=== PATIENT | female | born 1970 | race African-American/Black ===

== ENCOUNTER 2020-01-09 11:43 | Outpatient (CLI) | payer BC, SELFPAY ==
--- NOTE | ~2020-01-09 | CT_ITS ---
EXAMINATION: CT chest wo con DATE: 01/09/2020 12:20 INDICATION: Other disorders of the lung, lung nodule TECHNIQUE: Computed tomography (CT) of the chest was performed without intravenous contrast. The dose -length product (DLP) was 134.68 mGy-cm. Automated exposure control and iterative reconstruction tech [employer] were employed. COMPARISON: None FINDINGS: There is a 4 mm nodule of the left lower lobe on image 67. A 2 mm nodule is present in the right lower lobe on image 54. There is a 4 mm triangular nodule in association with the major fissure on the right, consistent with a fissural lymph node. A 3 mm nodule is present in the left lower lobe on image 74. The lungs are free of acute opacities. There is no pleural effusion or pneumothorax. No pathologically enlarged thoracic lymph nodes are identified. The heart size is normal. IMPRESSION: 1. Pulmonary nodules measuring up to 4 mm. If the patient has no risk factors for malignancy, no furt her follow up is required. If there are risk factors for malignancy (i.e., history of smoking, asbes tos or radiation exposure), consider followup CT in 12 months. Reviewed, dictated and finalized at location A. IMPRESSION: 1. Pulmonary nodules measuring up to 4 mm. If the patient has no risk factors f or malignancy, no further follow up is required. If there are risk factors for malignancy (i.e., history of smoking, asbestos or radiation exposure), conside r followup CT in 12 months.
== END 2020-01-09 11:44 | disposition home or self-care (01) ==
PROVIDERS: PCP Family Medicine; Visit Provider Nurse Practitioner Family
DX: R91.8 Other nonspecific abnormal finding of lung field (principal); J98.4 Other disorders of lung
CPT/HCPCS: 71250

== ENCOUNTER 2020-08-19 14:37 | Outpatient (CLI) | payer BC, SELFPAY ==
[2020-08-19 15:12] LABS: Add Urine Microscopic? NO; Appearance Urine Clear (Clear); Bilirubin Urine Negative (Negative); Blood Urine Negative (Negative); Color Urine Yellow (Yellow); Glucose Urine UA Negative (Negative); Ketones Urine Negative (Negative); Leukocyte Esterase Ur Negative LEU/UL (NEGATIVE); Nitrate Urine Negative (Negative); Protein Urine Negative (Negative); Specific Grav Ur 1.027 (1.001-1.035); Urobilinogen Urine Negative mg/dL (<2.0)
== END 2020-08-19 14:38 | disposition home or self-care (01) ==
PROVIDERS: PCP Family Medicine; Visit Provider Nurse Practitioner Family
DX: N39.0 Urinary tract infection, site not specified (principal)
CPT/HCPCS: 81003; 87086

== ENCOUNTER 2020-10-28 10:45 | Outpatient (CLI) | payer BC, SELFPAY | END 2020-10-28 10:46 | disposition home or self-care (01) | LOC: ANHCOVIDVC 10:45 | PROVIDERS: PCP Family Medicine | DX: Z23 Encounter for immunization (principal) | CPT/HCPCS: 0001A; 91300 ==

== ENCOUNTER 2020-11-18 10:40 | Outpatient (CLI) | payer BC, SELFPAY | END 2020-11-18 10:41 | disposition home or self-care (01) | LOC: ANHCOVIDVC 10:41 | PROVIDERS: PCP Family Medicine | DX: Z23 Encounter for immunization (principal) | CPT/HCPCS: 0002A; 91300 ==

== ENCOUNTER 2020-12-17 12:23 | Outpatient (CLI) | payer BC, SELFPAY ==
--- NOTE | 2020-12-17 16:52 | WPDPFTINT ---
PFT Procedure Performed PFT Procedure Performed Spirometry with Pre/Post Bronchodilator Plethysmography (Lung Vol) Diffusing Cap (DLCO) Flow Vol Loop PFT Interpretation This is a pulmonary function test with pre and post-bronchodilator spirometry, plethysmography and diffusing capacity. The test was performed and results interpreted in accordance with the 2019 and 2005 ATS/ERS Task Force guidelines respectively using the Global Lung Function Initiative-2012 reference equations. Patient demonstrated good effort and cooperation. Reproducibility criteria were met. The quality of the pre bronchodilator spirometry maneuver was Grade A and post bronchodilator spirometry maneuver was Grade A. Findings: Spirometry: Contour the expiratory flow tracing resembles that of whitch's hat . The contour of the inspiratory flow tracing is truncated. The pre bronchodilator FVC is 2.51 L, 69% predicted. The pre bronchodilator FEV1 is 1.96, 68% predicted. The FEV1: FVC ratio is 78%. The post bronchodilator FVC is 2.76 L, representing a 10% increase. The post bronchodilator FEV1 is 2.28 L, representing a 16% increase. Plethysmography: The total lung capacity is 4.20 L, 80% predicted. The functional residual capacity is 2.16 L, 65% predicted. The residual volume is 1.69 L, 87% predicted. Diffusing capacity: The absolute diffusion capacity is 17.8, 71% predicted. The diffusing capacity corrected for alveolar volume is 4.58, 106% predicted. In comparison to the previous pulmonary function test in our laboratory on 06/05/2019. The post bronchodilator FVC is unchanged from 2.56 L to 2.76 L. The post bronchodilator FEV1 is unchanged from 2.15 L to 2.28 L. The total lung capacity is unchanged from 4.39 L to 4.20 L. The functional residual capacity is decreased from 3.15 L to 2.16 L. The residual volume is unchanged from 1.59 L to 1.69 L. The absolute diffusion capacity is unchanged from 17.1 to 17.8. The diffusing capacity corrected for alveolar volume is unchanged from 5.14 to4.58. Impression: There is a moderate restrictive ventilatory abnormality. The spirometry is normal without evidence of an obstructive abnormality. There is significant improvement after inhaling a single dose of albuterol. The absolute diffusing capacity is mildly decreased and normalizes when corrected for alveolar volume. In comparison to the previous pulmonary function test on 06/05/2019 there has been a greater than anticipated decrease in the functional residual capacity with no significant change in the FVC, FEV1, total lung capacity, residual volume, absolute diffusion capacity or the diffusing capacity corrected for alveolar volume. Clinical correlation is recommended
== END 2020-12-17 12:24 | disposition home or self-care (01) ==
LOC: ANHPFT 12:29
PROVIDERS: Visit Provider Nurse Practitioner Family
DX: J98.4 Other disorders of lung (principal); B94.8 Sequelae of other specified infectious and parasitic diseases
CPT/HCPCS: 94060; 94726; 94729

== ENCOUNTER → 2020-12-23 09:07 | Outpatient (CLI) | payer BC, SELFPAY ==
--- NOTE | ~2020-12-23 | CT_ITS ---
EXAMINATION: CT diagnostic chest wo con EXAM DATE: 12/23/2020 09:28 INDICATION: R91.1 - Solitary pulmonary nodule. COVID pneumonia June 2020. TECHNIQUE: Spiral CT of the chest without contrast. Axial, coronal and sagittal images of the chest were reviewed. Coronal maximum intensity pixel images of chest reviewed. The dose-length product ( DLP) for this examination was 167.85 mGy-cm. The exposure was tailored according to patient size (au to mA exposure control), and iterative reconstruction (ASIR) was used as additional dose reduction te chnique. Comparison is made to prior examination from 01/09/2020. FINDINGS: Several small calcified and noncalcified pulmonary nodules within each lung up to 4 mm in size, unchanged consistent with granulomata, postinfectious residua. No suspicious pulmonary nodules. Mild emphysema. Trace pericardial effusion. Tracheobronchial tree is patent. There is no mediast inal, hilar or axillary lymphadenopathy. There is no pneumothorax. Heart normal in size. No dorinda dence of coronary arterial calcification. Upper abdomen is unremarkable. There is thoracic spondyl osis without osteoblastic or osteolytic lesions identified. IMPRESSION: 1. Postinfectious residua. 2. Mild emphysema. Reviewed, dictated and finalized at location A.
== END ==
PROVIDERS: Visit Provider Nurse Practitioner Family
DX: R91.1 Solitary pulmonary nodule (principal); R05 Cough; B94.8 Sequelae of other specified infectious and parasitic diseases; R06.02 Shortness of breath; J43.9 Emphysema, unspecified
CPT/HCPCS: 71250

== ENCOUNTER 2021-03-09 07:55 | Emergency (ER) | payer BC, SELFPAY ==
--- NOTE | ~2021-03-09 | XR_ITS ---
EXAMINATION: XR chest 2V DATE: 03/09/2021 11:39 INDICATION: Posterior chest pain TECHNIQUE: PA and lateral views of the chest were obtained. COMPARISON: Chest radiograph dated 05/12/2017 FINDINGS: The lungs remain clear with no focal airspace opacities, pulmonary edema, pleural effusion or pneumot horax. The cardiomediastinal silhouette is normal. Mild thoracic dextrocurvature with mild mid thorac ic spondylosis. C5-C6 prosthetic disc. IMPRESSION: 1. No acute cardiopulmonary disease. Reviewed, dictated and finalized at location B.
--- NOTE | ~2021-03-09 | XR_ITS ---
EXAMINATION: XR thoracic spine 3V DATE: 03/09/2021 11:39 INDICATION: Back pain. Left shoulder pain. TECHNIQUE: 3 views of thoracic spine were obtained. COMPARISON: Thoracic spine radiographs 09/29/2014 FINDINGS: There is 6 degrees dextrocurvature of thoracic spine. Vertebral body heights and interverte bral disc heights are normal. There are changes of disc replacement at C5-C6. IMPRESSION: 1. No etiology for the patient's symptoms. Reviewed, dictated and finalized at location A.
[2021-03-09 07:58] VITALS: BP 157/107; PULSE 83; RESP 16; TEMP 36.7; O2SAT 98
[2021-03-09 11:02] VITALS: BP 131/101; PULSE 76; RESP 18; O2SAT 99
--- NOTE | 2021-03-09 11:08 | PC.NURSE ---
Dr. Martínez notified of patient's moderate risk on columbia scale. Patient reports that her preparing to end her life was in her 20s.
--- NOTE | 2021-03-09 11:18 | ECG_ITS ---
Measurements Intervals [place] Rate: 75 P: 59 CT: 158 QRS: 14 QRSD: 84 T: 32 QT: 376 QTc: 422 Interpretive Statements SINUS RHYTHM POSSIBLE LEFT ATRIAL ENLARGEMENT DELAYED PRECORDIAL R/S TRANSITION BASELINE ARTIFACT- I, II, III, AVR, AVL, AVF, V2-V6 BORDERLINE ECG Electronically Signed On 03-09-2021 12:12:09 CDT by Miles Schreiber D.O.
--- NOTE | 2021-03-09 11:21 | ED.BACK ---
HPI - Back Pain/Injury General Chief Complaint: Neck Pain/Injury Stated Complaint: back, shoulder cramping Time Seen by Provider: 03/09/21 11:03 Source: patient and RN notes reviewed Mode of arrival: ambulatory Limitations: no limitations History of Present Illness HPI Narrative: This is a 51 year old female who presents for evaluation of left upper back pain. She reports having mild mid upper back pain over the past week. This morning around 4 am she developed sudden onset left upper back, left upper arm pain when her started rubbing her back. Her pain has been constant. She is unable to get comfortable. Her pain is worse with laying on her left side, or liftin her left arm. She also reports she had left anterior chest pain with palpation with this back pain. She denies shortness of breath, nausea, vomiting, abdominal pain, fever or chills. She took ibuprofen 800 mg and gabapentin this morning with out any relief. She states it feels like muscle spasm she has had with prior issues with neck pain. Related Data Allergies Allergy/AdvReac Type Severity Reaction Status Date / Time vancomycin Allergy Unknown Unknown Verified 11/25/20 15:54 Review of Systems Review of Systems: All systems reviewed & are unremarkable except as noted in HPI and below PMFSH Past Medical History Medical History (Updated 03/09/21 @ 13:14 by Yaneth Martínez MD) Anxiety Chronic neck pain GERD (gastroesophageal reflux disease) Paresthesias Pulmonary nodule Surgical History Surgical History (Updated 03/09/21 @ 11:27 by Yaneth Martínez MD) H/O neck surgery Family History Family History Sibling Family history of suicide Social History Social History Smoking status: Never smoker Second hand tobacco smoke exposure: Yes Alcohol intake: current Substance use: never Substance use type: does not use Gender identity (if verbalized by the patient): Female Exam Const: General: alert Orientation/consciousness: patient oriented x3 Eyes: EOM: EOMs intact bilaterally Chest: Chest palpation & inspection: tenderness pectoral muscle on the left diffusely Resp: Effort & Inspection: normal respiratory effort and no retractions Auscultation: clear to auscultation bilaterally Cardio: Rate: regular rate Rhythm: regular rhythm Heart sounds: no murmurs GI: GI Palp: Yes Soft to palpation, No Tenderness to palpation present (GI) and No Guarding due to palpation present (GI) Auscultation: normal bowel sounds Back/Spine/Pelvis: Back: no CVA tenderness Skin: General skin exam: normal color Rashes: no rashes Neuro: General: patient oriented x3, moves all extremities and CN's II-XI intact bilaterally Psych: Mental Status: mental status grossly normal Affect: normal affect Course Reevaluation(s) Reevaluation #1: Patient reports she feels better. Her states patient has started a new position at work in which he is having to repetitive lean over and use her arms. She has been having pain since. I Discussed with patient labs are unremarkable. Her pain seems to be muscular . This does not seem cardiac, . Patient is neurovascular intact so unlikely acute spinal issue such as abscess or stenosis. Date: 03/09/21 Time: 13:10 Vital Signs Vital signs: Vital Signs Temperature 98.0 F 03/09/21 07:58 Pulse Rate 83 03/09/21 07:58 Respiratory Rate 16 03/09/21 07:58 Blood Pressure 157/107 H 03/09/21 07:58 Pulse Oximetry 98 03/09/21 07:58 Temperature 98.0 F 03/09/21 07:58 Pulse Rate 70 03/09/21 13:17 Respiratory Rate 18 03/09/21 11:02 Blood Pressure 127/86 03/09/21 13:17 Pulse Oximetry 98 03/09/21 13:17 MDM - Back Pain/Injury Medical Records Attestation: I reviewed the patient's medical records. Lab Data Attestation: I reviewed the patient's lab results. Re
[2021-03-09] MEDS: HYDROmorphone HCL INJ (*CRX) 1 MG/ML SYR IV PUSH (12:04)
[2021-03-09] MEDS: ONDANSETRON INJ 4 MG/2 ML VIAL IV PUSH (12:09)
[2021-03-09 12:19] LABS: Basophils Percent Auto 0.3 % (0.2-1.2); Eosinophils Absolute Auto 0.2 K/mm3 (0-0.3); Eosinophils Percent Auto 1.8 % (0-4.4); Hematocrit 39.1 % (37.0-47.0); Hemoglobin 12.2 g/dL (12.0-15.0); Immature Granulocyte Absolute 0.03 K/mm3 (0.00-0.031); Immature Granulocyte Percent A 0.3 % (0-0.5); Lymphocytes Absolute Auto 3.54 K/mm3 (0.9-3.2); Mean Corpuscular HGB Conc 31.2 g/dl (32-36); Mean Corpuscular Hemoglobin 28.7 pg (26-34); Mean Platelet Volume 9.8 fl (7.4-10.4); Monocytes Absolute Auto 0.6 K/mm3 (0.1-0.6); Monocytes Percent Auto 6.3 % (2.6-8.5); Neutrophils Absolute Auto 5.4 K/mm3 (1.3-6.7); Neutrophils Percent Auto 55.3 % (45.5-73.1); Platelet Count Result 226 k/mm3 (150-375); Red Blood Count 4.25 M/mm3 (4.2-5.4); Red Cell Distribution Width 13.8 % (11.5-14.5); White Blood Count 9.8 K/mm3 (4.5-10.0)
[2021-03-09 12:30] LABS: INR 0.9; Partial Thromboplastin Time 29.4 SECONDS (22.3-36.8); Prothrombin Time 11.7 Seconds (11.1-14.7)
[2021-03-09 12:33] LABS: D Dimer 0.35 ug/mL (<0.48)
[2021-03-09 12:34] LABS: Alanine Aminotransferase 22 U/L (4-35); Albumin Level 4.1 g/dL (3.5-5.1); Alkaline Phosphatase 100 U/L (38-126); Anion Gap 5 mmol/L (8-16); Aspartate Amino Transferase 22 U/L (14-36); Bilirubin,Total 0.3 mg/dL (0.2-1.3); Blood Urea Nitrogen 18 mg/dL (7-17); CRP 1.6 mg/dL (<1.0); Calcium 9.2 mg/dL (8.4-10.2); Carbon Dioxide 29 mmol/L (22-30); Chloride 105 mmol/L (98-107); Estimated CRCL calculation 99 ml/min; Estimated Glomerular Filt Rate > 60; Glucose 97 mg/dL (65-110); Potassium 4.2 mmol/L (3.4-5.0); Sodium 139 mmol/L (137-145)
[2021-03-09 12:42] LABS: Troponin I < 0.012 ng/mL (0.000-0.034)
[2021-03-09] MEDS: KETOROLAC 30 MG/ML VIAL (*BKC) IV PUSH (13:14)
[2021-03-09 13:17] VITALS: BP 127/86; PULSE 70; O2SAT 98
== END 2021-03-09 13:38 | disposition home or self-care (01) ==
PROVIDERS: Emergency Provider General Practice; PCP Family Medicine
DX: M54.9 Dorsalgia, unspecified (principal); J43.9 Emphysema, unspecified; F41.9 Anxiety disorder, unspecified
CPT/HCPCS: 36415; 71046; 72072; 80053; 84484; 85025; 85380; 85610; 85730; 86140; 93005; 96374; 96375; 99284; J1170; J1885; J2405

== ENCOUNTER 2021-03-10 14:57 | Outpatient (CLI) | payer BC, SELFPAY ==
--- NOTE | ~2021-03-10 | CT_ITS ---
EXAMINATION: CT cervical spine wo con DATE: 03/10/2021 15:37 INDICATION: Neck pain. Left upper extremity paresthesias. TECHNIQUE: Computed tomography (CT) of the cervical spine was performed without intravenous contrast. Automated exposure control and iterative reconstruction technique were employed. The dose-length pro duct was 479.38 mGy-cm. COMPARISON: Neck CT 10/02/2013 FINDINGS: There is kyphosis of cervical spine. There are changes of disc replacement at C5-C6 with chavez bsidence at C6. Vertebral body heights are normal. There is mildly decreased disc height at C3-C4. Th e following disc levels are specifically discussed: C2-C3: There is no uncovertebral joint osteoarthritis. There is severe right and mild left facet join t osteoarthritis. There is no neural foraminal stenosis. There is no central canal stenosis. C3-C4: There is no uncovertebral joint osteoarthritis. There is mild bilateral facet joint osteoarthr itis. There is no neural foraminal stenosis. There is no central canal stenosis. C4-C5: There is no uncovertebral joint osteoarthritis. There is mild right facet joint osteoarthritis . There is no neural foraminal stenosis. There is no central canal stenosis. C5-C6: There is moderate bilateral uncovertebral joint hypertrophy. There is mild bilateral facet azael nt osteoarthritis. There is mild bilateral neural foraminal stenosis. There is mild central canal theresa nosis. C6-C7: There is no uncovertebral joint osteoarthritis. There is no facet joint osteoarthritis. There is no neural foraminal stenosis. There is no central canal stenosis. C7-T1: There is no uncovertebral joint osteoarthritis. There is mild bilateral facet joint osteoarthr itis. There is no neural foraminal stenosis. There is no central canal stenosis. IMPRESSION: 1. Disc replacement at C5-C6 with abnormal subsidence at C6. 2. Mild cervical spondylosis. Reviewed, dictated and finalized at location A.
== END 2021-03-10 14:58 | disposition home or self-care (01) ==
PROVIDERS: PCP Family Medicine; Visit Provider Nurse Practitioner Family
DX: M54.2 Cervicalgia (principal); M54.6 Pain in thoracic spine; R20.0 Anesthesia of skin; R20.2 Paresthesia of skin; M47.816 Spondylosis without myelopathy or radiculopathy, lumbar region
CPT/HCPCS: 72125

== ENCOUNTER 2021-04-29 00:21 | Day surgery (SDC) | payer BC, SELFPAY ==
[2021-04-15 14:40] VITALS: BMI 31.6
[2021-04-29 06:41] VITALS: BP 165/98; PULSE 80; RESP 18; TEMP 36.2; O2SAT 98
[2021-04-29] MEDS: LACTATED RINGERS 1,000 ML 150 ML IV CONT (06:46)
--- NOTE | 2021-04-29 07:27 | WPDGICN ---
Assessment and Plan Assessment and plan (1) Encounter for screening colonoscopy: Code(s): Z12.11 - Encounter for screening for malignant neoplasm of colon Status: Acute Assessment and Plan: Patient presents for screening colonoscopy. Appears to be at average risk for colon polyps. GI Consult Note Consult date/time: 04/29/21 07:27 HPI: Irma Urbina is a 51 year old female Presents for screening colonoscopy. Her current weight appetite bowel movements are normal. Patient denies abdominal pain. She has had no bleeding. Family history is noncontributory. patient presents today for neoplasia screening colonoscopy. Review of Systems Review of Systems: All systems reviewed & are unremarkable except as noted in HPI and below PMFSH Past Medical History Medical History Anxiety Chronic neck pain GERD (gastroesophageal reflux disease) Paresthesias Pulmonary nodule Surgical History Surgical History H/O neck surgery Family History Family History Sibling Family history of suicide Social History Social History Smoking status: Never smoker Second hand tobacco smoke exposure: Yes Alcohol intake: current Alcohol use details: social Substance use: never Substance use type: does not use Living arrangements: with family Gender identity (if verbalized by the patient): Female Sexual Orientation (if Verbalized by the Patient): Straight or Heterosexual Spiritual care concerns: No Meds Home Medications and Allergies Home Medications Medication Instructions Recorded Confirmed Type ipratropium 0.5 mg-albuterol 3 mg 3 ml INHALATION Q4H PRN #90 ml 10/02/19 04/29/21 Rx (2.5 mg base)/3 mL nebulization soln budesonide-formoterol HFA 160 2 puff INHALATION Q12H 90 Days #3 09/22/20 04/29/21 Rx mcg-4.5 mcg/actuation aerosol amp inhaler pantoprazole 40 mg tablet,delayed 40 mg PO QAM #90 tablet 10/01/20 04/29/21 Rx release valacyclovir 500 mg tablet 500 mg PO DAILY #90 tablet 10/01/20 04/29/21 Rx albuterol sulfate 90 mcg/actuation 2 inh INHALATION Q4-6H PRN #8.5 gm 02/18/21 04/29/21 Rx aerosol inhaler ibuprofen 800 mg PO TID PRN #20 tablet 03/09/21 04/29/21 Rx oxybutynin chloride 5 mg 5 mg PO DAILY #30 tablet 03/18/21 04/29/21 Rx tablet,extended release 24 hr tramadol 50 mg tablet 50 mg PO Q6H PRN #30 tablet 04/09/21 04/29/21 Rx sertraline 50 mg tablet 75 mg PO DAILY 30 Days #45 tablet 04/13/21 04/29/21 Rx fexofenadine [Ranjana Allergy] 180 mg PO DAILY 04/15/21 04/29/21 History meloxicam [Mobic] 7.5 mg PO DAILY 04/15/21 04/29/21 History montelukast [Singulair] 10 mg PO DAILY 04/15/21 04/29/21 History nortriptyline 25 mg capsule 25 mg PO QHS #90 cap 04/16/21 04/29/21 Rx gabapentin 300 mg capsule 300 mg PO QHS #90 cap 04/23/21 04/29/21 Rx Allergies Allergy/AdvReac Type Severity Reaction Status Date / Time vancomycin Allergy Unknown Unknown Verified 04/29/21 06:40 Vital Signs Vital Signs - 24 hr 04/29/21 06:41 Temperature 97.1 F L Pulse Rate 80 Respiratory Rate 18 Blood Pressure 165/98 H Pulse Oximetry 98 Exam Narrative: Physical exam reveals patient to be alert. Vital signs are stable. HEENT exam is unremarkable. Patient is anicteric. Lungs are clear to auscultation and percussion. Heart is without murmur or extra sounds. Abdominal exam bowel sounds present soft nontender with no organomegaly. Digital external rectal exam is normal.
--- NOTE | 2021-04-29 07:58 | WPDANESEPPF ---
Anes - Initial Pre Proc Eval Procedure: Operation Date: 04/29/21 08:00 Proposed Procedures p Screening Colonoscopy - Asif Blake MD Date/Time: 04/29/21 07:58 Surgeon: Asif Blake MD Pre Op Diagnosis: neoplasm screening Patient Data Age: 51 Gender: F Height: 1.78 m Weight: 115.5 kg Last Vital Signs Temp 97.1 F L 04/29/21 06:41 Pulse 80 04/29/21 06:41 Resp 18 04/29/21 06:41 BP 165/98 H 04/29/21 06:41 Pulse Ox 98 04/29/21 06:41 Allergies Allergy/AdvReac Type Severity Reaction Status Date / Time vancomycin Allergy Unknown Unknown Verified 04/29/21 06:40 Home Medications Medication Instructions Recorded Confirmed Type ipratropium 0.5 mg-albuterol 3 mg 3 ml INHALATION Q4H PRN #90 ml 10/02/19 04/29/21 Rx (2.5 mg base)/3 mL nebulization soln budesonide-formoterol HFA 160 2 puff INHALATION Q12H 90 Days #3 09/22/20 04/29/21 Rx mcg-4.5 mcg/actuation aerosol amp inhaler pantoprazole 40 mg tablet,delayed 40 mg PO QAM #90 tablet 10/01/20 04/29/21 Rx release valacyclovir 500 mg tablet 500 mg PO DAILY #90 tablet 10/01/20 04/29/21 Rx albuterol sulfate 90 mcg/actuation 2 inh INHALATION Q4-6H PRN #8.5 gm 02/18/21 04/29/21 Rx aerosol inhaler ibuprofen 800 mg PO TID PRN #20 tablet 03/09/21 04/29/21 Rx oxybutynin chloride 5 mg 5 mg PO DAILY #30 tablet 03/18/21 04/29/21 Rx tablet,extended release 24 hr tramadol 50 mg tablet 50 mg PO Q6H PRN #30 tablet 04/09/21 04/29/21 Rx sertraline 50 mg tablet 75 mg PO DAILY 30 Days #45 tablet 04/13/21 04/29/21 Rx fexofenadine [Ranjana Allergy] 180 mg PO DAILY 04/15/21 04/29/21 History meloxicam [Mobic] 7.5 mg PO DAILY 04/15/21 04/29/21 History montelukast [Singulair] 10 mg PO DAILY 04/15/21 04/29/21 History nortriptyline 25 mg capsule 25 mg PO QHS #90 cap 04/16/21 04/29/21 Rx gabapentin 300 mg capsule 300 mg PO QHS #90 cap 04/23/21 04/29/21 Rx Patient hx anesthesia problems: none Family hx anesthesia problems: none Results Review: All pre-operative results and documents have been reviewed as part of the pre-operative evaluation. [facility] Past Medical History Medical History Anxiety Chronic neck pain GERD (gastroesophageal reflux disease) Paresthesias Pulmonary nodule Surgical History Surgical History H/O neck surgery Family History Family History Sibling Family history of suicide Social History Social History Smoking status: Never smoker Second hand tobacco smoke exposure: Yes Alcohol intake: current Alcohol use details: social Substance use: never Substance use type: does not use Living arrangements: with family Gender identity (if verbalized by the patient): Female Sexual Orientation (if Verbalized by the Patient): Straight or Heterosexual Spiritual care concerns: No Anes - Eval Final PreProcedure Day of Procedure 04/29/21 07:58 Patient weight: obese Heart: regular rate and rhythm Lungs: clear to auscultation Airway: Mallampati scale class III Neurological: alert and oriented Last oral intake: >/= 8 hours ASA classification: III Emergent: no Anesthetic plan: proceed Anesthesia type and monitoring: general GIVS and standard monitoring Results Review: All pre-operative results and documents have been reviewed as part of the pre-operative evaluation. Informed Consent: The patient's anesthetic plan and its attendant risks and benefits were discussed with the patient/family/POA. Questions were solicited and answers provided to the satisfaction of the patient/family/POA.
[2021-04-29 08:28] VITALS: BP 137/90; PULSE 75; RESP 24; O2SAT 100
[2021-04-29 08:38] VITALS: BP 143/79; PULSE 73; RESP 20; O2SAT 100
[2021-04-29 08:48] VITALS: BP 158/113; PULSE 71; RESP 20; O2SAT 100
== END 2021-04-29 09:00 | disposition home or self-care (01) ==
PROVIDERS: PCP Family Medicine; Visit Provider Internal Medicine Gastroenterology
PROC: 0DJD8ZZ Inspection of Lower Intestinal Tract, Via Natural or Artificial Opening Endoscopic (ICD-10-PCS; CPT 45378; principal; 2021-04-29 08:00)
DX: Z12.11 Encounter for screening for malignant neoplasm of colon (principal); K62.1 Rectal polyp; K64.8 Other hemorrhoids; K21.9 Gastro-esophageal reflux disease without esophagitis; F41.9 Anxiety disorder, unspecified; Z79.51 Long term (current) use of inhaled steroids; E66.9 Obesity, unspecified; Z68.36 Body mass index [BMI] 36.0-36.9, adult
CPT/HCPCS: 45385; 88305; J2704; J7120

== ENCOUNTER 2021-08-13 13:48 | Emergency (ER) | payer BC, SELFPAY ==
[2021-08-13 14:06] VITALS: BP 140/82; PULSE 88; RESP 16; TEMP 36.4; O2SAT 100
--- NOTE | 2021-08-13 14:19 | ED.DENTAL ---
HPI - Dental/Oral General Chief complaint: Dental/Oral Stated complaint: Tooth Pain Time Seen by Provider: 08/13/21 14:19 Source: patient Mode of arrival: ambulatory Limitations: no limitations History of Present Illness HPI Narrative: Irma Urbina is a 51 yo female with a PMH of asthma, GERD, herpes, chronic pain, who comes with c/o dental pain x 4-5 days. Pain radiates into neck, She has a dental appt beginning of Aug. Related Data Home Medications Medication Instructions Recorded Confirmed fexofenadine [Ranjana Allergy] 180 mg PO DAILY 04/15/21 07/21/21 meloxicam [Mobic] 7.5 mg PO DAILY 04/15/21 07/21/21 oxycodone 08/13/21 Allergies Allergy/AdvReac Type Severity Reaction Status Date / Time vancomycin Allergy Unknown Unknown Verified 07/21/21 09:50 Review of Systems Review of Systems: CONSTITUTIONAL: Denies fever, chills, sweats. EYES: Denies visual changes, redness, discharge. ENT: Denies rhinorrhea, congestion, sore throat, otalgia. CARDIOVASCULAR: Denies chest pain, palpitations, edema. RESPIRATORY: Denies dyspnea, wheezing, cough GASTROINTESTINAL: Denies abdominal pain, nausea, vomiting, diarrhea. GENITOURINARY: Denies dysuria, hematuria, abnormal discharge SKIN: Denies rash or itching. NEUROLOGIC: Denies numbness, or focal weakness. PSYCHIATRIC: Denies anxiety or depression. has dental pain, swelling in R lower jaw PMFSH Past Medical History Medical History Anxiety Chronic neck pain GERD (gastroesophageal reflux disease) Paresthesias Pulmonary nodule Surgical History Surgical History H/O neck surgery Family History Family History Sibling Family history of suicide Social History Social History Smoking status: Never smoker Second hand tobacco smoke exposure: Yes Alcohol intake: current Alcohol use details: social Substance use: never Substance use type: does not use Gender identity (if verbalized by the patient): Female Sexual Orientation (if Verbalized by the Patient): Straight or Heterosexual Spiritual care concerns: No Comments At time of signature, I agree with nursing past medical, surgical, social and family history. There is no relevant family history pertinent to the presenting complaint. Exam Narrative: GENERAL: This is a well-nourished, well-developed patient, in mild distress. HEAD: normocephalic, atraumatic. EYES: Sclera clear/white. Vision is grossly intact. EARS: External ears normal, Hearing grossly intact. NOSE: External nose normal without nasal discharge, nares without redness, no rhinorrhea. THROAT: Mucous membranes moist, posterior pharynx pink, right second to last molar, tooth 31, has swelling and appears infected and she has mild swelling in her right cheek NECK: Neck supple, non-tender CARDIOVASCULAR: Regular rate and rhythm without murmurs, gallops, or rubs. RESPIRATORY: Clear to auscultation. Breath sounds equal bilaterally. No wheezes, rales, or rhonchi. GASTROINTESTINAL: Abdomen soft, SKIN: warm, intact with no suspicious lesions or rash, good texture and turgor. NEURO: awake, alert, and oriented to person, place and time. There were no obvious focal neurologic abnormalities. Steady gait EXTREMITIES: Normal range of motion. BACK: Nontender without deformity Course Course Emergency Course: Patient comes with dental pain in her right lower jaw x2 3 days, she has an appointment with the dentist on the beginning August Started on penicillin VK 500 mg 1 3 times daily, Tylenol 3, ibuprofen Level of Care: Express Care Visit Vital Signs Vital signs: Vital Signs Temperature 97.5 F L 08/13/21 14:06 Pulse Rate 88 08/13/21 14:06 Respiratory Rate 16 08/13/21 14:06 Blood Pressure 140/82 08/13/21 14:06 Pulse Oxi
[2021-08-13 14:38] VITALS: BP 140/82; PULSE 88; RESP 16; TEMP 36.4; O2SAT 100
== END 2021-08-13 14:40 | disposition home or self-care (01) ==
PROVIDERS: Emergency Provider Nurse Practitioner; PCP Family Medicine
DX: K04.7 Periapical abscess without sinus (principal); K21.9 Gastro-esophageal reflux disease without esophagitis; J45.909 Unspecified asthma, uncomplicated
CPT/HCPCS: 99213; G0463

== ENCOUNTER 2022-02-05 04:10 | Emergency (ER) | payer BC, SELFPAY ==
[2022-02-05 04:15] VITALS: BP 144/89; PULSE 86; RESP 16; TEMP 36.4; O2SAT 99
--- NOTE | 2022-02-05 04:49 | ED.GENADULT ---
HPI - General Adult General Chief complaint: Back Pain/Injury Stated complaint: back pain x 1 month Time Seen by Provider: 02/05/22 04:25 History of Present Illness HPI narrative: 51-year-old female presented to the emergency department for evaluation of lower back pain after she sneezed tonight. Patient states she is having right-sided lower back pain that radiates down her right lower leg. Patient states she has pain rating down the leg but denies any associated numbness or weakness. Patient denies any prior surgical history of her back. Related Data Allergies Allergy/AdvReac Type Severity Reaction Status Date / Time vancomycin Allergy Unknown Unknown Verified 02/05/22 04:18 Review of Systems Review of Systems: CONSTITUTIONAL: Denies fever, chills, or sweats. EYES: Denies visual changes, redness, or discharge. ENT: Denies rhinorrhea, congestion, sore throat, or otalgia. CARDIOVASCULAR: Denies chest pain, palpitations, or edema. RESPIRATORY: Denies cough or dyspnea. GASTROINTESTINAL: Denies abdominal pain, nausea, vomiting, or diarrhea. GENITOURINARY: Denies dysuria or hematuria. SKIN: Denies rash or itching. MUSCULOSKELETAL: Back pain NEUROLOGIC: Denies headache, numbness, or weakness. PMFSH Past Medical History Medical History Anxiety Chronic neck pain GERD (gastroesophageal reflux disease) Paresthesias Pulmonary nodule Surgical History Surgical History H/O neck surgery Family History Family History Sibling Family history of suicide Social History Social History Smoking status: Never smoker Second hand tobacco smoke exposure: Yes Alcohol intake: current Alcohol use details: social Substance use: never Substance use type: does not use Gender identity (if verbalized by the patient): Female Sexual Orientation (if Verbalized by the Patient): Straight or Heterosexual Spiritual care concerns: No Exam Narrative: APPEARANCE: Well appearing, no pain, no distress, well-nourished. HEAD: normocephalic, atraumatic. EYES: PERRLA/EOMI, conjunctivae clear. NOSE: Normal no drainage NECK: Supple. No adenopathy, no masses. RESPIRATORY: Airway patent, respirations nonlabored. Clear to auscultation bilaterally, no rales, rhonchi, wheezing. CARDIOVASCULAR: Regular rate and rhythm without murmurs rubs or gallops. ABDOMINAL: Soft, nontender, nondistended, normal bowel sounds MUSCULOSKELETAL: No midline back tenderness to palpation. Patient did have tenderness over the right buttock. NEURO: Alert. Cranial nerves II through XII intact. Grossly intact SKIN: Warm, dry. Normal Color Course Vital Signs Vital signs: Vital Signs Temperature 97.5 F L 02/05/22 04:15 Pulse Rate 86 02/05/22 04:15 Respiratory Rate 16 02/05/22 04:15 Blood Pressure 144/89 H 02/05/22 04:15 Pulse Oximetry 99 02/05/22 04:15 Oxygen Delivery Room Air 02/05/22 04:15 Temperature 97.5 F L 02/05/22 04:15 Pulse Rate 80 02/05/22 05:14 Respiratory Rate 16 02/05/22 05:14 Blood Pressure 149/89 H 02/05/22 05:14 Pulse Oximetry 100 02/05/22 05:14 Oxygen Delivery Room Air 02/05/22 04:15 Medical Decision Making Vital Signs Vital Signs: Vital Signs Temperature 97.5 F L 02/05/22 04:15 Pulse Rate 86 02/05/22 04:15 Respiratory Rate 16 02/05/22 04:15 Blood Pressure 144/89 H 02/05/22 04:15 Pulse Oximetry 99 02/05/22 04:15 Oxygen Delivery Room Air 02/05/22 04:15 Temperature 97.5 F L 02/05/22 04:15 Pulse Rate 80 02/05/22 05:14 Respiratory Rate 16 02/05/22 05:14 Blood Pressure 149/89 H 02/05/22 05:14 Pulse Oximetry 100 02/05/22 05:14 Oxygen Delivery Room Air 02/05/22 04:15 Discharge Plan Discharge Clinical Impression: Sciatica
[2022-02-05] MEDS: HYDROcodone/acetaminophen (*CRX) 5-325 MG TABLET 1 TAB PO (04:54)
[2022-02-05] MEDS: KETOROLAC 30 MG/ML VIAL (*BKC) IM (04:55)
[2022-02-05 05:14] VITALS: BP 149/89; PULSE 80; RESP 16; O2SAT 100
== END 2022-02-05 05:16 | disposition home or self-care (01) ==
PROVIDERS: Emergency Provider Emergency Medicine; PCP Family Medicine
DX: M54.41 Lumbago with sciatica, right side (principal); K21.9 Gastro-esophageal reflux disease without esophagitis; Z77.22 Contact with and (suspected) exposure to environmental tobacco smoke (acute) (chronic)
CPT/HCPCS: 96372; 99283; A9270; J1885

== ENCOUNTER → 2022-03-05 00:02 | Outpatient (CLI) | payer BC, SELFPAY ==
[2022-03-05 10:53] LABS: Influenza A QL RT-PCR Negative (Negative); Influenza B QL RT-PCR Negative (Negative); SARS-CoV-2 RNA PCR Negative
== END ==
PROVIDERS: PCP Family Medicine; Visit Provider Physician Assistant
DX: R05.9 Cough, unspecified (principal); R06.02 Shortness of breath; Z20.822 Contact with and (suspected) exposure to COVID-19
CPT/HCPCS: 87502; C9803; U0003; U0005

== ENCOUNTER 2022-04-20 09:16 | Emergency (ER) | payer BC, SELFPAY ==
[2022-04-20 09:35] VITALS: BP 142/83; PULSE 87; RESP 16; TEMP 36.8; O2SAT 100
--- NOTE | 2022-04-20 09:55 | ED.SKABFB ---
HPI - Skin/Abscess/Foreign Bdy General Chief complaint: Skin/Abscess/Foreign Body Stated complaint: right thumb pain Time Seen by Provider: 04/20/22 10:13 Source: patient and RN notes reviewed Mode of arrival: ambulatory Limitations: no limitations History of Present Illness HPI narrative: 52-year-old female presents for concern for splinter in the first digit of her right hand. Reports she got a wood splinter yesterday and got part of it out. She reports redness and tenderness in the area. She denies decreased sensation, strength, range of motion in the digit. MD complaint: foreign body Related Data Home Medications Medication Instructions Recorded Confirmed duloxetine 30 mg capsule,delayed 30 mg PO DAILY 04/20/22 04/20/22 release methocarbamol 750 mg tablet 750 mg PO DAILY 04/20/22 04/20/22 Allergies Allergy/AdvReac Type Severity Reaction Status Date / Time vancomycin Allergy Unknown Unknown Verified 04/20/22 09:47 Review of Systems Review of Systems: CONSTITUTIONAL: Denies malaise, chills, sweats, or fever. SKIN: Reports foreign body in the first digit of the right hand MUSCULOSKELETAL: Muscle skeletal pain All systems reviewed & are unremarkable except as noted in HPI and below PMFSH Past Medical History Medical History Anxiety Chronic neck pain GERD (gastroesophageal reflux disease) Paresthesias Pulmonary nodule Surgical History Surgical History H/O neck surgery Family History Family History Sibling Family history of suicide Social History Social History Smoking status: Never smoker Second hand tobacco smoke exposure: Yes Alcohol intake: current Alcohol use details: social Substance use: never Substance use type: does not use Gender identity (if verbalized by the patient): Female Sexual Orientation (if Verbalized by the Patient): Straight or Heterosexual Spiritual care concerns: No Comments At time of signature, agree with nursing past medical, surgical, social and family history. There is no relevant family history pertinent to the presenting complaint Exam Narrative: GENERAL: Well-appearing, well-nourished, and in no acute distress. HEAD: Normocephalic, atraumatic. EYES: PERRLA, conjunctivae clear ENT: Mucous membranes moist. NECK: Supple. CHEST: Clear to auscultation. No respiratory distress. HEART: Regular rate and rhythm. SKIN: Warm, dry. Erythema with mild warmth noted to the lateral first digit of the right hand near the MIP joint without induration, significant edema. Small raised area that could indicate a foreign body noted. NEURO: Alert and oriented x3. PSYCH: Normal mood and affect Course Course Emergency Course: Patient is aware of diagnosis, understands and agrees to treatment plan. Anticipatory guidance given. Patient agrees to follow-up as directed and is aware of reasons to seek care at the emergency department. Portions of this record may have been created with voice recognition software Level of Care: Express Care Visit Vital Signs Vital signs: Vital Signs Temperature 98.2 F 04/20/22 09:35 Pulse Rate 87 04/20/22 09:35 Respiratory Rate 16 04/20/22 09:35 Blood Pressure 142/83 H 04/20/22 09:35 Pulse Oximetry 100 04/20/22 09:35 Oxygen Delivery Room Air 04/20/22 09:35 Temperature 98.2 F 04/20/22 09:35 Pulse Rate 87 04/20/22 09:35 Respiratory Rate 16 04/20/22 09:35 Blood Pressure 142/83 H 04/20/22 09:35 Pulse Oximetry 100 04/20/22 09:35 Oxygen Delivery Room Air 04/20/22 09:35 Reviewed. Procedures Foreign Body Removal Foreign Body #1: Foreign Body Removal Date: 04/20/22 Foreign Body Removal Time: 11:00 Time Out Performed: yes Site: r
[2022-04-20] MEDS: LIDOCAINE/PRILOCAINE CREAM 2.5-2.5% TUBE 1 EACH TOPICAL (10:29)
== END 2022-04-20 11:30 | disposition home or self-care (01) ==
PROVIDERS: Emergency Provider Nurse Practitioner; PCP Family Medicine
DX: S61.041A Puncture wound with foreign body of right thumb without damage to nail, initial encounter (principal); W45.8XXA Other foreign body or object entering through skin, initial encounter; K21.9 Gastro-esophageal reflux disease without esophagitis; F41.9 Anxiety disorder, unspecified
CPT/HCPCS: 10120; 99213; G0463

== ENCOUNTER 2022-07-13 02:04 | Emergency (ER) | payer BC, SELFPAY ==
--- NOTE | ~2022-07-13 | XR_ITS ---
Portable chest x-ray Comparison: 03/09/2021 Clinical History: Cough Findings: Lungs are clear, without focal consolidation or pleural effusion. Cardiomediastinal silho uette is stable. Stable cervical spine fixation hardware. Impression: Clear lungs. Reviewed, dictated and finalized at [facility]. ESSIONAL NURSE Impression: Clear lungs.
[2022-07-13 02:10] VITALS: BP 186/76; PULSE 98; RESP 18; TEMP 36.5; O2SAT 98
[2022-07-13 02:27] VITALS: O2SAT 98
--- NOTE | 2022-07-13 02:38 | PC.NURSE ---
RT notified of ordered breathing treatment
[2022-07-13 02:45] VITALS: PULSE 105; RESP 22
[2022-07-13] MEDS: ALBUTEROL SULFATE NEB 2.5 MG/3 ML INH 5 MG INHALATION (02:45)
[2022-07-13] MEDS: IPRATROPIUM BR 0.02% INH SOLN 0.5 MG/2.5 ML VIAL INHALATION (02:45)
[2022-07-13 02:57] VITALS: PULSE 111; RESP 20
--- NOTE | 2022-07-13 02:59 | PC.NURSE ---
Nurse report given to Stella FAITH
--- NOTE | 2022-07-13 03:16 | ED.GENADULT ---
HPI - General Adult General Chief complaint: Upper Respiratory Infection Stated complaint: flu like sx Time Seen by Provider: 07/13/22 02:14 History of Present Illness HPI narrative: Patient is a 52-year-old female who presents ER with cold symptoms. On 07/10/2022 she began having sinus congestion and cough and sore throat. She then developed body aches. She has been having fevers and chills since then. She reports her son is currently sick but is not known what he has. She has had a flu shot and COVID shot. No alleviating factors. Constant. Related Data Allergies Allergy/AdvReac Type Severity Reaction Status Date / Time vancomycin Allergy Unknown Unknown Verified 06/15/22 14:01 Review of Systems Review of Systems: All systems reviewed & are unremarkable except as noted in HPI and below Constitutional: Constitutional: Reports chills, Reports fatigue and Reports fever(s) ENT: Reports nasal congestion and Reports sore throat Cardiovascular: Cardiovascular: Denies chest pain, Denies rapid heart rate and Denies radiating jaw, neck or arm pain Respiratory: Respiratory: Reports chest congestion, Reports cough and Denies dyspnea Gastrointestinal: Gastrointestinal: Denies abdominal pain, Denies nausea and Denies vomiting Musculoskeletal: Musculoskeletal: Reports myalgias and Denies arthralgias PMFSH Past Medical History Medical History Anxiety Chronic neck pain GERD (gastroesophageal reflux disease) Paresthesias Pulmonary nodule Surgical History Surgical History H/O neck surgery Family History Family History Sibling Family history of suicide Social History Social History Smoking status: Never smoker Second hand tobacco smoke exposure: Yes Alcohol intake: current Alcohol use details: social Substance use: never Substance use type: does not use Gender identity (if verbalized by the patient): Female Sexual Orientation (if Verbalized by the Patient): Straight or Heterosexual Spiritual care concerns: No Exam Narrative: GENERAL: Uncomfortable-appearing, well-nourished, and in no acute distress. HEAD: Normocephalic, atraumatic. EYES: PERRL and EOMI. ENT: Mucous membranes moist. CHEST: Scattered rales and referred upper airway sounds. No respiratory distress. HEART: Regular rate and rhythm. Normal peripheral pulses. ABDOMEN: Soft, nontender, nondistended. EXTREMITIES: Normal range of motion. No edema. SKIN: Warm, dry, no rash. NEURO: Alert and oriented x3. PSYCH: Normal mood and affect. Course Course Emergency Course: Patient informed of results. Patient feels no real change with nebulizer treatment. Discharge home. Not a candidate for Tamiflu. Vital Signs Vital signs: Vital Signs Temperature 97.7 F 07/13/22 02:10 Pulse Rate 98 07/13/22 02:10 Respiratory Rate 18 07/13/22 02:10 Blood Pressure 186/76 H 07/13/22 02:10 Pulse Oximetry 98 07/13/22 02:10 Temperature 97.7 F 07/13/22 02:10 Pulse Rate 111 H 07/13/22 02:57 Respiratory Rate 20 07/13/22 02:57 Blood Pressure 186/76 H 07/13/22 02:10 Pulse Oximetry 98 07/13/22 02:27 Oxygen Delivery Room Air 07/13/22 02:27 Medical Decision Making Vital Signs Vital Signs: Vital Signs Temperature 97.7 F 07/13/22 02:10 Pulse Rate 98 07/13/22 02:10 Respiratory Rate 18 07/13/22 02:10 Blood Pressure 186/76 H 07/13/22 02:10 Pulse Oximetry 98 07/13/22 02:10 Temperature 97.7 F 07/13/22 02:10 Pulse Rate 111 H 07/13/22 02:57 Respiratory Rate 20 07/13/22 02:57 Blood Pressure 186/76 H 07/13/22 02:10 Pulse Oximetry 98 07/13/22 02:27 Oxygen Delivery Room Air 07/13/22 02:27 Lab Data Labs: Lab Results 07/13/22 Range/Units 02:28 Influenza A (RT-P
[2022-07-13 03:26] LABS: Influenza A QL RT-PCR Positive (Negative); Influenza B QL RT-PCR Negative (Negative); RSV RNA, RT-PCR Negative (Negative); SARS-CoV-2 RNA PCR Negative
[2022-07-13 03:57] VITALS: O2SAT 98
== END 2022-07-13 03:59 | disposition home or self-care (01) ==
PROVIDERS: Emergency Provider Emergency Medicine; PCP Family Medicine
DX: J10.1 Influenza due to other identified influenza virus with other respiratory manifestations (principal); Z20.822 Contact with and (suspected) exposure to COVID-19; K21.9 Gastro-esophageal reflux disease without esophagitis; Z77.29 Contact with and (suspected) exposure to other hazardous substances
CPT/HCPCS: 71045; 87637; 94640; 99283

== ENCOUNTER 2022-08-20 15:50 | Emergency (ER) | payer BC, SELFPAY ==
[2022-08-20 16:01] VITALS: BP 147/79; PULSE 108; RESP 22; TEMP 36.6; O2SAT 98
--- NOTE | 2022-08-20 16:03 | ED.URI ---
HPI - URI/Sore Throat General Chief Complaint: Upper Respiratory Infection Stated Complaint: SOB Time Seen by Provider: 08/20/22 16:06 Source: patient Mode of arrival: ambulatory Limitations: no limitations History of Present Illness HPI Narrative: 52 y/o female presented for c/o shortness of breath without improvement for about one month. Patient was dx with pneumonia in Jul after having influenza in June. Completed z-pack and Medrol pack as directed per PCP. States she continues to have a productive cough, foul taste of sputum, and shortness of breath. Also states she has a hoarse voice which she says should be better by now. Patient used albuterol nebulizer SEAFOOD PACKER, which she bought during pandemic; denies history of COPD or lung disease. Denies smoking history. Denies fatigue, chest pain, palpitations, dizziness, n/v/d/f/c. Related Data Home Medications Medication Instructions Recorded Confirmed gabapentin 600 mg tablet 600 mg PO QID 08/20/22 08/20/22 nortriptyline 25 mg capsule 25 mg PO DAILY 08/20/22 08/20/22 Allergies Allergy/AdvReac Type Severity Reaction Status Date / Time vancomycin Allergy Unknown Unknown Verified 08/20/22 15:56 Review of Systems Review of Systems: CONSTITUTIONAL: Denies body aches, fever, chills, or sweats. EYES: Denies visual changes, redness, or discharge. ENT: Denies rhinorrhea, congestion, sore throat, or otalgia. CARDIOVASCULAR: Denies chest pain, palpitations, or edema. RESPIRATORY: Reports cough, sob GASTROINTESTINAL: Denies abdominal pain, nausea, vomiting, or diarrhea. NEUROLOGIC: Denies headache, numbness, tingling, or weakness. All systems reviewed & are unremarkable except as noted in HPI and below PMFSH Past Medical History Medical History Anxiety Chronic neck pain GERD (gastroesophageal reflux disease) Paresthesias Pulmonary nodule Surgical History Surgical History H/O neck surgery History of arthroscopy of right shoulder Family History Family History Sibling Family history of suicide Social History Social History Smoking status: Never smoker Second hand tobacco smoke exposure: Yes Alcohol intake: current Alcohol use details: social Substance use: never Substance use type: does not use Living arrangements: with family Occupation/Education: occupation Gender identity (if verbalized by the patient): Female Sexual Orientation (if Verbalized by the Patient): Straight or Heterosexual Spiritual care concerns: No Comments At time of signature, I have reviewed and agree with nursing past medical, surgical, social and family history unless otherwise noted. Please see nursing chart for further information. There is no relevant family history pertinent to the presenting complaint Exam Narrative: GENERAL: Well-appearing, in no acute distress. EYES: EOMI. No redness or drainage. Conjunctivae normal. ENT: Mucous membranes pink and moist. No rhinorrhea. TMs normal bilaterally. Hoarse voice. Throat normal. No soft palate swelling. Uvula midline. NECK: Normal AROM. Supple. CHEST: No respiratory distress. Lungs clear throughout. Talkative, full sentences without difficulty. HEART: Regular rate and rhythm. SKIN: Warm, dry, no rash. Capillary refill normal. Normal skin turgor. Left anterior shoulder surgical incision appears healing. NEURO: Alert and oriented x3. Course Course Emergency Course: Patient is aware of diagnosis, understands and agrees to treatment plan. Anticipatory guidance given. Patient agrees to follow-up as directed and is aware of reasons to seek care at the emergency department. Portions of this record may have been created with voice recognition software Level of Care: Express Care Visit
[2022-08-20 16:05] VITALS: O2SAT 98
== END 2022-08-20 16:06 | disposition home or self-care (01) ==
PROVIDERS: Emergency Provider Nurse Practitioner Family; PCP Family Medicine
DX: R06.02 Shortness of breath (principal); F41.9 Anxiety disorder, unspecified
CPT/HCPCS: 99213; G0463

== ENCOUNTER 2022-10-21 11:52 | Emergency (ER) | payer BC, SELFPAY ==
--- NOTE | ~2022-10-21 | XR_ITS ---
EXAMINATION: XR chest 2V DATE: 10/21/2022 12:17 INDICATION: Shortness of breath and fever TECHNIQUE: PA and lateral views of the chest were obtained. COMPARISON: Chest radiograph dated 07/13/2022 FINDINGS: New large retrocardiac region of consolidation at the posterior left lower lobe with silhouetting of the posterior diaphragm The cardiomediastinal silhouette is normal. Visualized bones and soft tissues are unremarkable most suspicious for pneumonia. Right lung is clear. No pulmonary edema, pleural eff usion or pneumothorax. Heart size is normal. Lower cervical instrumented anterior spinal fusion with anterior plate and screw fixation likely at C5-C7. IMPRESSION: 1. Left lower lobe consolidation most concerning for pneumonia with differential including less likel y atelectasis.. Reviewed, dictated and finalized at location A. IMPRESSION: 1. Left lower lobe consolidation most concerning for pneumonia with differentia l including less likely atelectasis..
--- NOTE | 2022-10-21 11:53 | ED.URI ---
HPI - URI/Sore Throat General Chief Complaint: Upper Respiratory Infection Stated Complaint: Cough/Fever/Bodyaches Time Seen by Provider: 10/21/22 11:53 Source: patient Mode of arrival: ambulatory Limitations: no limitations History of Present Illness HPI Narrative: Irma is a 52-year-old female patient presenting to the clinic today with complaints of fever, cough, chills, nasal congestion, shortness of breath, nonproductive cough, and body aches x 4 days. She reports she had influenza A back in June and not develop pneumonia. She denies a sore throat. Does not know how high her fever was. Temperature was 38.1? C in the clinic today MD elicited complaint: fever, cough, rhinorrhea, nasal congestion and other (Body aches, chills) Related Data Home Medications Medication Instructions Recorded Confirmed gabapentin 600 mg tablet 600 mg PO QID 08/20/22 09/14/22 nortriptyline 25 mg capsule 25 mg PO DAILY 08/20/22 09/14/22 oxybutynin chloride 5 mg mg PO 10/21/22 tablet,extended release 24 hr Allergies Allergy/AdvReac Type Severity Reaction Status Date / Time vancomycin Allergy Unknown Unknown Verified 10/21/22 12:12 Review of Systems Review of Systems: Pertinent positives per HPI. Patient denies any rash, headache, visual changes, dizziness, chest pain, palpitations, nausea, vomiting, diarrhea, constipation, abdominal pain, or any urinary issues. [facility] Past Medical History Medical History Anxiety Chronic neck pain GERD (gastroesophageal reflux disease) Paresthesias Pulmonary nodule Surgical History Surgical History H/O neck surgery History of arthroscopy of right shoulder Family History Family History Sibling Family history of suicide Social History Social History Smoking status: Never smoker Second hand tobacco smoke exposure: Yes Alcohol intake: current Alcohol use details: social Substance use: never Substance use type: does not use Living arrangements: with family Occupation/Education: occupation Gender identity (if verbalized by the patient): Female Sexual Orientation (if Verbalized by the Patient): Straight or Heterosexual Spiritual care concerns: No Comments At the time of my signature, I reviewed and agree with the nursing past medical, surgical, social, and family history. There is no relevant family history pertinent to the patient complaint. Exam Narrative: General: Well-developed, well nourished, in no apparent distress Head: Normocephalic, atraumatic Eyes: Pupils equally round and reactive to light bilaterally, EOM intact, sclera and conjunctive clear, no discharge, lids normal Ears: TMs intact and dull, ear canals clear, no drainage, grossly hearing normal. Nose: Nares patent, clear nasal discharge, no inflammation, no sinus tenderness. Mouth: Oral pharynx without lesions or masses, good dentition, MMM. Postnasal drip Neck: Supple, trachea midline, no enlargement of anterior or posterior cervical nodes, no thyroid masses or goiter palpable. Cardio: Regular rate and rhythm, s1 and s2 normal, no murmur appreciated. Resp: Diminished breath sounds in the lower posterior lung haile, no rhonchi, rales, wheezing or rubs Course Course Emergency Course: Portions of this record may have been created with voice recognition software. Level of Care: Express Care Visit Vital Signs Vital signs: Vital Signs Temperature 38.1 C H 10/21/22 12:00 Pulse Rate 99 10/21/22 12:00 Respiratory Rate 16 10/21/22 12:00 Blood Pressure 143/82 H 10/21/22 12:00 Pulse Oximetry 95 10/21/22 12:00 Oxygen Delivery Room Air 10/21/22 12:00 Temperature 38.1 C H 10/21/22 12:00 Pulse Rate 99 10/21/22 12:00 Respirat
[2022-10-21 12:00] VITALS: BP 143/82; PULSE 99; RESP 16; TEMP 38.1; O2SAT 95
== END 2022-10-21 12:34 | disposition home or self-care (01) ==
PROVIDERS: Emergency Provider Nurse Practitioner Family; PCP Family Medicine
DX: J18.9 Pneumonia, unspecified organism (principal); Z20.822 Contact with and (suspected) exposure to COVID-19
CPT/HCPCS: 71046; 87426; 87804; 99213; C9803; G0463

== ENCOUNTER 2022-11-02 10:54 | Outpatient (CLI) | payer BC, SELFPAY ==
--- NOTE | ~2022-11-02 | XR_ITS ---
Clinical Indication: Pneumonia PA and lateral views of the chest: Comparison: 10/21/2022 Findings: There is left basilar airspace disease, compatible with pneumonia. Right lung is clear.. C ardiomediastinal silhouette is within normal limits. Bones and soft tissues are unremarkable. Impression: Left lower lobe pneumonia. Reviewed, dictated and finalized at location . Impression: Left lower lobe pneumonia.
== END 2022-11-02 10:55 | disposition home or self-care (01) ==
PROVIDERS: PCP Family Medicine; Visit Provider Physician Assistant
DX: J18.9 Pneumonia, unspecified organism (principal)
CPT/HCPCS: 71046

== ENCOUNTER 2022-11-05 05:49 | Observation (INO) | payer BC, SELFPAY ==
[2022-11-05] VITALS (11 sets, daily range): BP systolic 146–162; BP diastolic 82–105; PULSE 77–100; RESP 14–18; TEMP 36.4–37.1; O2SAT 95–100; BMI 38.5
--- NOTE | ~2022-11-05 | XR_ITS ---
EXAMINATION: XR barium swallow modified DATE: 11/06/2022 10:15 INDICATION: Dysphagia TECHNIQUE: Modified barium esophagram was performed by myself who administered fluoroscopy, in conju nction with speech pathologist who administered barium in varying consistencies as per speech patholo gist documentation. This was recorded on tape. A single fluoroscopic spot image was recorded. Fluoros copy exposure time was 2.7 minutes. The DAP for this procedure was 2.426 Gycm2. FINDINGS: Patient had multiple episodes of severe sustained coughing without any evidence of abnormal ity on modified esophagram. Oral stage: Adequate function. Pharyngeal phase: Adequate function. Laryngeal penetration: None. Aspiration: None. Laryngeal sensitivity: Not applicable. IMPRESSION: Multiple episodes of severe sustained coughing without evidence of abnormality on modifie d esophagram. Please refer to speech pathologist findings and specific feeding recommendations. Reviewed, dictated and finalized at location A. IMPRESSION: Multiple episodes of severe sustained coughing without evidence of abnormality on modified esophagram. Please refer to speech pathologist findings and specific feeding recommendations.
--- NOTE | ~2022-11-05 | CT_ITS ---
EXAMINATION: CTA chest PE protocol DATE: 11/05/2022 08:54 INDICATION: Shortness of breath TECHNIQUE: Computed tomography angiography (CTA) of the chest was performed with 100 mL Omnipaque-350 intravenous contrast timed to evaluate the pulmonary arteries. Coronal maximum intensity projection 3D-reconstructions were created by the technologist. The dose-length product (DLP) was 742.83 mGy-cm. Automated exposure control and iterative reconstruction technique were employed. COMPARISON: 12/23/2020 FINDINGS: The pulmonary arteries are well-opacified. There are pulmonary emboli in the left upper and lower lobes. There are airspace opacities in the lower lobes, left greater than right. No pleural ef fusion or pneumothorax. There is mild bilateral hilar lymphadenopathy, likely reactive. The heart siz e is normal. There are changes of anterior fusion procedure in the lower cervical spine. IMPRESSION: 1. Acute pulmonary emboli in the left upper and lower lobes. 2. Airspace opacities of the lower lobes, left greater than right, consistent with pneumonia. These findings were discussed with Dr. Rosalio Joseph MD in the Emergency Department at 0915 hour s on 11/05/2022. Reviewed, dictated and finalized at location A. IMPRESSION: 1. Acute pulmonary emboli in the left upper and lower lobes. 2. Airspace opacities of the lower lobes, left greater than right, consistent w ith pneumonia. These findings were discussed with Dr. Rosalio Joseph MD in the Emergency D epartment at 0915 hours on 11/05/2022.
--- NOTE | ~2022-11-05 | XR_ITS ---
EXAMINATION: XR chest 2V DATE: 11/08/2022 08:37 INDICATION: Pneumonia TECHNIQUE: PA and lateral views of the chest are obtained. COMPARISON: 11/05/2022 FINDINGS: Bibasilar airspace opacities persist with slight improvement No pleural effusion or pneumot horax. The cardiomediastinal silhouette is normal. There is mild thoracic spondylosis. Changes of ant erior fusion procedure are noted in the lower cervical spine. IMPRESSION: 1. Bibasilar airspace opacities with slight improvement, consistent with pneumonia. Reviewed, dictated and finalized at location L. IMPRESSION: 1. Bibasilar airspace opacities with slight improvement, consistent with pneumo clark.
--- NOTE | ~2022-11-05 | XR_ITS ---
EXAMINATION: XR chest 2V DATE: 11/05/2022 06:37 INDICATION: Left-sided chest pain TECHNIQUE: PA and lateral views of the chest are obtained. COMPARISON: 11/02/2022 FINDINGS: There are airspace opacities of the lower lobes, left greater than right. No pleural effusi on or pneumothorax. The cardiomediastinal silhouette is normal. There is mild thoracic spondylosis. C hanges of anterior fusion procedure are noted in the lower cervical spine. IMPRESSION: 1. Airspace opacities of the lower lobes, left greater than right, consistent with pneumonia. Reviewed, dictated and finalized at location A. IMPRESSION: 1. Airspace opacities of the lower lobes, left greater than right, consistent w ith pneumonia.
--- NOTE | ~2022-11-05 | US_ITS ---
EXAMINATION: US venous doppler [facility] DATE: 11/05/2022 11:18 INDICATION: Chest pain, known pulmonary embolus TECHNIQUE: Alejandra scale images without and with compression and Doppler images of the bilateral lower e xtremity veins were obtained. COMPARISON: None FINDINGS: The right common femoral vein, profunda femoral vein, femoral vein, popliteal vein, peroneal trunk, p osterior tibial veins, and greater saphenous vein are patent. The left common femoral vein, profunda femoral vein, femoral vein, popliteal vein, peroneal trunk, po sterior tibial veins, and greater saphenous vein are patent. IMPRESSION: 1. Patent bilateral lower extremity veins. No evidence of deep venous thrombosis. Reviewed, dictated and finalized at location A. IMPRESSION: 1. Patent bilateral lower extremity veins. No evidence of deep venous thrombosi s.
--- NOTE | 2022-11-05 08:16 | ECG_ITS ---
Measurements Intervals [place] Rate: 85 P: 54 NH: 158 QRS: 25 QRSD: 77 T: 46 QT: 365 QTc: 435 Interpretive Statements SINUS RHYTHM WITHIN NORMAL LIMITS COMPARED TO ECG 03/09/2021 12:10:24 NO SIGNIFICANT CHANGES Electronically Signed On 11-06-2022 7:36:45 CDT by Tu Matamoros M.D.
[2022-11-05] MEDS: MORPHINE SULFATE (*CRX) 4 MG/ML INJ IV PUSH (08:19)
[2022-11-05 08:21] LABS: Basophils Percent Auto 0.4 % (0.2-1.2); Eosinophils Percent Auto 0.1 % (0-4.4); Hematocrit 40.1 % (37.0-47.0); Hemoglobin 12.2 g/dL (12.0-15.0); Immature Granulocyte Absolute 0.18 K/mm3 (0.00-0.031); Immature Granulocyte Percent A 2.2 % (0-0.5); Lymphocytes Absolute Auto 1.42 K/mm3 (0.9-3.2); Lymphocytes Percent Auto 17.6 % (18.3-44.2); Mean Corpuscular HGB Conc 30.4 g/dl (32-36); Mean Corpuscular Hemoglobin 28.8 pg (26-34); Mean Corpuscular Volume 94.6 fl (80-100); Mean Platelet Volume 9.6 fl (7.4-10.4); Monocytes Absolute Auto 0.4 K/mm3 (0.1-0.6); Monocytes Percent Auto 4.5 % (2.6-8.5); Neutrophils Absolute Auto 6.1 K/mm3 (1.3-6.7); Neutrophils Percent Auto 75.2 % (45.5-73.1); Platelet Count Result 332 k/mm3 (150-375); Red Blood Count 4.24 M/mm3 (4.2-5.4); Red Cell Distribution Width 14.1 % (11.5-14.5); White Blood Count 8.1 K/mm3 (4.5-10.0)
[2022-11-05 08:33] LABS: Prothrombin Time 13.1 Seconds (11.1-14.7)
[2022-11-05 08:34] LABS: Alanine Aminotransferase 31 U/L (6-35); Albumin Level 4.3 g/dL (3.5-5.1); Alkaline Phosphatase 93 U/L (38-126); Anion Gap 5 mmol/L (8-16); Aspartate Amino Transferase 27 U/L (14-36); Bilirubin,Total 0.4 mg/dL (0.2-1.3); Blood Urea Nitrogen 15 mg/dL (7-17); Calcium 9.3 mg/dL (8.4-10.2); Carbon Dioxide 31 mmol/L (22-30); Chloride 107 mmol/L (98-107); Estimated CRCL calculation 113 ml/min; Estimated Glomerular Filt Rate > 60; Glucose 96 mg/dL (65-110); Partial Thromboplastin Time 28.4 SECONDS (22.3-36.8); Potassium 4.3 mmol/L (3.4-5.0); Sodium 143 mmol/L (137-145)
--- NOTE | 2022-11-05 08:34 | ED.SOB ---
HPI - SOB/Dyspnea General Chief Complaint: Shortness of Breath/Dyspnea Stated Complaint: shortness of breath dx with pneumonia Time Seen by Provider: 11/05/22 07:45 History of Present Illness HPI Narrative: Patient is a 52-year-old female who presents ER with chest wall pain with deep breath. Began this morning. Reports that she has been battling pneumonia over the last month. She is on her second dose of antibiotics. She has had a cough. No fevers or chills or sweats. She had not been having pain with cough. No hemoptysis. No leg swelling. No fevers or chills or sweats. She was instructed to come to the ER if anything changed with her respirations due to failure of outpatient antibiotics. Patient is on estrogen. Patient was initially on a Z-Benny and now she is on Augmentin. Related Data Home Medications Medication Instructions Recorded Confirmed gabapentin 600 mg tablet 600 mg PO QID 08/20/22 11/03/22 nortriptyline 25 mg capsule 25 mg PO DAILY 08/20/22 11/03/22 oxybutynin chloride 5 mg mg PO 10/21/22 11/03/22 tablet,extended release 24 hr Allergies Allergy/AdvReac Type Severity Reaction Status Date / Time vancomycin Allergy Unknown Unknown Verified 11/05/22 05:51 Review of Systems Review of Systems: All systems reviewed & are unremarkable except as noted in HPI and below Constitutional: Constitutional: Denies chills, Denies fatigue and Denies fever(s) ENT: Denies nasal congestion and Denies sore throat Cardiovascular: Cardiovascular: Denies chest pain, Denies rapid heart rate and Denies radiating jaw, neck or arm pain Respiratory: Respiratory: Reports cough, Reports dyspnea and Denies wheezing Gastrointestinal: Gastrointestinal: Denies abdominal pain, Denies nausea and Denies vomiting Integumentary/Breasts: Skin/Breast: Denies erythema and Denies rash PMF Past Medical History Medical History (Updated 11/05/22 @ 13:43 by Rosalio Joseph MD) Anxiety Chronic neck pain Gastroesophageal reflux Obstructive sleep apnea Pulmonary nodule Surgical History Surgical History (Updated 11/05/22 @ 12:48 by Fani Cuadra PA-C) History of arthroscopy of right shoulder History of bilateral breast reduction surgery History of carpal tunnel release History of cervical spinal surgery History of section History of hysterectomy Family History Family History Sibling Family history of suicide Social History Social History (Updated 11/05/22 @ 12:49 by Fani Cuadra PA-C) Social History: Surrogate medical decision maker: Tony Conklin (son) or Renzo Urbina (spouse). Code status: Full code. Smoking status: Never smoker Second hand tobacco smoke exposure: Yes Alcohol intake: current Alcohol use details: Social alcohol use in moderation. Substance use: current Substance use type: marijuana Last use: 09/2022 Lack of Transportation: No Lack of Food: Never True Current Housing: I Have Housing Concerned About Future Housing: No Difficulty Paying Gas/Electric Bills: No Difficulty Paying for Meds: No Currently Unemployed: No Education: High School Diploma/GED Difficulty w/ Childcare or Family Care: No Living arrangements: with family Occupation/Education: occupation Spiritual care concerns: No Exam Narrative: GENERAL: Well-appearing, well-nourished, and in no acute distress. HEAD: Normocephalic, atraumati ENT: Mucous membranes moist. CHEST: Clear to auscultation. No respiratory distress. Tender palpation left posterior chest wall just posterior to the mid axillary line. HEART: Regular rate and rhythm. Normal peripheral pulses. ABDOMEN: Soft, nontender, nondistended. EXTREMITIES: Normal range of motion. No edema. SKIN: Warm, dry, no rash. NEURO: Alert and oriented x3. PSYCH: Normal mood and affect. Course Course Emergency Course: Patient resting comfortably. Informe
[2022-11-05] MEDS: ENOXAPARIN 120 MG/0.8 ML SYRINGE 119 MG SUB-Q (10:12)
--- NOTE | 2022-11-05 11:39 | PC.NURSE ---
This patient, Irma Urbina, was admitted to Medical Room 258-01. Patient/family oriented to hospital policies and general routines including ID bracelet, bed and alarms, visiting hours, pain management, procedures, bathroom and other care routines, personal items, smoking policy, room service/diet, and visiting hours. Information on how to activate the Rapid Response Team has been discussed. Patient/Family are encouraged to report perceived risks to care and to ask questions if they do not understand what they are told or what they should do.
--- NOTE | 2022-11-05 12:45 | PM.IMHP ---
H&P: HPI History of Present Illness Date/Time: 11/05/22 12:45 Chief Complaint: Chest pain and shortness of breath. Narrative: This is a 52-year-old female with history of mild restrictive lung disease on pulmonary function tests in May 2019, anxiety, and GERD who presented to the emergency department via private vehicle from home for evaluation of left-sided chest pain shortness a breath. Patient provides the following history. She was diagnosed with pneumonia on 10/21/2022 for which she was given a Z-Benny and a 7 day course of Augmentin. She was seen in follow-up at her doctor's office a few days thereafter at which time she was still complaining of poor appetite, cough, headache, and shortness of breath. She was instructed to finish the Z-Benny and her Augmentin was extended to a total of 10 days. Initially her symptoms did improve however about a week ago she once again started to feel bad with increasing shortness of breath, fatigue, and a hacking, nonproductive cough. She had a follow-up appoint with her doctor on 11/03/2022 after chest x-ray done the day before showed persistent left lower lobe pneumonia. She was started on levofloxacin for 10 days and was also given a prescription for a Medrol Dosepak of which he states compliance. Overnight she developed a sharp stabbing pain in the left mid back which has been worse with cough and more so deep inspiration and she decided to come to the ER for evaluation. She was afebrile on arrival and has not had a fever for couple of weeks. Her remaining vital signs have been stable though blood pressures have been a bit elevated. CTA of the chest showed acute pulmonary emboli in the left upper and lower lobes and airspace opacities of the lower lobes, left greater than right, consistent with pneumonia. In the ED she was given a therapeutic dose of enoxaparin and she is being admitted in this setting. At the time my evaluation she has no specific complaints aside from those as listed above. She denies personal and family history of blood clots. She has been on estradiol for nearly a year due to menopausal symptoms. No known history of malignancy. Weight has remained stable. Of note the patient has seen pulmonology in the past and was diagnosed with mild restrictive respiratory disease on pulmonary function test on 06/12/2019. She is a never smoker however worked at a [employer] and reports significant secondhand smoke exposure. She was previously on Symbicort but no longer. Additionally she had a basic nocturnal polysomnogram which showed evidence of mild sleep apnea syndrome. It does not sound as though she has had a formal outpatient polysomnogram. Review of Systems Review of Systems: Twelve systems were reviewed. She had fevers when she was initially diagnosed with the pneumonia but that has since cleared. No sore throat. She denies syncope and near syncope. Appetite has been okay. No nausea or vomiting. She did have diarrhea earlier on her illness but that has since resolved. She denies concerns for aspiration though she does endorse coughing frequently after eating and drinking, especially cold items. She denies sick contacts. No recent travel. She does have a water leak at her house and is concerned for possible mold or mildew but she has not seen evidence of such. Except as documented, all other systems were reviewed and are negative. [facility] Past Medical History Medical History (Updated 11/05/22 @ 20:05 by Fani Cuadra PA-C) Anxiety Chronic neck pain Gastroesophageal reflux Pulmonary nodule Surgical History Surgical History (Updated 11/05/22 @ 20:21 by Fani Cuadra PA-C) History of arthroscopy of right shoulder History of bilateral breast reduction surgery History of bunionectomy of left great toe History of carpal tunnel release History of cervical spinal surgery History of section History of hysterectomy Family History Family History (Reviewed 11/05/22 @ 20:01 by Fani Maharaj
[2022-11-05 14:02] LABS: SARS-CoV-2 RNA PCR Negative (Negative)
[2022-11-05] MEDS: MORPHINE SULFATE (*CRX) 2 MG/ML INJ IV PUSH (14:57)
[2022-11-05] MEDS: guaiFENesin/DEXTROMETHORPHAN 10 ML UDC 5 ML PO ×2 (17:40→21:59)
--- NOTE | 2022-11-05 18:04 | PC.NURSE ---
Patient unable to confirm medications and does not have a current list. Spoke to pharmacist from preferred pharmacy.
--- NOTE | 2022-11-05 19:53 | PC.NURSE ---
Patient made multiple complaints regarding plan of care. Patient is concerned regarding delay in the administration of antibiotics. Patient stated, I have been sick for over a month and can't keep waiting. RN explained to patient about pending MRSA and sputum culture to help specify treatment used and how it takes time for testing to result (typically a day). Patient then made remarks regarding how the color of her skin increases the risk of her not getting adequate treatment and that they will leave AMA if they have to. RNs stated that it is within the patient's right to leave and that medical records will not be sent with the patient and that they will need to be acquired through medical records independently. Provider made aware of patient's concern regarding antibiotics. Orders placed by provider.
[2022-11-05] MEDS: ENOXAPARIN 120 MG/0.8 ML SYRINGE SUB-Q (20:26)
[2022-11-05] MEDS: HYDROcodone/acetaminophen (*CRX) 5-325 MG TABLET 1 TAB PO (21:00)
[2022-11-05] MEDS: NORTRIPTYLINE HCL 25 MG CAPSULE PO (21:59)
[2022-11-05] MEDS: GABAPENTIN 300 MG CAPSULE 600 MG PO (21:59)
[2022-11-05] MEDS: MELATONIN 5 MG TABLET PO (21:59)
[2022-11-06] VITALS (9 sets, daily range): BP systolic 124–145; BP diastolic 72–84; PULSE 79–94; RESP 18–20; TEMP 36.4; O2SAT 96–99
[2022-11-06 05:24] LABS: Hematocrit 36.1 % (37.0-47.0); Hemoglobin 11.1 g/dL (12.0-15.0); Mean Corpuscular HGB Conc 30.7 g/dl (32-36); Mean Corpuscular Hemoglobin 28.2 pg (26-34); Mean Corpuscular Volume 91.6 fl (80-100); Mean Platelet Volume 9.5 fl (7.4-10.4); Platelet Count Result 272 k/mm3 (150-375); Red Blood Count 3.94 M/mm3 (4.2-5.4); Red Cell Distribution Width 13.9 % (11.5-14.5); White Blood Count 9.1 K/mm3 (4.5-10.0)
[2022-11-06 05:31] LABS: Anion Gap 4 mmol/L (8-16); Blood Urea Nitrogen 16 mg/dL (7-17); CRP 0.9 mg/dL (<1.0); Calcium 8.5 mg/dL (8.4-10.2); Carbon Dioxide 34 mmol/L (22-30); Chloride 103 mmol/L (98-107); Estimated CRCL calculation 115 ml/min; Estimated Glomerular Filt Rate > 60; Glucose 98 mg/dL (65-110); Magnesium 2.1 mg/dL (1.6-2.3); Potassium 3.6 mmol/L (3.4-5.0); Sodium 141 mmol/L (137-145)
[2022-11-06] MEDS: ENOXAPARIN 120 MG/0.8 ML SYRINGE SUB-Q ×2 (09:10→21:22)
[2022-11-06] MEDS: GABAPENTIN 300 MG CAPSULE 600 MG PO ×4 (09:26→21:22)
[2022-11-06] MEDS: MELOXICAM 7.5 MG TABLET 15 MG PO (09:26)
[2022-11-06] MEDS: PANTOPRAZOLE 40 MG TABLET BY MOUTH (09:27)
[2022-11-06] MEDS: oxyBUTYnin CHLORIDE XL 5 MG TAB.ER.24 PO (09:27)
[2022-11-06] MEDS: SERTRALINE HCL 25 MG TABLET 75 MG PO (09:28)
[2022-11-06] MEDS: valACYclovir HCL 500 MG TABLET PO (09:28)
--- NOTE | 2022-11-06 10:22 | PCSTNOTE ---
Please refer to the Modified Barium Swallow Evaluation in the EMR.
[2022-11-06] MEDS: HYDROcodone/acetaminophen (*CRX) 5-325 MG TABLET 1 TAB PO ×2 (11:11→21:22)
--- NOTE | 2022-11-06 11:32 | PM.CNPUL ---
Assessment and Plan Assessment and plan (1) Pulmonary embolism: Code(s): I26.99 - Other pulmonary embolism without acute cor pulmonale Status: Acute Assessment and Plan: this 52-year-old female with history of shortness of breath of several weeks to duration, abnormal chest x-ray showing left lower lobe infiltrate approximately 3 weeks ago presented with 1 day history of left pleuritic chest pain. Diagnostic studies have shown left pulmonary embolism, with the thrombi load being relatively small. Patient has been hemodynamically stable. In addition the chest CT showed left lower lobe infiltrate which is probably the same infiltrate shown on a chest x-ray done 3 weeks ago. The patient currently has been on antibiotics for possible pneumonia in addition to low-molecular weight heparin for acute pulmonary embolism. She has no leukocytosis and no symptoms suggestive of lower respiratory tract infection. It is unclear whether the left lower lobe infiltrate for seen on chest x-ray 3 weeks ago was related to pneumonia or to pulmonary embolism. Patient had been on estrogens for post menopausal symptoms, which probably explains current episode of thromboembolic disease. patient has no other risk factors for thromboembolic disease. DVT showed no lower extremity thrombi. Plan: continue with subcu enoxaparin twice daily as ordered. Will switch patient to a direct anticoagulant like apixaban prior to discharge home. in view of prominent pulmonary arteries on chest CT I would get echocardiogram to exclude elevated pulmonary artery systolic pressure. pulmonary hypertension may explain the decreased lung diffusion capacity noted on recent pulmonary function testing. As this episode of pulmonary embolism is most likely provoked and related to estrogen use, patient will require anticoagulation treatment for approximately 3 months. I discussed the issue of increased risk of estrogens for DVT with patient. Patient is willing to discontinue estrogens and discus treatment of post menopausal symptoms with her public service director. (2) Chronic neck pain: Code(s): M54.2 - Cervicalgia; G89.29 - Other chronic pain Status: Acute (3) Restrictive lung disease: Code(s): J98.4 - Other disorders of lung Status: Acute (4) SORIN (obstructive sleep apnea): Code(s): G47.33 - Obstructive sleep apnea (adult) (pediatric) Status: Acute Assessment and Plan: As stated patient underwent sleep study in 2019 which showed mild obstructive sleep apnea patient has not been treated for it. Since has gained weight, she will need a repeat sleep study as an outpatient. (5) Pneumonia: Code(s): J18.9 - Pneumonia, unspecified organism Status: Acute (6) History of estrogen therapy: Code(s): Z92.23 - Personal history of estrogen therapy Status: Acute History of Present Illness History of Present Illness Consult date: 11/06/22 Chief complaint: Pulmonary Embolism, pneumonia Narrative: this 52-year-old female presented with 1 day history of left pleuritic chest pain. The patient was in her usual state of health until approximately last June when she was diagnosed with influenza. One month later the patient started to have shortness of breath primarily on exertion which was attributed to recent weight gain. Approximately 3 weeks ago the patient was evaluated for fever chills and coughing. She was evaluated in the emergency room and a chest x-ray showed left lower lobe infiltrate and possibly a small left effusion. The patient continued to have shortness of breath. She has received 2 courses of antibiotics for questionable pneumonia. Over the last month she has had shortness of breath with activities but very little cough and no wheezing. She had no history of lower extremity pain or edema. In the emergency room she was diagnosed with left lower lobe infiltrate and pulmonary embolism primarily in the l
[2022-11-06] MEDS: guaiFENesin/DEXTROMETHORPHAN 10 ML UDC 5 ML PO ×3 (12:25→21:22)
--- NOTE | 2022-11-06 14:01 | PM.IMPN ---
Progress Note: A&P Assessment and Plan (1) Pulmonary embolism on left: Code(s): I26.99 - Other pulmonary embolism without acute cor pulmonale Status: Acute Assessment and Plan: CTA chest shows acute pulmonary emboli in the left upper and lower lobes. Patient has been taking estradiol for menopause symptoms and this is a presumed provoked episode. Continue enoxaparin 1 milligram/kilogram b.i.d. subQ and transition to oral Eliquis or Xarelto prior to discharge. Care coordination to arteaga medication. Lower extremity venous Doppler ultrasounds were negative for DVT. Stop estradiol and the patient is agreeable to this. (2) Multifocal pneumonia: Code(s): J18.9 - Pneumonia, unspecified organism Status: Acute Assessment and Plan: CT of the chest shows persistent pneumonia of the bilateral lower lobes, left greater than right. She has thus far completed a course of azithromycin and Augmentin and was started on levofloxacin 500 mg one day prior to admission (2nd dose taken 11/05). continue Levaquin, increase dose to 750 mg p.o. Q 24 hours times 5-7 days. COVID swab was negative. Swallow study negative for dysphagia. urinary antigens pending. She has a history of MRSA following bunionectomy; MRSA pneumonia seems less likely and sputum culture and nasal MRSA swab pending. Pulmonology consulted and appreciate recommendations. Continue antitussives for cough. (3) Postmenopausal: Code(s): Z78.0 - Asymptomatic menopausal state Status: Chronic Assessment and Plan: Stop estradiol for now given pulmonary embolism. (4) Elevated blood pressure reading: Code(s): R03.0 - Elevated blood-pressure reading, without diagnosis of hypertension Status: Acute Assessment and Plan: Blood pressures have been intermittently elevated over the past year so, per report. BP 124/84 and HR 84. Continue to monitor closely and consider initiating antihypertensives if she remains elevated. Plan Code status: Full code Discharge disposition: Patient is from home and independent with ADLs. Time Spent With Patient Time with patient: 25 - 35 minutes Subjective Date/time seen: 11/06/22 14:01 She reports a persistent cough that is nonproductive and then feels short of breath following these coughing episodes. They are worse with taking deep breaths. She denies chest pain or palpitations. Review of Systems Review of Systems: All systems reviewed & are unremarkable except as noted in HPI and below Exam Narrative: General: A nontoxic-appearing female sitting up in bed in no distress. No acute distress. HEENT: Normocephalic, atraumatic. PERRL, EOMI. Sclera anicteric. Oral mucosa moist. Neck: Supple. No JVD or lymphadenopathy. Respiratory: Respirations are nonlabored and she is speaking in full sentences. Scattered rales at the left base. She has a frequent dry, barking cough. No wheezing. Cardiovascular: Regular rate and rhythm with S1-S2. No murmurs, gallops and rubs. Gastrointestinal: Abdomen is soft, nontender, and nondistended with positive bowel sounds. Skin: Warm and dry. No rash or lesions on limited exam. Extremities: No cyanosis, clubbing, or significant edema. Radial and pedal pulses intact. Grossly normal ROM. Neurological: Alert and oriented x3. clear speech Cranial nerves 2-12 are grossly intact. No gross focal deficits to casual conversation. Psychiatric: Pleasant and cooperative with normal mood and affect. Objective Data Vital Signs Vital Signs: Vital Signs - 24 hr 11/05/22 16:00 11/05/22 19:47 11/05/22 20:00 Temperature 97.6 F Pulse Rate 94 88 100 Respiratory Rate 17 Blood Pressure 153/90 H Pulse Oximetry 98 11/06/22 00:00 11/06/22 04:00 11/06/22 04:43 Temperature 97.6 F Pulse Rate 84 79 84 Respiratory Rate 18 Blood Pressure 124/84 Pulse Oximetry 96 11/06/22 08:00 Temperature Pu
[2022-11-06] MEDS: FLUTICASONE/SALMETEROL 115-21 MCG INHALER 1 PUFF 2 PUFF INHALATION (21:08)
[2022-11-06] MEDS: MELATONIN 5 MG TABLET PO (21:22)
[2022-11-06] MEDS: NORTRIPTYLINE HCL 25 MG CAPSULE PO (21:22)
[2022-11-07] VITALS (10 sets, daily range): BP systolic 114–135; BP diastolic 63–78; PULSE 50–89; RESP 17–20; TEMP 36.4–36.6; O2SAT 95–100
--- NOTE | 2022-11-07 | ECHO_ITS ---
Patient Info Name: Irma Urbina Age: 52 years : 1970 Gender: Female Ht: 70 in Wt: 268 lbs BSA: 2.50 m2 HR: 88 bpm BP: 138 / 72 mmHg Technical Quality: Fair Exam Date: 11/07/2022 2:45 PM Exam Location: [facility] Patient Status: Outpatient Admit Date: 11/05/2022 Staff Ordering Physician: Jose Guadalupe Cochran MD Basketball Referee: Clari Conklin RDCS Attending Provider: Mario Miranda MD Referring Physician: Sammie JOHNSON; Exam Type: CA echo dop color flow w con Study Info Indications - ELEVATED PAP Complete two-dimensional, color flow and Doppler transthoracic echocardiogram is performed with contrast to opacify the left ventricle and to improve the deliniation of the left ventricle endocardial borders. Contrast/Agitated Saline Contrast/Ag. Saline: Definity Amount: 3.00 ml Administered By: Clari Conklin RDCS Existing IV Access: Yes Summary 1. Definity contrast administered improved wall motion interpretation. 2. Left ventricular chamber dimension is normal. 3. Left ventricular systolic function is hyperdynamic, estimated at >70%. 4. The left ventricular diastolic function is abnormal. 5. E/e' 12 is mildly elevated. 6. No pulmonary hypertension, estimated pulmonary arterial systolic pressure is 25 mmHg. Left Ventricle E/e' 12 is mildly elevated. Definity contrast administered improved wall motion interpretation. Left ventricular chamber dimension is normal. Left ventricular systolic function is hyperdynamic, estimated at >70%. The left ventricular diastolic function is abnormal. Right Ventricle Right ventricular systolic function is normal and with normal TAPSE 2.7 cm. Right ventricular chamber dimension is normal. Left Atria Left atrial chamber dimension is normal. Right Atria Right atrial chamber dimension is normal. Aortic Valve The aortic valve is trileaflet. There is no aortic valve stenosis. There is no aortic valve regurgitation. Pulmonic Valve There is no pulmonic regurgitation. Mitral Valve There is no mitral valve stenosis. There is no mitral valve regurgitation. Tricuspid Valve There is no tricuspid valve regurgitation. No pulmonary hypertension, estimated pulmonary arterial systolic pressure is 25 mmHg. Pericardium/Pleural There is no pericardial effusion. Inferior Vena Cava Normal inferior vena cava with >50% collapse upon inspiration consistent with normal right atrial pressure, 5 mmHg. Aorta The aortic root size at the sinus of Valsalva is normal. Left Ventricular Outflow Tract Name Value Normal LVOT 2D LVOT Diameter 2.04 cm LVOT Doppler LVOT Peak Gradient 7 mmHg LVOT Mean Gradient 4 mmHg LVOT VTI 28.39 cm LVOT VTI/AV VTI Ratio 0.88 LVOT Stroke Volume 92.62 ml LVOT CO 7.13 l/min LVOT CI 2.85 L/min/m2 Pulmonic Valve
[2022-11-07] MEDS: ONDANSETRON INJ 4 MG/2 ML VIAL IV PUSH (00:38)
[2022-11-07 05:51] LABS: Hematocrit 36.2 % (37.0-47.0); Hemoglobin 11.1 g/dL (12.0-15.0); Mean Corpuscular HGB Conc 30.7 g/dl (32-36); Mean Corpuscular Hemoglobin 28.4 pg (26-34); Mean Corpuscular Volume 92.6 fl (80-100); Mean Platelet Volume 9.3 fl (7.4-10.4); Platelet Count Result 255 k/mm3 (150-375); Red Blood Count 3.91 M/mm3 (4.2-5.4); Red Cell Distribution Width 13.8 % (11.5-14.5); White Blood Count 8.2 K/mm3 (4.5-10.0)
[2022-11-07 06:04] LABS: Alanine Aminotransferase 26 U/L (6-35); Albumin Level 3.7 g/dL (3.5-5.1); Alkaline Phosphatase 80 U/L (38-126); Anion Gap 2 mmol/L (8-16); Aspartate Amino Transferase 23 U/L (14-36); Bilirubin,Total 0.5 mg/dL (0.2-1.3); Blood Urea Nitrogen 13 mg/dL (7-17); Calcium 8.9 mg/dL (8.4-10.2); Carbon Dioxide 35 mmol/L (22-30); Chloride 104 mmol/L (98-107); Estimated CRCL calculation 102 ml/min; Estimated Glomerular Filt Rate > 60; Glucose 103 mg/dL (65-110); Potassium 4.5 mmol/L (3.4-5.0); Sodium 141 mmol/L (137-145)
[2022-11-07] MEDS: ENOXAPARIN 120 MG/0.8 ML SYRINGE SUB-Q (08:36)
[2022-11-07] MEDS: GABAPENTIN 300 MG CAPSULE 600 MG PO ×4 (08:36→20:31)
[2022-11-07] MEDS: MELOXICAM 7.5 MG TABLET 15 MG PO (08:37)
[2022-11-07] MEDS: PANTOPRAZOLE 40 MG TABLET BY MOUTH (08:37)
[2022-11-07] MEDS: oxyBUTYnin CHLORIDE XL 5 MG TAB.ER.24 PO (08:37)
[2022-11-07] MEDS: SERTRALINE HCL 25 MG TABLET 75 MG PO (08:38)
[2022-11-07] MEDS: valACYclovir HCL 500 MG TABLET PO (08:38)
[2022-11-07] MEDS: HYDROcodone/acetaminophen (*CRX) 5-325 MG TABLET 1 TAB PO ×2 (08:44→17:02)
--- NOTE | 2022-11-07 08:47 | PM.PNPUL ---
Progress Note: A&P Assessment and Plan (1) Pulmonary embolism: Code(s): I26.99 - Other pulmonary embolism without acute cor pulmonale Status: Acute Assessment and Plan: this? 52-year-old female with history of shortness of breath of several weeks to duration, abnormal chest x-ray showing left lower lobe infiltrate approximately 3 weeks ago presented with 1 day history of left pleuritic? chest pain.? Diagnostic studies have shown left pulmonary embolism, with the thrombi load being relatively small.? Patient has been hemodynamically stable.? In addition the chest CT showed left lower lobe infiltrate which is probably the same infiltrate shown on a chest x-ray done 3 weeks ago.? The patient currently has been on antibiotics for possible pneumonia in addition to low-molecular weight heparin for acute pulmonary embolism.? She has no leukocytosis? and no symptoms suggestive of lower respiratory tract infection.? It is unclear whether the left lower lobe infiltrate seen on chest x-ray 3 weeks ago was related to pneumonia or pulmonary embolism.? Patient had been on estrogens for post menopausal? symptoms,? which? probably explains? current episode of thromboembolic disease. patient has no other risk factors for thromboembolic disease. DVT showed no lower extremity thrombi. over last 24 hours respiratory status has been stable. She remains on room air and on physical exam she has crackles at lung bases posteriorly. Plan: DC enoxaparin after morning dose, and switch patient to Eliquis 10 mg p.o. b.i.d. for 7 days, followed by Eliquis 5 mg p.o. b.i.d.. Start Eliquis in pm at the time enoxaparin would have been due. Continue with levofloxacin for now. repeat chest x-ray today. Await echocardiogram. anticipate DC patient home soon, most likely tomorrow. The patient will need to return to pulmonary clinic in approximately 1 month to document resolution of a left pneumonia and also schedule patient for a sleep study. Patient will discontinue estrogens. She will remain on Eliquis maintenance dose for approximately 3 months. (2) History of estrogen therapy: Code(s): Z92.23 - Personal history of estrogen therapy Status: Acute (3) Pneumonia: Code(s): J18.9 - Pneumonia, unspecified organism Status: Acute (4) Gastroesophageal reflux: Code(s): K21.9 - Gastro-esophageal reflux disease without esophagitis Status: Acute (5) SORIN (obstructive sleep apnea): Code(s): G47.33 - Obstructive sleep apnea (adult) (pediatric) Status: Acute Subjective Date/time seen: 11/07/22 08:47 Patient has had mild coughing. Remaining room air. No shortness of breath fever chills sputum production. Underwent video swallow study. Remains on enoxaparin subcu b.i.d. Review of Systems Review of Systems: All systems reviewed & are unremarkable except as noted in HPI and below ( HPI and below) Exam Narrative: GENERAL APPEARANCE: Well developed, well nourished, alert and cooperative, and appears to be in no acute distress SKIN: Inspection of the skin reveals no rashes, ulcerations or petechiae. HEENT: Sclerae anicteric and conjunctivae pink and moist. Extraocular movements were intact and pupils were equal, round, and reactive to light. The oral mucosa, hard and soft palate, tongue and posterior pharynx were normal. NECK: Supple. There was no thyroid enlargement, and no tenderness, or masses were felt. CHEST: Normal AP diameter and normal contour without any kyphoscoliosis. LUNGS: crackles at lung bases posteriorly no wheezing CARDIAC: There was a regular rate and rhythm without any murmurs, gallops, rubs. ABDOMEN: Soft and nontender with normal bowel sounds. There was no organomegaly. LYMPH NODES: No lymphadenopathy was appreciated in the neck. EXTREMITIES: No cyanosis, clubbing or edema. NEUROLOGIC: Alert and oriented x 3. Normal affect. Objective Data Vital Signs Vital Signs: Vital Signs - 24 hr 11/06/22
[2022-11-07] MEDS: FLUTICASONE/SALMETEROL 115-21 MCG INHALER 1 PUFF 2 PUFF INHALATION ×4 (09:59→21:02)
--- NOTE | 2022-11-07 14:51 | PM.IMPN ---
Progress Note: A&P Assessment and Plan (1) Pulmonary embolism on left: Code(s): I26.99 - Other pulmonary embolism without acute cor pulmonale Status: Acute Assessment and Plan: CTA chest shows acute pulmonary emboli in the left upper and lower lobes. Patient has been taking estradiol for menopause symptoms and this is a presumed provoked episode. Continue enoxaparin 1 milligram/kilogram b.i.d. subQ on admission. Transition to oral Eliquis tonight 10 mg PO BID x 7, then 5 mg PO BID x 3 months. Care coordination priced medication and reviewed medications. Lower extremity venous Doppler ultrasounds were negative for DVT. Stopped estradiol and the patient is agreeable to this. (2) Multifocal pneumonia: Code(s): J18.9 - Pneumonia, unspecified organism Status: Acute Assessment and Plan: CT of the chest shows persistent pneumonia of the bilateral lower lobes, left greater than right. She has thus far completed a course of azithromycin and Augmentin and was started on levofloxacin 500 mg one day prior to admission (2nd dose taken 11/05). continue Levaquin increased dose to 750 mg p.o. Q 24 hours times 5-7 days, started 11/06, transition to oral Levaquin in am. COVID swab was negative. Swallow study negative for dysphagia. urinary antigens pending. She has a history of MRSA following bunionectomy; MRSA pneumonia seems less likely and sputum culture and nasal MRSA swab negative. Pulmonology consulted and appreciate recommendations. Continue antitussives for cough. [place] PRN for pain. Add lidoderm 5% patch to left back. Avoid NSAIDs given she is on anticoagulation. Consider prednisone for possible pleurisy if pain persists or worsens. Procalcitonin and CRP not elevated on admission. Will repeat in am to ensure not worsening. (3) Postmenopausal: Code(s): Z78.0 - Asymptomatic menopausal state Status: Chronic Assessment and Plan: Stop estradiol for now given pulmonary embolism. (4) Elevated blood pressure reading: Code(s): R03.0 - Elevated blood-pressure reading, without diagnosis of hypertension Status: Acute Assessment and Plan: Blood pressures have been intermittently elevated over the past year so, per report. Blood pressures reviewed and stable BP 120-130s/70s. Continue to monitor closely and consider initiating antihypertensives if she remains elevated. Plan Code status: Full code Discharge disposition: Patient is from home and independent with ADLs. Time Spent With Patient Time: All questions answered to the best of my ability. Time with patient: 25 - 35 minutes Subjective Date/time seen: 11/07/22 14:51 Interval history: She reports feeling a little better today, but is still having left back pain that is worse with coughing and tender to touch. It is improved when lying flat. Her cough is still nonproductive. She is on room air but still feels out of breath with exertion. Echocardiogram pending. Review of Systems Review of Systems: All systems reviewed & are unremarkable except as noted in HPI and below Exam Narrative: General: Nontoxic appearing. Dangling. No acute distress. HEENT: Normocephalic, atraumatic. PERRL, EOMI. Sclera anicteric. Oral mucosa moist. Neck: Supple. No JVD or lymphadenopathy. Respiratory: Respirations are nonlabored and she is speaking in full sentences. Left lower lobe with fine crackles. She has a frequent dry, barking cough. No wheezing or rhonchi. Left lateral/posterior chest tender to palpation. No spasm or nodule noted. Cardiovascular: Regular rate and rhythm with S1-S2. No murmurs, gallops and rubs. Gastrointestinal: Abdomen is soft, nontender, and nondistended with positive bowel sounds. Skin: Warm and dry. No rash or lesions on limited exam. Extremities: No cyanosis, clubbing, or significant edema. Radial and pedal pulses intact. Grossly normal ROM. Neurol
[2022-11-07] MEDS: PERFLUTREN LIPID MICROSPHERES 1.5 ML VIAL DILUTED TO 10 ML TOTAL VOLUME IV PUSH (15:05)
[2022-11-07] MEDS: LIDOCAINE 5% PATCH 1 PATCH TRANSDERM (16:59)
--- NOTE | 2022-11-07 18:31 | PC.NURSE ---
On 11/07/22, the student, Marie Price RN LP, provided care and completed [facility] documentation on this patient. I have reviewed the student's documentation and agree with the findings.
[2022-11-07] MEDS: MELATONIN 5 MG TABLET PO (20:32)
[2022-11-07] MEDS: NORTRIPTYLINE HCL 25 MG CAPSULE PO (20:32)
[2022-11-07] MEDS: guaiFENesin/DEXTROMETHORPHAN 10 ML UDC 5 ML PO (20:32)
[2022-11-07] MEDS: APIXABAN 5 MG TABLET 10 MG PO (20:32)
[2022-11-08] MEDS: guaiFENesin/DEXTROMETHORPHAN 10 ML UDC 5 ML PO ×2 (04:47→12:58)
[2022-11-08 05:50] LABS: Hematocrit 36.9 % (37.0-47.0); Hemoglobin 11.2 g/dL (12.0-15.0); Mean Corpuscular HGB Conc 30.4 g/dl (32-36); Mean Corpuscular Hemoglobin 28.6 pg (26-34); Mean Corpuscular Volume 94.4 fl (80-100); Mean Platelet Volume 9.6 fl (7.4-10.4); Platelet Count Result 228 k/mm3 (150-375); Red Blood Count 3.91 M/mm3 (4.2-5.4); Red Cell Distribution Width 13.8 % (11.5-14.5); White Blood Count 7.1 K/mm3 (4.5-10.0)
[2022-11-08 05:52] VITALS: BP 147/74; PULSE 89; RESP 18; TEMP 36.5; O2SAT 100
[2022-11-08 06:06] LABS: Anion Gap 4 mmol/L (8-16); Blood Urea Nitrogen 15 mg/dL (7-17); CRP 2.1 mg/dL (<1.0); Calcium 8.6 mg/dL (8.4-10.2); Carbon Dioxide 31 mmol/L (22-30); Chloride 103 mmol/L (98-107); Estimated CRCL calculation 103 ml/min; Estimated Glomerular Filt Rate > 60; Glucose 145 mg/dL (65-110); Sodium 138 mmol/L (137-145)
[2022-11-08] MEDS: APIXABAN 5 MG TABLET 10 MG PO (08:25)
[2022-11-08] MEDS: GABAPENTIN 300 MG CAPSULE 600 MG PO ×2 (08:25→12:57)
[2022-11-08] MEDS: oxyBUTYnin CHLORIDE XL 5 MG TAB.ER.24 PO (08:26)
[2022-11-08] MEDS: PANTOPRAZOLE 40 MG TABLET BY MOUTH (08:26)
[2022-11-08] MEDS: SERTRALINE HCL 25 MG TABLET 75 MG PO (08:26)
[2022-11-08] MEDS: valACYclovir HCL 500 MG TABLET PO (08:26)
[2022-11-08] MEDS: levoFLOXacin 750 MG TABLET PO (08:26)
[2022-11-08] MEDS: FLUTICASONE/SALMETEROL 115-21 MCG INHALER 1 PUFF 2 PUFF INHALATION (09:01)
[2022-11-08 09:03] VITALS: O2SAT 96
--- NOTE | 2022-11-08 09:45 | PM.PNPUL ---
Progress Note: A&P Assessment and Plan (1) Pulmonary embolism: Code(s): I26.99 - Other pulmonary embolism without acute cor pulmonale Status: Acute Assessment and Plan: this? 52-year-old female with history of shortness of breath of several weeks to duration, abnormal chest x-ray showing left lower lobe infiltrate approximately 3 weeks ago presented with 1 day history of left pleuritic? chest pain.? Diagnostic studies have shown left pulmonary embolism, with the thrombi load being relatively small.? Patient has been hemodynamically stable.? In addition the chest CT showed left lower lobe infiltrate which is probably the same infiltrate shown on a chest x-ray done 3 weeks ago.? The patient currently has been on antibiotics for possible pneumonia in addition to low-molecular weight heparin for acute pulmonary embolism.? She has no leukocytosis? and no symptoms suggestive of lower respiratory tract infection.? It is unclear whether the left lower lobe infiltrate seen on chest x-ray 3 weeks ago was related to pneumonia or pulmonary embolism.? Patient had been on estrogens for post menopausal? symptoms,? which? probably explains? current episode of thromboembolic disease. patient has no other risk factors for thromboembolic disease. DVT showed no lower extremity thrombi. over last 24 hours respiratory status has been stable. She remains on room air and on physical exam she has crackles at lung bases posteriorly. basal crackles improved over the last 24 hours. Chest x-ray also showed partial clearing of left lower lobe infiltrate. Echocardiogram showed no evidence of elevated pulmonary artery systolic pressure. Ventricular diastolic dysfunction with borderline left atrial dimensions. Plan: okay to DC patient. she needs to complete Eliquis 10 mg b.i.d. for 7 days followed by Eliquis 5 mg p.o. b.i.d. for a total of 3 months. Patient will discontinue estrogens. I would recommend albuterol inhaler p.r.n. cough. May also consider Mucinex for cough p.r.n., No need to continue with ICS Laba inhaler. Consider continuing levofloxacin orally for another 4 days. patient needs to return to pulmonary clinic in about 1 month for follow-up. (2) History of estrogen therapy: Code(s): Z92.23 - Personal history of estrogen therapy Status: Acute (3) Pneumonia: Code(s): J18.9 - Pneumonia, unspecified organism Status: Acute (4) Gastroesophageal reflux: Code(s): K21.9 - Gastro-esophageal reflux disease without esophagitis Status: Acute (5) SORIN (obstructive sleep apnea): Code(s): G47.33 - Obstructive sleep apnea (adult) (pediatric) Status: Acute Subjective Date/time seen: 11/08/22 09:45 she has no new respiratory complaints. Overall doing better, still with mild cough but no wheezing or shortness of breath. Afebrile Review of Systems Review of Systems: All systems reviewed & are unremarkable except as noted in HPI and below ( HPI and below) Exam Narrative: GENERAL APPEARANCE: Well developed, well nourished, alert and cooperative, and appears to be in no acute distress SKIN: Inspection of the skin reveals no rashes, ulcerations or petechiae. HEENT: Sclerae anicteric and conjunctivae pink and moist. Extraocular movements were intact and pupils were equal, round, and reactive to light. The oral mucosa, hard and soft palate, tongue and posterior pharynx were normal. NECK: Supple. There was no thyroid enlargement, and no tenderness, or masses were felt. CHEST: Normal AP diameter and normal contour without any kyphoscoliosis. LUNGS: rare cough crackles at lung bases posteriorly no wheezing, improved since yesterday CARDIAC: There was a regular rate and rhythm without any murmurs, gallops, rubs. ABDOMEN: Soft and nontender with normal bowel sounds. There was no organomegaly. LYMPH NODES: No lymphadenopathy was appreciated in the neck. EXTREMITIES: No cyanosis, clubbing or edema. NEUROLOGIC: Aler
[2022-11-08] MEDS: LIDOCAINE 5% PATCH 1 PATCH TRANSDERM (11:19)
[2022-11-08] MEDS: HYDROcodone/acetaminophen (*CRX) 5-325 MG TABLET 1 TAB PO (11:21)
--- NOTE | 2022-11-08 11:33 | PM.DS ---
DS: Admitting Diagnosis Discharge Date 11/08/2022 Admitting Diagnosis Pulmonary embolism left upper and lower lobes Multifocal pneumonia Postmenopausal state on estrogen hormone replacement Elevated blood pressure reading without diagnosis of hypertension? DS: Discharge Diagnosis Discharge Diagnosis (1) Pulmonary embolism on left: Code(s): I26.99 - Other pulmonary embolism without acute cor pulmonale Status: Acute Assessment and Plan: CTA chest shows acute pulmonary emboli in the left upper and lower lobes. Patient has been taking estradiol for menopause symptoms and this is a presumed provoked episode. Initiated on therapeutic enoxaparin 1 milligram/kilogram b.i.d. subQ on admission. Transitioned to oral Eliquis 10 mg PO BID x 7, then 5 mg PO BID x 3 months on 11/07/22 Care coordination priced medication and reviewed with patient. Lower extremity venous Doppler ultrasounds negative for DVT. Stopped estradiol and the patient is agreeable to this. She reported taking OTC herbal supplement with multiple omega fatty acids and sea buckthorn. She was counseled increased risk of bleeding reported with sea buckthorn. (2) Multifocal pneumonia: Code(s): J18.9 - Pneumonia, unspecified organism Status: Acute Assessment and Plan: CT of the chest shows persistent pneumonia of the bilateral lower lobes, left greater than right. She has thus far completed a course of azithromycin and Augmentin and was started on levofloxacin 500 mg one day prior to admission (2nd dose taken 11/05). Levaquin dose increased dose to 750 mg p.o. Q 24 hours times 5-7 days, started 11/06, transition to oral Levaquin 11/08. COVID swab was negative. Swallow study negative for dysphagia. urinary antigens pending at discharge. She has a history of MRSA following bunionectomy; MRSA pneumonia seemed less likely and nasal MRSA swab negative. Pulmonology consulted and appreciate recommendations. Continue antitussives for cough. [place] PRN for pain. Added lidoderm 5% patch to left back with some improvement, as well as improvement with cough suppressant and treatment for pneumonia. Avoid NSAIDs given she is on anticoagulation. Procalcitonin and CRP not elevated on admission. Repeat CRP 2.0, procal 0.0. She reported improvement in respiratory symptoms. Will follow up with Pulmonology outpatient. (3) Postmenopausal: Code(s): Z78.0 - Asymptomatic menopausal state Status: Chronic Assessment and Plan: Stopped estradiol given pulmonary embolism. (4) Elevated blood pressure reading: Code(s): R03.0 - Elevated blood-pressure reading, without diagnosis of hypertension Status: Acute Assessment and Plan: Blood pressures have been intermittently elevated over the past year so, per report. Blood pressures reviewed and stable BP 120-140s/70-80s. Monitor outpatient and will defer to PCP to discuss and initiate antihypertensives if need. (5) Restrictive lung disease: Code(s): J98.4 - Other disorders of lung Status: Chronic Assessment and Plan: Per outpatient PFTs. PRN albuterol MDI and nebs. She will follow up with Pulmonology clinic outpatient. She is not a current smoker. DS: Summary Hospital Course Reason for hospitalization: chest pain and SOB Hospital Course: Patient is a 52-year-old female with mild restrictive lung disease on pulmonary function tests in May 2019, anxiety, and GERD who presented to the emergency department via private vehicle from home for evaluation of left-sided chest pain and shortness a breath. She was diagnosed with pneumonia on 10/21/2022 for which she was given a Z-Benny and a 7 day course of Augmentin. She was seen in follow-up at her doctor's office thereafter at which time she was still complaining of poor appetite, cough, headache, and shortness of breath. She was instructed to finish the Z-Benny and her Augmentin was extended to
[2022-11-09 00:08] LABS: Pneumococcal Antigen Urine Not Detected (Not Detected)
[2022-11-09 18:53] LABS: Mycoplasma IgM Antibody Titer 202 U/mL (<770)
[2022-11-10 03:24] LABS: Legionella pneumophila Ag Ur Not Detected (Not Detected)
== END 2022-11-08 01:10 | disposition home or self-care (01) ==
LOC: ANHED 08:01 → ANH2MED 11-07 09:42
PROVIDERS: Nurse Practitioner Family; Physician Assistant; Admitting Provider Internal Medicine; Emergency Provider Emergency Medicine; PCP Family Medicine; Visit Provider Internal Medicine
DX: I26.99 Other pulmonary embolism without acute cor pulmonale (principal); J18.9 Pneumonia, unspecified organism; G89.29 Other chronic pain; M54.2 Cervicalgia; Z78.0 Asymptomatic menopausal state; R03.0 Elevated blood-pressure reading, without diagnosis of hypertension; G47.33 Obstructive sleep apnea (adult) (pediatric); F41.9 Anxiety disorder, unspecified; Z20.822 Contact with and (suspected) exposure to COVID-19; K21.9 Gastro-esophageal reflux disease without esophagitis; R13.10 Dysphagia, unspecified; J98.4 Other disorders of lung; Z77.22 Contact with and (suspected) exposure to environmental tobacco smoke (acute) (chronic); Z92.23 Personal history of estrogen therapy; F10.90 Alcohol use, unspecified, uncomplicated; F12.90 Cannabis use, unspecified, uncomplicated; Z79.51 Long term (current) use of inhaled steroids; Z79.890 Hormone replacement therapy; Z79.899 Other long term (current) drug therapy
CPT/HCPCS: 36415; 71046; 71275; 80048; 80053; 83735; 84145; 85025; 85027; 85610; 85730; 86140; 86738; 87070; 87081; 87205; 87449; 87899; 92611; 93005; 93970; 94640; 96365; 96367; 96372; 96375; 96376; 99285; A9270; C8929; G0378; J0456; J0696; J1650; J1956; J2270; J2405; Q9957; Q9967; U0003; U0005

== ENCOUNTER 2022-11-30 10:36 | Outpatient (CLI) | payer BC, SELFPAY ==
--- NOTE | ~2022-11-30 | XR_ITS ---
AP view of the pelvis and AP and lateral views of the right hip Clinical history: Pain Findings: No acute fracture or dislocation is seen. Osseous alignment is anatomic. Bilateral hip and SI joint spaces are preserved. Soft tissues are unremarkable. Impression: No significant abnormality is seen. Reviewed, dictated and finalized at location . Impression: No significant abnormality is seen.
--- NOTE | ~2022-11-30 | XR_ITS ---
Lumbosacral Spine: AP, oblique, and lateral views Clinical History: Pain Findings: The normal lordotic curve is maintained. The vertebral bodies and posterior elements are i ntact. There is mild degenerative disc narrowing at L4-L5 and L5-S1. The remaining intervertebral dis c spaces are preserved. There is mild facet arthropathy from L3 through S1. The sacroiliac joints are normally outlined. Impression: Mild degenerative spondylosis, as above. Reviewed, dictated and finalized at location M. Impression: Mild degenerative spondylosis, as above.
--- NOTE | ~2022-11-30 | XR_ITS ---
Supine and upright views of the abdomen Clinical history: Flank pain Findings: Bowel gas pattern is nonspecific. No evidence for obstruction or free air. No abnormal mass lesion or calcification is seen. Osseous structures are intact. Impression: No significant abnormality is seen. Reviewed, dictated and finalized at [facility]. Impression: No significant abnormality is seen.
== END 2022-11-30 10:37 | disposition home or self-care (01) ==
PROVIDERS: PCP Family Medicine; Visit Provider Physician Assistant
DX: M54.50 Low back pain, unspecified (principal); M25.551 Pain in right hip; N39.0 Urinary tract infection, site not specified; M47.896 Other spondylosis, lumbar region
CPT/HCPCS: 72110; 73502; 74018

== ENCOUNTER → 2023-02-02 09:53 | Outpatient (CLI) | payer BC, SELFPAY ==
--- NOTE | ~2023-02-02 | MR_ITS ---
MRI of the lumbar spine Clinical History: Back pain Technique: Axial T2-weighted images, and sagittal T1-weighted, T2-weighted, and T2 fat-sat images wer e acquired. Findings: No acute fracture seen. Minimal grade 1 anterolisthesis of L4 over L5 noted. No suspicious bone marrow signal abnormality seen. At L1-L2, L2-L3, L3-L4, there is no disc bulge or herniation. There are mild to moderate facet joint degenerative changes at these levels. No spinal canal stenosis or neural foraminal narrowing at these levels. At L4-L5, there is mild degenerative disc change with minimal disc bulge and advanced facet arthropat hy. No central canal stenosis or neural foraminal narrowing. At L5-S1, there is mild diffuse disc bulge with mild to moderate facet arthropathy. No central canal stenosis. There is mild right neural foraminal narrowing. Left neural foramen preserved. Paravertebral soft tissues are unremarkable. Impression: Mild degenerative change, as above. Reviewed, dictated and finalized at location . Impression: Mild degenerative change, as above.
== END ==
PROVIDERS: PCP Physician Assistant; Visit Provider Nurse Practitioner Family
DX: M47.817 Spondylosis without myelopathy or radiculopathy, lumbosacral region (principal)
CPT/HCPCS: 72148

== ENCOUNTER 2023-10-20 13:46 | Outpatient (CLI) | payer OTHER, SELFPAY ==
--- NOTE | ~2023-10-20 | US_ITS ---
EXAMINATION: US venous doppler [facility] DATE: 10/20/2023 14:23 INDICATION: Lower limb pain TECHNIQUE: Grayscale ultrasound images without and with compression and Doppler ultrasound images of the bilateral lower extremity veins were obtained. COMPARISON: None. FINDINGS: The visualized portions of right common femoral vein, profunda (deep) femoral vein, femoral vein, pop liteal vein, posterior tibial veins, peroneal veins, gastrocnemius vein and greater saphenous vein ou tflow are patent. The visualized portions of left common femoral vein, profunda femoral vein, femoral vein, popliteal v ein, posterior tibial veins, peroneal veins, gastrocnemius vein and greater saphenous vein outflow ar e patent. IMPRESSION: 1. No deep venous thrombosis in either lower limb. Reviewed, dictated and finalized at location A.
== END 2023-10-20 13:47 ==
PROVIDERS: PCP Family Medicine; Visit Provider Physician Assistant Medical
DX: I82.409 Acute embolism and thrombosis of unspecified deep veins of unspecified lower extremity (principal); M79.662 Pain in left lower leg; M79.606 Pain in leg, unspecified
CPT/HCPCS: 93970

== ENCOUNTER 2024-01-17 12:33 | Outpatient (CLI) | payer MEDICARE, SELFPAY ==
--- NOTE | ~2024-01-17 | MM_ITS ---
EXAMINATION: MM screening [facility] w jayant HISTORY: Screening mammogram TECHNIQUE: Craniocaudal and mediolateral oblique 3-D tomosynthesis images were obtained and synthetic 2-D images were generated. CAD analysis was submitted and interpreted. COMPARISON: 04/18/2019, 05/25/2016 BREAST PARENCHYMAL COMPOSITION:Not Dense. There are scattered areas of fibroglandular density. FINDINGS: Extensive bilateral benign calcifications are present. No suspicious mass, calcification, o r architectural distortion are identified in either breast to suggest malignancy. There has been no s uspicious interval change. IMPRESSION: No mammographic evidence of malignancy. Recommend routine screening mammography in one year. BI-RADS Category 2: Benign finding(s). Reviewed, dictated and finalized at location .
== END 2024-01-17 12:34 ==
PROVIDERS: PCP Obstetrics & Gynecology; Visit Provider Family Medicine
DX: Z12.31 Encounter for screening mammogram for malignant neoplasm of breast (principal)
CPT/HCPCS: 77063; 77067

== ENCOUNTER 2024-08-24 02:08 | Emergency (ER) | payer MEDICARE, SELFPAY ==
--- NOTE | ~2024-08-24 | XR_ITS ---
EXAMINATION: XR chest 1V portable DATE: 08/24/2024 03:04 INDICATION: Cerebrovascular accident. TECHNIQUE: A single frontal view of the chest was obtained. COMPARISON: Chest 2 views 11/08/2022 FINDINGS: There are airspace opacities in left lower lung zone. No pleural effusion or pneumothorax. The heart size is normal. There are changes of anterior fusion procedure in cervical spine. IMPRESSION: 1. Airspace opacities in left lower lung zone, consistent with atelectasis versus pneumonia. Reviewed, dictated and finalized at location A. N SERVICES WORKER IMPRESSION: 1. Airspace opacities in left lower lung zone, consistent with atelectasis vers us pneumonia.
--- NOTE | ~2024-08-24 | CT_ITS ---
EXAMINATION: CT brain wo con DATE: 08/24/2024 02:28 INDICATION: Facial weakness. TECHNIQUE: Computed tomography (CT) of the head was performed without intravenous contrast. The mA wa s adjusted according to patient size. Iterative reconstruction technique was employed. The dose-lengt h product was 756.67 mGy-cm. COMPARISON: None FINDINGS: There is no intracranial hemorrhage, acute infarction, or abnormal intracranial mass lesion . The ventricles are normal in size. There is mild mucosal thickening in the paranasal sinuses. The o rbits are normal. The mastoid air cells are normal. IMPRESSION: 1. Normal brain. Reviewed, dictated and finalized at location A. DRAFTSMAN IMPRESSION: 1. Normal brain.
--- NOTE | ~2024-08-24 | CT_ITS ---
EXAMINATION: CTA brain carotid DATE: 08/24/2024 02:28 INDICATION: Facial weakness. TECHNIQUE: Computed tomographic angiography (CTA) of the head was performed with 100 mL Omnipaque-350 intravenous contrast. CTA of the neck was performed with intravenous contrast. Automated exposure co ntrol and iterative reconstruction technique were employed. The dose-length product was 1005.81 mGy-c m. Maximum intensity projection and volume rendered 3D-reconstructions were created by the [employer] st on a separate workstation. COMPARISON: Head CT 08/24/2024 FINDINGS: HEAD CTA: There is no intracranial hemorrhage, acute infarction, or abnormal intracranial mass lesion . The ventricles are normal in size. There is mild mucosal thickening in the paranasal sinuses. The o rbits are normal. The mastoid air cells are normal. Right vertebral artery is dominant. There is no s ignificant stenosis of basilar artery or the posterior cerebral arteries. The posterior communicating arteries are normal. There is no significant stenosis of the intracranial internal carotid arteries or anterior or middle cerebral arteries. Anterior communicating artery is normal. There is no aneurys m. NECK CTA: There are no pathologically enlarged lymph nodes. There is no significant stenosis of the v ertebral arteries. There is mild plaque in the proximal internal carotid arteries. There is 0% stenos is of the proximal right internal carotid artery relative to normal distal artery lumen diameter (SAE CET criteria). There is 0% stenosis of the proximal left internal carotid artery relative to normal d istal artery lumen diameter. There are changes of anterior fusion procedure from C5 to C7 with anteri or plate and screws. IMPRESSION: 1. Normal brain. 2. No aneurysm or significant intracranial arterial stenosis. 3. 0% stenosis of the proximal internal carotid arteries relative to normal distal artery lumen diame ters (NASCET criteria). Reviewed, dictated and finalized at location A. LESS TECHNICIAN IMPRESSION: 1. Normal brain. 2. No aneurysm or significant intracranial arterial stenosis. 3. 0% stenosis of the proximal internal carotid arteries relative to normal dis garth artery lumen diameters (NASCET criteria).
--- NOTE | 2024-08-24 02:14 | ECG_ITS ---
Test Date: 2024-08-24 02:30:14 Measurements Intervals [place] Rate: 82 P: 71 [place]: 160 QRS: 23 QRSD: 81 T: 45 QT: 355 QTc: 416 Interpretive Statements SINUS RHYTHM DELAYED PRECORDIAL R/S TRANSITION BASELINE ARTIFACT- I, III, AVR, AVL BORDERLINE ECG No previous ECG available for comparison Electronically Signed On 08-24-2024 06:35:04 [employer] by Miles Schreiber D.O.
--- OUTSIDE RECORDS SUMMARY | 2024-08-24 02:15 | XMS_ITS | Clinical Summary ---
Author Organization [facility] Address Formerly [facility] [place] [address] Care Team Providers Care Zanjero Name Role Phone None, Provider MD Primary Care Provider Unavaila ble Allergies Active Allergy Reactions Criticality Noted Date Comments Vancomycin Hives 11/23/2023 Medications HYDROcodone-abhishek taminophen (NORCO) 5-325 MG tabletIndicatio ns:Acute Pain < 3 Day Supply Take 1 tablet by mouth every 6 (six) hours as needed. Indications: Acute Pain < 3 Day Supply 10 tablet 11/23/2023 Active methylPREDNISol one BRUNILDA, (MEDROL DOSEPAK) 4 MG tablet 6 TABLETS ON DAY ONE, 5 TABLETS DAY TWO, 4 TABLETS DAY THREE, 3 TABLETS DAY FOUR, 2 TABLETS DAY FIVE, AND 1 TABLET DAY SIX 1 each 11/23/2023 Active Social History Tobacco Use Types Packs/Day Years Used Date Smoking Tobacco: Never Smokeless Tobacco: Never Tobacco Cessation:Counseling Given: Not Answered Alcohol Use Standard Drinks/Week Comments Yes 0 (1 standard drink = 0.6 oz pur e alcohol) occasionally Comments Unknown Sex and Gender Information Value Date Recorded Sex Assigned at Not on file Legal Sex Female 4:27 PM CDT Gender Identity Not on file Sexual Orientation Not on file Last Filed Vital Signs Vital Sign Reading Time Taken Comments Blood Pressure 136/90 11/23/2023 3:29 PM CDT Pulse 74 11/23/2023 3:29 PM CDT Temperature 36.7 C (98.1 F) 11/23/2023 12:15 PM CDT Respiratory Rate 16 11/23/2023 3:29 PM CDT Oxygen Saturation 100% 11/23/2023 3:29 PM CDT Inhaled Oxygen Concentration - - Weight 115.2 kg (254 lb) 11/23/2023 12:15 PM CDT Height 177.8 cm (5' 10 ) 11/23/2023 12:15 PM CDT Body Mass Index 36.45 11/23/2023 12:15 PM CDT Plan of Treatment Health Maintenance Due Date Last Done Comments Cervical Cancer Screening Pap Smear (Age 30 to 64) Every 3 Years 1970 Colorectal Cancer Screening Colonoscopy (10 Years) 1970 Annual Physical 1973 Hepatitis C 02/10/1988 Hepatitis B Vaccines (1 of 3 - 19+ 3-dose series) 1989 Cervical Cancer Screening Pap with HPV Testing (Age 30 to 64) Every 5 Years 02/10/2000 Cervical Cancer Screening with HPV 02/10/2000 Mammogram Screening 2010 Zoster Vaccines (2 of 2) 07/08/2021 05/13/2021 DTaP, Tdap and Td Vaccines (2 - Td or Tdap) 11/07/2022 11/07/2012 COVID-19 Vaccine ( season) 2024 05/21/2022, 06/21/2021, 11/18/2020, Additional history exists Influenza Adult (#1) 2024 05/21/2022, 05/13/2021, 06/07/2020, Additional history exists Meningococcal B Vaccine Aged Out No l onger eligible based on patient's age to complete this topic Meningococcal Vaccine Aged Out No ev tita eligible based on patient's age to complete this topic Pneumococcal Vaccine: Pediatrics (0 to 5 Years) and At-Risk Patients (6 to 64 Years) Aged Out No longer eligible based on patient's age to complete this topic RSV Immunizations Under 20 Months Aged Out No longer eligible based on patient's age to complete this topic Insurance * Guarantor: Irma Landa Account Type Relation to Patient Date of Phone Billing Address Personal/Family Self [address] [place] [address] [facility] Member Subscriber Plan / Payer (Ef fective 2023-Present) Name:Irma Landa Relation to Subscriber:Spouse Name:FLACO LANDA Date of :1970 Address: [address] [place] [address] Payer ID:[id number] (NAIC) Type:Not on file Address: [address] [address] [place] [address] MEDICAID A[employer] Care Teams Zanjero Relationship Specialty Start Date End Date None, Provider, MD PCP - General UNKNOWN PHYSICIAN SPECIALTY 11/23/23
--- OUTSIDE RECORDS SUMMARY | 2024-08-24 02:16 | XMS_ITS | Patient Health Summary ---
Author Organization [facility] [employer] Address [address] [place] [address] Care Team Providers Care Government Property Inspector Name Role Phone Rakan Patel MD Primary Care Provider [phone] Note from [facility],non-owned Affiliates and Associated Physician Practices is amultiple site organization consisting of ambulatory clinics and hospital sitesin [place], [place], [place] and [place]. This disclosure is being madepursuant to the Care Everywhere program and may not contain all information available regarding this patient. Last updated 18.[facility] Social History Tobacco Use Types Packs/Day Years Used Date Smoking Tobacco: Never Assessed Sex and Gender Information Value Date Recorded Sex Assigned at Not on file Gender Identity Not on file Sexual Orientation Not on file Last Filed Vital Signs Vital Sign Reading Time Taken Comments Blood Pressure 120/80 08/13/2014 2:15 PM COMMERCIAL ENGINEER Pulse - - Temperature 37.4 C (99.3 F) 10/07/2014 2:11 PM CDT Respiratory Rate 12 10/07/2014 2:11 PM CDT Oxygen Saturation - - Inhaled Oxygen Concentration - - Weight 109.8 kg (242 lb) 08/13/2014 2:15 PM COMMERCIAL ENGINEER Height 177.8 cm (5' 10 ) 08/13/2014 2:15 PM COMMERCIAL ENGINEER Body Mass Index 34.72 08/13/2014 2:15 PM COMMERCIAL ENGINEER Procedures * OSIRIS BLOOD SCREEN W/REFLEX TITER(Performed 08/14/2014) * ANGIOTENSIN CONVERTING ENZYME BLOOD(Performed 08/14/2014) * C-REACTIVE PROTEIN(Performed 08/14/2014) * COMPREHENSIVE METABOLIC PANEL(Performed 08/14/2014) * ERYTHROCYTE SEDIMENTATION RATE(Performed 08/14/2014) * CBC W AUTO DIFFERENTIAL(Performed 08/14/2014) * LAB HISTORICAL RESULTS-ONBASE(Performed 08/14/2014) Results * C-REACTIVE PROTEIN (08/14/2014 2:18 PM COMMERCIAL ENGINEER) [facility] C-Reactive Protein 0.76 <0.80 mg/dL [facility] Comment: Please be advised that patients taking Carboxypenicillins may exhibit falsely decreased C-Reactive Protein levels due to an analytical interference in this assay. Test Performed at: [facility] [id number] ZOYA ARECHIGA DO,MPH 08/14/2014 2:18 PM COMMERCIAL ENGINEER 08/14/2014 2:19 PM COMMERCIAL ENGINEER Tyrone Crawford MD LAB - CHEMISTRY SEYMOUR NIÑO Performing Organization Address [facility]/ZIP Co de Phone Number [facility] * OSIRIS BLOOD SCREEN W/REFLEX TITER (08/14/2014 2:18 PM COMMERCIAL ENGINEER) [facility] OSIRIS Screen NEGATIVE NEGATIVE [facility] Comment: Test Performed at: [place] [address] ZOYA ARECHIGA DO,MPH 08/14/2014 2:18 PM COMMERCIAL ENGINEER 08/14/2014 2:19 PM COMMERCIAL ENGINEER Tyrone rCawford MD LAB - CHEMISTRY SEYMOUR NIÑO [facility] * ANGIOTENSIN CONVERTING ENZYME BLOOD (08/14/2014 2:18 PM COMMERCIAL ENGINEER) Pathologist [facility] Angiotensin-Conv erting Enzyme 23 9 - 67 U/L [facility] Comment: Test Performed at: [place] [address] ZOYA ARECHIGA DO,MPH 08/14/2014 2:18 PM COMMERCIAL ENGINEER 08/14/2014 2:19 PM COMMERCIAL ENGINEER Tyrone Crawford MD LAB - CHEMISTRY SEYMOUR NIÑO [facility] * ERYTHROCYTE SEDIMENTATION RATE (08/14/2014 2:18 PM COMMERCIAL ENGINEER) Erythrocyte Sedimentation Rate Groverergren 14 < OR = 20 mm/h [facility] Comment: Test Performed at: [facility] [facility] [address] [place] [address] ZOYA ARECHIGA DO,MPH 08/14/2014 2:18 PM COMMERCIAL ENGINEER 08/14/2014 2:19 PM COMMERCIAL ENGINEER Tyrone Crawford MD LAB - HEMATOLOGY CYNTHIA BAUMAN Performing Organization Address [facility]/ZIP Co de Phone Number [facility] * CBC W AUTO DIFFERENTIAL (08/14/2014 2:18 PM COMMERCIAL ENGINEER) Pathologist [facility] WBC 8.8 3.8 - 10.8 Thousand/u L [facility] RBC 4.11 3.80 - 5.10 Million/uL [facility] Hemoglobin 12.2 11.7 - 15.5 g/dL [facility] Hematocrit 37.5 35.0 - 45.0 % [facility] MCV 91.3 80.0 - 100.0 fL [facility] MCH 29.8 27.0 - 33.0 pg [facility] MCHC 32.6 32.0 - 36.0 g/dL [facility] RDW-CV 13.9 11.0 - 15.0 % [facility] Platelet 249 140 - 400 Thousand/u L [facility] Neutrophils Absolute 5,474 1,500 - 7,800 cells/uL [facility] Lymphocyte Absolute Manual 2,605 850 - 3,900 cells/uL [facility] Monocytes Absolute 572 200 - 950 cells/uL [facility] Eosinophils Absolute 114 15 - 500 cells/uL [facility] Basophil Absolute Manual 35 0 - 200 cells/uL [facility] Neutrophils % 62.2 % [facility] Lymphocytes % 29.6 % [facility] Monocytes % 6.5 % [facility] Eosinophils % 1.3 % [facility] Basophil % 0.4 % [facility] Comment: Test Performed at: [facility] [address] [place] [address] ZOYA ARECHIGA DO,MPH 08/14/2014 2:18 PM COMMERCIAL ENGINEER 08/14/2014 2:19 PM COMMERCIAL ENGINEER Tyrone Crawford MD LAB - HEMATOLOGY ORD ERABLES [facility] * COMPREHENSIVE METABOLIC PANEL (08/14/2014 2:18 PM COMMERCIAL ENGINEER) Glucose 77 65 - 99 mg/dL [facility] Comment: Fasting reference interval BUN 13 7 - 25 mg/dL [facility] Creatinine 0.83 0.50 - 1.10 mg/dL [facility] eGFR non- 86 > OR = 60 mL/min/1. 73m2 [facility] eGFR 99 > OR = 60 mL/min/1. 73m2 [facility] BUN/Creatinine Ratio NOT APPLICABLE 6 - 22 (calc) [facility] Sodium 138 135 - 146 mmol/L [facility] Potassium 4.0 3.5 - 5.3 mmol/L [facility] Chloride 102 98 - 110 mmol/L [facility] CO2 26 19 - 30 mmol/L [facility] Calcium 9.3 8.6 - 10.2 mg/dL [facility] Protein Total 7.1 6.1 - 8.1 g/dL [facility] Albumin 4.0 3.6 - 5.1 g/dL [facility] Globulin 3.1 1.9 - 3.7 g/dL (calc) [facility] Albumin/Globuli n Ratio 1.3 1.0 - 2.5 (calc) [facility] Bilirubin Total 0.4 0.2 - 1.2 mg/dL [facility] Alkaline Phosphatase 82 33 - 115 U/L [facility] AST 18 10 - 30 U/L [facility] ALT 22 6 - 29 U/L [facility] Comment: Test Performed at: [facility] [address] [place] [address] ZOYA ARECHIGA DO,MPH 08/14/2014 2:18 PM COMMERCIAL ENGINEER 08/14/2014 2:19 PM COMMERCIAL ENGINEER Tyrone Crawford MD LAB - CHEMISTRY SEYMOUR NIÑO [facility] * LAB HISTORICAL RESULTS-ONBASE (08/14/2014) 08/14/2014 Narrative [facility] - 08/18/2014 9:09 AM COMMERCIAL ENGINEER Historical Provider LAB - CHEMISTRY [facility] [address] Care Teams Government Property Inspector Relationship Specialty Start Date End Date Rakan Patel MD [address] [place] [address] PCP - General 04/30/21
--- OUTSIDE RECORDS SUMMARY | 2024-08-24 02:16 | XMS_ITS | Clinical Summary ---
Author Organization [facility] [employer] Address [address] [place] [address] Care Team Providers Care Lump Roller Name Role Phone Rakan Patel MD Primary Care Provider [phone] Source Comments [facility] [employer],non-owned Affiliates and Associated Physician Practices is amultiple site organization consisting of ambulatory clinics and hospital sitesin [place], [place], [place] and [place]. This disclosure is being madepursuant to the Care Everywhere program and may not contain all information available regarding this patient. Last updated 18.[facility] [employer] Social History Tobacco Use Types Packs/Day Years Used Date Smoking Tobacco: Never Assessed Sex and Gender Information Value Date Recorded Sex Assigned at Not on file Gender Identity Not on file Sexual Orientation Not on file Last Filed Vital Signs Vital Sign Reading Time Taken Comments Blood Pressure 120/80 08/13/2014 2:15 PM PRODUCT DEVELOPMENT INTERN Pulse - - Temperature 37.4 C (99.3 F) 10/07/2014 2:11 PM CDT Respiratory Rate 12 10/07/2014 2:11 PM CDT Oxygen Saturation - - Inhaled Oxygen Concentration - - Weight 109.8 kg (242 lb) 08/13/2014 2:15 PM PRODUCT DEVELOPMENT INTERN Height 177.8 cm (5' 10 ) 08/13/2014 2:15 PM PRODUCT DEVELOPMENT INTERN Body Mass Index 34.72 08/13/2014 2:15 PM PRODUCT DEVELOPMENT INTERN Plan of Treatment Health Maintenance Due Date Last Done Comments COLOGUARD (AGES 45-75) - COLON CA SCREENING 1970 COLON MONITORING 1970 COLONOSCOPY - COLON CA SCREENING 1970 CT COLONOGRAPHY - COLON CA SCREENING 1970 Colorectal Cancer Screening 1970 FIT - COLON CA SCREENING 1970 FLEX SIG - COLON CA SCREENING 1970 LIPID TESTING 1970 MAMMOGRAM 1970 PAP SMEAR 1970 HIV SCREENING 1985 HEPATITIS C SCREENING 02/05/1988 DTAP/TDAP/TD VACCINES (1 - Tdap) 1989 HEPATITIS B VACCINE (1 of 3 - 19+ 3-dose series) 1989 PNEUMOCOCCAL VACCINE 50+ (1 of 1 - PCV) 02/10/2020 ZOSTER VACCINE (1 of 2) 02/10/2020 COVID-19 VACCINE (1 - season) 2024 INFLUENZA VACCINE (#1) 2024 , 06/07/2020, 04/11/2019, Additional history exists DEPRESSION SCREENING 07/17/2024 HIB VACCINE Aged Out No longer eligi ble based on patient's age to complete this topic HPV VACCINE Aged Out No longer eligi ble based on patient's age to complete this topic MENINGOCOCCAL (Group B) VACCINE Aged Out No longer eligible based on patient's age to complete this topic MENINGOCOCCAL VACCINE Aged Out No ev tita eligible based on patient's age to complete this topic PNEUMOCOCCAL VACCINE Aged Out No long er eligible based on patient's age to complete this topic Care Teams Lump Roller Relationship Specialty Start Date End Date Rakan Patel MD [address] [place] [address] PCP - General 04/30/21
--- OUTSIDE RECORDS SUMMARY | 2024-08-24 02:16 | XMS_ITS | Referral Summary ---
Author Organization [facility] Address [address] [place] [address] Care Team Providers Care Automotive Service Porter Name Role Phone Rakan Patel MD Primary Care Provider Heber Cha MD Unavailable [phone] Ruddy Benites Unavailable [phone] Allergies Active Allergy Reactions Criticality Noted Date Comments Vancomycin Itching Low 03/12/2021 Medications gabapentin (NEURONTIN) 300 mg capsule Take 3 capsules (900 mg total) by mouth nightly 03/25/2021 Active valACYclovir (VALTREX) 500 mg tablet Take 1 tablet (500 mg total) by mouth daily 02/26/2021 Active UNABLE TO FIND nightly as needed Med Name: CBD oil Active cyanocobalamin (Vitamin B-12) 2,000 mcg tablet Active glucosamine-cho ndroitin 500-400 mg tablet Take 1 tablet by mouth 3 (three) times a day Active cholecalciferol (VITAMIN D-3) 5,000 unit capsule Take 1 capsule (5,000 Units total) by mouth daily Active echinacea 500 mg capsule Take by mouth Activ e vit C/Zn gluc/herbal no.325 (ELDERBERRY ZINC VIT C MM) Apply to mouth Active guaiFENesin ER (MUCINEX) 600 mg 12 hr tablet Take 2 tablets (1,200 mg total) by mouth 2 (two) times a day Active ginkgo biloba 40 mg tablet Take by mouth Act beverly fexofenadine (CECIL) 180 mg tablet Take 1 tablet (180 mg total) by mouth daily Active montelukast (SINGULAIR) 10 mg tablet Take 1 tablet (10 mg total) by mouth nightly Active pantoprazole DR (PROTONIX) 40 mg EC tablet Take 1 tablet (40 mg total) by mouth daily Active methocarbamoL (ROBAXIN) 750 mg tabletIndicatio ns:Fusion of spine, cervical region,Other muscle spasm TAKE 1 TABLET BY MOUTH 4 TIMES A DAY. 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 (02/05/2022): C6-7 Chronic left shoulder pain 10/12/2021 Carpal tunnel syndrome of left wrist 10/12/2021 Cervical vertebral fusion 06/07/2021 History of cervical spinal surgery 06/07/2021 Cervical disc herniation 04/28/2021 Overview (04/28/2021): Added automatically from request for surgery [id number] Cervical radiculopathy 02/12/2015 Immunizations Name Administration Dates Next Due Influenza, Quadrivalent, Lucina l Culture-based MDCK, Preservative Free, Antibiotic Free, Intramuscular 04/11/2019 Influenza, Quadrivalent, Spl it, Preservative Free, Intramuscular 06/07/2020 Influenza, Trivalent, Preservative Free, Intramu scular 04/16/2015 Influenza, Unspecified 05/17/2021 Tdap 11/07/2012 Social History Tobacco Use Types Packs/Day Years Used Date Smoking Tobacco: Never Smokeless Tobacco: Never Tobacco Cessation:Counseling Given: No AUDIT-C Answer Date Recorded Q1: How often do you have a drink containing alc ohol? Monthly or less 06/07/2021 Q2: How many drinks containi ng alcohol do you have on a typical day when you are drinking? 1 or 2 06/07/2021 Q3: How often do you have si x or more drinks on one occasion? Never 06/07/2021 Comments No Sex and Gender Information Value Date Recorded Sex Assigned at Not on file Legal Sex Female 12:30 PM MOISTURE METER OPERATOR Gender Identity Not on file Sexual Orientation Not on file Last Filed Vital Signs Vital Sign Reading Time Taken Comments Blood Pressure 154/89 06/07/2023 10:56 AM MOISTURE METER OPERATOR Pulse 88 06/07/2023 10:56 AM MOISTURE METER OPERATOR Temperature 36.7 C (98 F) 11/23/2021 5:06 PM CDT Respiratory Rate 18 11/23/2021 8:55 PM CDT Oxygen Saturation 94% 06/07/2023 10:56 AM MOISTURE METER OPERATOR Inhaled Oxygen Concentration - - Weight 121.1 kg (267 lb) 06/07/2023 10:56 AM MOISTURE METER OPERATOR Height 177.8 cm (5' 10 ) 06/07/2023 10:56 AM MOISTURE METER OPERATOR Body Mass Index 38.31 06/07/2023 10:56 AM MOISTURE METER OPERATOR Plan of Treatment Not on file Medical Devices Implanted Type Area Wound Care Rn Device Identifier Shelf Expiration Date Model / Serial / Lot Musculoskeletal Transplant [id number] 4-30mm Allograft Frozen [id number] Wedge Graft Bone - [id number] - [id number] Implanted:Qty: 1 on 06/07/2021 by Heber Cha MD at [facility] Bone N/A: Spine Cervical Musculoskeletal Transplant 01/30/2025 [id number] / [id number] / [employer] [id number] Xtend L32 Mm 2 Level Spine; Cervical; Anterior Plate Bone - [id number] Implanted:Qty: 1 on 06/07/2021 by Heber Cha MD at [facility] N/A: Other - see comments [employer] 161.232 / / Description:Cervical Spine [employer] 161.314 Xtend Od4.2 Mm L14 Mm Variable Angle; Self Tap Spine Screw Bone - [id number] Implanted:Qty: 4 on 06/07/2021 by Heber Cha MD at [facility] N/A: Other - see comments [facility] [employer] 161.314 / / Description:Cervical Spine [facility] 665.614 L14 Mm Spine Distractor Surgical - [id number] Implanted:Qty: 2 on 06/07/2021 by Heber Cha MD at [facility] N/A: Other - see comments [facility] 665.614 / / Description:Cervical Spine Procedures Procedure Name Priority Date/Time Associated Diagnosis Comments SERUM HEPATITIS C AB Routine 02/24/2015 6:18 AM CDT from Last 3 Months or Most Recently Relevant to Health Maintenance Results * Serum Hepatitis C ab (02/24/2015 6:18 AM CDT) HCV ab Negative NEG HISTORICAL RESULTS Serum 02/24/2015 6:18 AM CDT Narrative HISTORICAL RESULTS - 02/24/2015 8:34 AM CDT Interpretive Data If confirmation is required, call Laboratory Customer Service to request sample to be sent to [facility] for Hepatitis C Virus (HCV) RNA Detection and Quantitation by Real-Time Reverse Sales Outfitter-PCR (RT-PCR). Current interpretive data was last revised on 2011 us Ruddy Velez MD LAB BLOOD ORDERABLES Final Re sult HISTORICAL RESULTS from Last 3 Months or Most Recently Relevant to Health Maintenance Insurance [facility] Advance Directives For more information, please contact: [phone] * Full Code (Latest Code Status on File) Date Activated Date Inactivated Comments 06/07/2021 1:31 PM 06/08/2021 8:41 PM * Full Code Date Activated Date Inactivated Comments 04/21/2021 10:29 AM 04/22/2021 4:47 AM Care Teams Automotive Service Porter Relationship Specialty Start Date End Date Rakan Patel MD [address] [facility] [address] [place] [address] PCP - General Family Medicine 03/11/21 Heber Cha MD [address] [place], [place] [id number] Surgeon Neurosurgery 02/12/15 Ruddy Benites PA [address] [place] [id number] Physician Disc Ruler Operator Neurosurgery 03/17/21
--- OUTSIDE RECORDS SUMMARY | 2024-08-24 02:16 | XMS_ITS | Referral Summary ---
Author Organization [facility] Address [address] [facility] [place] [address] Care Team Providers Care Chemical Plant Operator Supervisor Name Role Phone Rakan Patel MD Primary Care Provider [phone] Source Comments [facility],non-owned Affiliates and Associated Physician Practices is amultiple site organization consisting of ambulatory clinics and hospital sitesin [place], [place], [place] and [place]. This disclosure is being madepursuant to the Care Everywhere program and may not contain all information available regarding this patient. Last updated 18.[facility] [employer] Social History Tobacco Use Types Packs/Day Years Used Date Smoking Tobacco: Never Assessed Sex and Gender Information Value Date Recorded Sex Assigned at Not on file Gender Identity Not on file Sexual Orientation Not on file Last Filed Vital Signs Vital Sign Reading Time Taken Comments Blood Pressure 120/80 08/13/2014 2:15 PM BILINGUAL HR GENERALIST Pulse - - Temperature 37.4 C (99.3 F) 10/07/2014 2:11 PM CDT Respiratory Rate 12 10/07/2014 2:11 PM CDT Oxygen Saturation - - Inhaled Oxygen Concentration - - Weight 109.8 kg (242 lb) 08/13/2014 2:15 PM BILINGUAL HR GENERALIST Height 177.8 cm (5' 10 ) 08/13/2014 2:15 PM BILINGUAL HR GENERALIST Body Mass Index 34.72 08/13/2014 2:15 PM BILINGUAL HR GENERALIST Plan of Treatment Not on file Care Teams Chemical Plant Operator Supervisor Relationship Specialty Start Date End Date Rakan Patel MD [address] [place] [address] PCP - General 04/30/21
--- OUTSIDE RECORDS SUMMARY | 2024-08-24 02:16 | XMS_ITS | Clinical Summary ---
Author Organization [facility] Care Team Providers Care Camp Assistant Name Role Phone Unavailable Primary Care Provider Unavailabl e Social History Tobacco Use Types Packs/Day Years Used Date Smoking Tobacco: Never Assessed Comments Unknown Sex and Gender Information Value Date Recorded Sex Assigned at Not on file Legal Sex Female 12:13 PM RETAIL SUPERVISOR Gender Identity Not on file Sexual Orientation Not on file Plan of Treatment Health Maintenance Due Date Last Done Comments Hepatitis C Virus (HCV) Screening 1970 TdaP Immunization 1970 Hepatitis B Immunization (1 of 3 - 19+ 3-dose series) 1989 Pap Smear 1991 Cervical Cancer Screening (CCS) 02/10/2000 HPV/Cotest 02/10/2000 Colonoscopy 2015 Colorectal Cancer Screening 2015 Cologuard 02/10/2020 Immunochemical Fecal Occult Blood 02/10/2020 Mammogram 02/10/2020 Pneumococcal Immunization (5 0+ years) (1 of 1 - PCV) 02/10/2020 Zoster Immunization (1 of 2) 02/10/2020 Influenza Immunization (#1) 03/17/202405/18, 04/11/2019 SARS-COV-2 Immunization ( season) 2024 06/21/2021, 11/18/2020, 10/28/2020 Respiratory Syncytial Virus (RSV) Immunization (Adult) (1 - 1-dose 75+ series) 2045 Meningococcal Immunization (ACWY) Aged Out No longer eligible b ased on patient's age to complete this topic Pneumococcal Immunization Combined Aged Out No longer eligible b ased on patient's age to complete this topic Rotavirus Immunization Aged Out No lo nger eligible based on patient's age to complete this topic
--- OUTSIDE RECORDS SUMMARY | 2024-08-24 02:16 | XMS_ITS | Clinical Summary ---
Author Organization [facility] Address [address] [place] [address] Care Team Providers Care Linter Tender Name Role Phone Rakan Patel MD Primary Care Provider Heber Cha MD Unavailable [phone] Ruddy Benites Unavailable [phone] Allergies Active Allergy Reactions Criticality Noted Date [...] (04/28/2021): Added automatically from request for surgery [id number] Cervical radiculopathy 02/12/2015 Immunizations Name Administration Dates Next Due Influenza, Quadrivalent, Lucina l Culture-based MDCK, Preservative Free, Antibiotic Free, Intramuscular 04/11/2019 Influenza, Quadrivalent, Spl it, Preservative Free, Intramuscular 06/07/2020 Influenza, Trivalent, Preservative Free, Intramu scular 04/16/2015 Influenza, Unspecified 05/17/2021 Tdap 11/07/2012 Surgical History Surgery Date Site/Laterality Comments HYSTERECTOMY Hysterectomy - 03/06/13 (Added by TW Conv) [place] DELIVERY ONLY Section - (Added by TW Conv) [place] UNLISTED PROCEDURE BREAST Breast Surgery - Reduction (Added by TW Conv) FOOT SURGERY 07/17/2010 - 07/16/2011 Bunion Foot Surgery - (Added by TW Conv) SPINE SURGERY 03/17/2015 - 04/15/2015 C5-6 discectomy/arthroplasy - Dr. Cha CERVICAL SPINE SURGERY 06/07/[address] Cha- C6 Corpectomy and RECONSTRUCTION with removal of arthroplasty Medical History Medical History Date Comments Migraine Cervical pain (neck) Depression Covid-19 body aches Hard to intubate Asthma GERD (gastroesophageal reflux disease) Family History Medical History Relation Name Comments Hypertension Mother Relation Name Status Comments Mother Social History Tobacco Use Types Packs/Day Years [...] on file Legal Sex Female 12:30 PM LIVESTOCK HANDLER Gender Identity Not on file Sexual Orientation Not on file Obstetrics History Last Filed Vital Signs Vital Sign Reading Time Taken Comments Blood Pressure 154/89 06/07/2023 10:56 AM LIVESTOCK HANDLER Pulse 88 06/07/2023 10:56 AM LIVESTOCK HANDLER Temperature 36.7 C (98 F) 11/23/2021 5:06 PM CDT Respiratory Rate 18 11/23/2021 8:55 PM CDT Oxygen Saturation 94% 06/07/2023 10:56 AM LIVESTOCK HANDLER Inhaled Oxygen Concentration - - Weight 121.1 kg (267 lb) 06/07/2023 10:56 AM LIVESTOCK HANDLER Height 177.8 cm (5' 10 ) 06/07/2023 10:56 AM LIVESTOCK HANDLER Body Mass Index 38.31 06/07/2023 10:56 AM LIVESTOCK HANDLER Plan of Treatment Health Maintenance Due Date Last Done Comments Breast Cancer Screening-Mammogram 1970 Colon Cancer Screening-Colonoscopy 1970 Depression Screening 1970 Hepatitis B Screening 02/10/1988 Regular Well Visit/Exam 18-64 02/10/1988 Zoster Vaccine (1 of 2) 02/10/2020 DTaP/Tdap/Td Vaccine (2 - Td or Tdap) 11/07/2022 11/07/2012 Covid-19 Vaccine (3 - season) 2024 11/18/2020, 10/28/2020 Influenza Vaccine (#1) 2024 , 06/07/2020, 04/11/2019, Additional history exists Hepatitis C Screening Completed 02/24/2015 Pneumococcal vaccine <65 Aged Out No longer eligible based on patient's age to complete this topic Medical Devices Implanted Type Area Business Process Architect Device Identifier Shelf Expiration Date Model / Serial / Lot Musculoskeletal Transplant [id number] 4-30mm Allograft Frozen [id number] Wedge Graft Bone - [id number] - [id number] Implanted:Qty: 1 on 06/07/2021 by Heber Cha MD at [facility] Bone N/A: Spine Cervical Musculoskeletal Transplant 01/30/2025 [id number] / [id number] / [employer] [id number] Xtend L32 Mm 2 Level Spine; Cervical; Anterior Plate Bone - [id number] Implanted:Qty: 1 on 06/07/2021 by Heber Cha MD at [facility] N/A: Other - see comments [facility] 161.232 / / Description:Cervical Spine [employer] 161.314 Xtend Od4.2 Mm L14 Mm Variable Angle; Self Tap Spine Screw Bone - [id number] Implanted:Qty: 4 on 06/07/2021 by Heber Cha MD at [facility] N/A: Other - see comments [employer] 161.314 / / Description:Cervical Spine [employer] 665.614 L14 Mm Spine Distractor Surgical - [id number] Implanted:Qty: 2 on 06/07/2021 by Heber Cha MD at [facility] N/A: Other - see comments [employer] 665.004 / / Description:Cervical Spine Procedures Procedure Name [...] to request sample to be sent to [facility] for Hepatitis C Virus (HCV) RNA Detection and Quantitation by Real-Time Reverse Public Health Epidemiologist-PCR (RT-PCR). Current interpretive data was last revised on 2011 us Ruddy Velez MD LAB BLOOD ORDERABLES Final Re sult HISTORICAL RESULTS from Last 3 Months or Most Recently Relevant to Health Maintenance [place]ives For more information, please contact: [phone] * Full Code (Latest Code Status on File) Date Activated Date Inactivated Comments 06/07/2021 1:31 PM 06/08/2021 8:41 PM * Full Code Date Activated Date Inactivated Comments 04/21/2021 10:29 AM 04/22/2021 4:47 AM Care Teams Linter Tender Relationship Specialty Start Date End Date Rakan Patel MD [address] [place] [address] PCP - General Family Medicine 03/11/21 Heber Cha MD [address] [facility] [address] [place] [address] Surgeon Neurosurgery 02/12/15 Ruddy Benites PA [address] [facility] [address] [place], [place] [id number] Physician Dry Drug Worker Neurosurgery 03/17/21
[2024-08-24 02:21] LABS: Estimated Glomerular Filt Rate > 60
[2024-08-24 02:24] LABS: Basophils Percent Auto 0.3 % (0.2-1.2); Eosinophils Absolute Auto 0.1 K/mm3 (0-0.3); Eosinophils Percent Auto 0.5 % (0-4.4); Hematocrit 39.3 % (37.0-47.0); Immature Granulocyte Absolute 0.04 K/mm3 (0.00-0.031); Immature Granulocyte Percent A 0.3 % (0-0.5); Lymphocytes Absolute Auto 3.08 K/mm3 (0.9-3.2); Lymphocytes Percent Auto 23.4 % (18.3-44.2); Mean Corpuscular HGB Conc 30.5 g/dl (32-36); Mean Corpuscular Hemoglobin 28.6 pg (26-34); Mean Corpuscular Volume 93.8 fl (80-100); Monocytes Percent Auto 7.8 % (2.6-8.5); Neutrophils Absolute Auto 8.9 K/mm3 (1.3-6.7); Neutrophils Percent Auto 67.7 % (45.5-73.1); Platelet Count Result 223 k/mm3 (150-375); Red Blood Count 4.19 M/mm3 (4.2-5.4); Red Cell Distribution Width 13.9 % (11.5-14.5); White Blood Count 13.2 K/mm3 (4.5-10.0)
[2024-08-24 02:28] VITALS: BP 177/100; BP 178/97; BP 179/97; PULSE 81; PULSE 84; PULSE 85; PULSE 86; RESP 12; RESP 15; RESP 18; TEMP 36.7; O2SAT 100
[2024-08-24 02:36] LABS: Alanine Aminotransferase 25 U/L (6-35); Albumin Level 4.2 g/dL (3.5-5.1); Alkaline Phosphatase 90 U/L (38-126); Anion Gap 11 mmol/L (4-12); Aspartate Amino Transferase 26 U/L (14-36); Bilirubin,Total 0.6 mg/dL (0.2-1.3); Blood Urea Nitrogen 22 mg/dL (7-17); Calcium 9.3 mg/dL (8.4-10.2); Carbon Dioxide 25 mmol/L (22-30); Chloride 107 mmol/L (98-107); Estimated Glomerular Filt Rate > 60; Glucose 100 mg/dL (65-110); INR 0.9; Partial Thromboplastin Time 27.4 Seconds (22.3-36.8); Potassium 4.5 mmol/L (3.4-5.0); Prothrombin Time 12.7 Seconds (11.1-14.7); Sodium 143 mmol/L (137-145)
[2024-08-24 02:47] VITALS: BP 156/88; PULSE 82; RESP 22; O2SAT 100
--- NOTE | 2024-08-24 02:48 | ED_ITS ---
HPI - Neuro Symptoms/Deficit General Chief Complaint: Suspected CVA Stated Complaint: Stroke symtoms Time Seen by Provider: 08/24/24 02:45 History of Present Illness HPI Narrative: This is a 54-year-old female presenting for stroke symptoms. At 1:45 a.m. she developed facial droop, right arm weakness, and right leg weakness. EMS was called and she was brought to the hospital for evaluation. Patient is currently complaining of a posterior headache. No complaints. Related Data Home Medications ?Medication ?Instructions ?Recorded ?Confirmed ?Last Taken ?Type fezolinetant 45 mg tablet (Veozah) mg PO 11/16/23 11/16/23 Unknown History phentermine 30 mg capsule 30 mg PO DAILY 11/16/23 11/16/23 Unknown History Allergies Allergy/AdvReac Type Severity Reaction Status Date / Time vancomycin Allergy Unknown Unknown Verified 08/24/24 02:39 PENDING SALE TO [facility] Past Medical History Medical History Gastroesophageal reflux Pulmonary nodule Anxiety Chronic neck pain Surgical History Surgical History History of bunionectomy of left great toe History of bilateral breast reduction surgery History of hysterectomy History of carpal tunnel release History of section History of cervical spinal surgery History of arthroscopy of right shoulder Family History Family History Sibling Family history of suicide Social History Social History Social History: Surrogate medical decision maker: Tony Conklin (son) or Renzo Urbina (spouse). Code status: Full code. Smoking status: Never smoker Second hand tobacco smoke exposure: Yes Alcohol intake: current Alcohol use details: Social alcohol use in moderation. Substance use: current Substance use type: marijuana Last use: 09/2022 Do You Feel Safe in your Home?: Yes Lack of Transportation: No Lack of Food: Never True Current Housing: I Have Housing Concerned About Future Housing: No Difficulty Paying Gas/Electric Bills: No Difficulty Paying for Meds: No Currently Unemployed: YES Education: High School Diploma/GED Difficulty w/ Childcare or Family Care: No Living arrangements: with family Occupation/Education: unemployed Gender identity (if verbalized by the patient): Female Sexual Orientation (if Verbalized by the Patient): Straight or Heterosexual Spiritual care concerns: No Exam 2 Narrative: APPEARANCE: No apparent distress. Head: atraumatic. EYES: EOMI, NOSE: Atraumatic NECK: Trachea midline RESPIRATORY: No increased rate of breathing CARDIOVASCULAR: RRR, ABDOMINAL: Non-distended MUSCULOSKELETAl: No obvious deformities NEURO: Alert. Right-sided facial droop, right arm drift, right leg drift, dystaxia in the right arm and right leg SKIN:: Warm, dry. Normal color PSYCHIATRIC: Normal affect NIH Stroke Scale/Score (NIHSS) from [facility] on 08/24/2024 All calculations should be rechecked by clinician prior to use RESULT SUMMARY: 7 points NIH Stroke Scale INPUTS: 1A: Level of consciousness ?> 0 = Alert; keenly responsive 1B: Ask month and age ?> 0 = Both questi ons right 1C: 'Blink eyes' & 'squeeze hands' ?> 0 = Performs both tasks 2: Horizontal extraocular movements ?> 0 = Normal 3: Visual haile ?> 0 = No visual loss 4: Facial palsy ?> 1 = Minor paralysis ( flat nasolabial fold, smile asymmetry) 5A: Left arm motor drift ?> 0 = No drift for 10 seconds 5B: Right arm motor drift ?> 1 = Drift, but doesn't hit bed 6A: Left leg motor drift ?> 0 = No drift for 5 seconds 6B: Right leg motor drift ?> 2 = Drift, hits bed 7: Limb Ataxia ?> 2 = Ataxia in 2 Limbs 8: Sensation ?> 1 = Mild-moderate loss: less sharp/more dull 9: Language/aphasia ?> 0 = Normal; no ap hasia 10: Dysarthria ?> 0 = Normal 11: Extinction/inattention ?> 0 = No abn ormality tPA Contraindications for Ischemic Stroke from [facility] on 08/24/2024 All calculations should be rechecked by clinician prior to use RESULT SUMMARY: Patient eligible for tPA. INPUTS: Age >=8 ?> 1 = Yes Clinical diagnosis of ischemic stroke causing neurological deficit ?> 1 = Yes Time of symptom onset <4.5 hours ?> 1 = Yes Intracranial hemorrhage on CT ?> 0 = No Clinical presentation suggests subarachnoid hemorrhage ?> 0 = No Neurosurgery, head trauma, or stroke in past 3 months ?> 0 = No Uncontrolled hypertension (>185 mmHg SBP or >110 mmHg DBP) ?> 0 = No History of intracranial hemorrhage ?> 0 = No Known intracranial arteriovenous malformation, neoplasm, or aneurysm ?> 0 = No Active internal bleeding ?> 0 = No Suspected/confirmed endocarditis ?> 0 = No Known bleeding diathesis ?> 0 = No Abnormal blood glucose (<50 mg/dL) ?> 0 = No Intra-axial intracranial neoplasm ?> 0 = No Gastrointestinal (GI) malignancy ?> 0 = No Gastrointestinal (GI) hemorrhage within the last 21 days ?> 0 = No Intracranial or intraspinal surgery within the last 3 months ?> 0 = No CT brain imaging shows extensive regions of clear hypoattenuation ?> 0 = No Stroke is known or suspected to be associated with aortic arch dissection ?> 0 = No Only minor or rapidly improving stroke symptoms ?> 0 = No Major surgery or serious non-head trauma in the previous 14 days ?> 0 = No History of gastrointestinal or urinary tract hemorrhage within 21 days ?> 0 = No Seizure at stroke onset ?> 0 = No Recent arterial puncture at a noncompressible site ?> 0 = No Recent lumbar puncture ?> 0 = No Post myocardial infarction pericarditis ?> 0 = No ?> 0 = No Age >80 years ?> 0 = No History of prior stroke and diabetes ?> 0 = No Any active anticoagulant use (even with INR <1.7) ?> 0 = No NIHSS >25 ?> 0 = No CT shows multilobar infarction (hypodensity >1/3 cerebral hemisphere) ?> 0 = No Course Vital Signs Vital signs: Vital Signs Temperature 98.1 F 08/24/24 02:28 Pulse Rate 85 08/24/24 02:28 Respiratory Rate 18 08/24/24 02:28 Blood Pressure 178/97 H 08/24/24 02:28 Pulse Oximetry 100 08/24/24 02:28 Oxygen Delivery Room Air 08/24/24 02:28 Temperature 98.1 F 08/24/24 02:28 Pulse Rate 82 08/24/24 02:47 Respiratory Rate 22 H 08/24/24 02:47 Blood Pressure 156/88 H 08/24/24 02:47 Pulse Oximetry 100 08/24/24 02:47 Oxygen Delivery Room Air 08/24/24 02:28 MDM - Neuro Symptoms/Deficit MDM Narrative Medical decision making narrative: -Course: This is a 54-year-old female presenting with stroke symptoms. Last known normal was 1:45 a.m.. NIH of 7 as documented in the physical exam. Patient has no contraindications to thrombolysis. Risks and benefits were explained to the patient and she has opted for thrombolysis treatment. Patient received TNK. Case was discussed at [facility] transfer line with their stroke team. Discussed care with (Neuro) and Dr. Flanagan (ED) Patient will be transferred [facility] for time critical diagnosis for further management -DDX includes but is not limited to: CVA, TIA, functional neurologic deficit, complex migraine, Lab Data 08/24/24 02:17 08/24/24 02:18 Labs: Lab Results 08/24/24 08/24/24 Range/Units 02:17 02:18 WBC 13.2 H (4.5-10.0) K/mm3 RBC 4.19 L (4.2-5.4) M/mm3 Hgb 12.0 (12.0-15.0) g/dL Hct 39.3 (37.0-47.0) % MCV 93.8 (80-100) fl MCH 28.6 (26-34) pg MCHC 30.5 L (32-36) g/dl RDW 13.9 (11.5-14.5) % Plt Count 223 (150-375) k/mm3 MPV 10.0 (7.4-10.4) fl Immature Gran % (Auto) 0.3 (0-0.5) % Neut % (Auto) 67.7 (45.5-73.1) % Lymph % (Auto) 23.4 (18.3-44.2) % [place] % (Auto) 7.8 (2.6-8.5) % Eos % (Auto) 0.5 (0-4.4) % Baso % (Auto) 0.3 (0.2-1.2) % Lymph # (Auto) 3.08 (0.9-3.2) K/mm3 [place] # (Auto) 1.0 H (0.1-0.6) K/mm3 Eos # (Auto) 0.1 (0-0.3) K/mm3 Baso # (Auto) 0.0 (0.0-0.1) K/mm3 Abs Immat Gran (auto) 0.04 H (0.00-0.031) K/mm3 Absolute Neuts (auto) 8.9 H (1.3-6.7) K/mm3 Absolute Nucleated RBC 0.000 (0.0-0.012) K/mm3 Nucleated RBC % 0.0 (0.0-0.2) % PT 12.7 (11.1-14.7) Seconds INR 0.9 APTT 27.4 (22.3-36.8) Seconds Sodium 143 (137-145) mmol/L Potassium 4.5 (3.4-5.0) mmol/L Chloride 107 (98-107) mmol/L Carbon Dioxide 25 (22-30) mmol/L Anion Gap 11 (4-12) mmol/L BUN 22 H (7-17) mg/dL Creatinine 0.71 0.90 (0.7-1.0) mg/dL Estim Creat Clear Calc Not Reportable Not Reportable Estimated GFR > 60 > 60 (59 - ) Glucose 100 (65-110) mg/dL Calcium 9.3 (8.4-10.2) mg/dL Total Bilirubin 0.6 (0.2-1.3) mg/dL AST 26 (14-36) U/L ALT 25 (6-35) U/L Alkaline Phosphatase 90 (38-126) U/L Troponin I < 0.012 (0.000-0.034) ng/mL Total Protein 8.0 (6.3-8.2) g/dL Albumin 4.2 (3.5-5.1) g/dL Critical Care Time Critical Care Time Critical Care Time: Yes Total Critical Care Time: 60 Discharge Plan Discharge Clinical Impression: CVA (cerebrovascular accident) Patient Disposition: Acute Care Hospital Condition: Stable Patient Language: Bermudian Prescriptions: No Action (DME) blood pressure monitor [Blood Pressure Kit] Kit See Rx Instructions .Route Qty: 1 0RF Rx Instructions: As directed phentermine 30 mg capsule 30 mg PO DAILY Veozah 45 mg tablet PO albuterol sulfate 90 mcg/actuation HFA aerosol inhaler 2 inh INHALATION Q4-6H PRN (Reason: shortness of breath or wheezing) Qty: 8.5 2RF ipratropium-albuterol 0.5 mg-3 mg(2.5 mg base)/3 mL solution for nebulization 3 ml INHALATION Q4H PRN (Reason: shortness of breath or wheezing) Qty: 90 3RF lidocaine 4 % adhesive patch,medicated 1 patch topical BID PRN (Reason: pain) Qty: 30 0RF montelukast [Singulair] 10 mg tablet 10 mg PO DAILY Qty: 90 2RF pantoprazole 40 mg tablet,delayed release (DR/EC) See Rx Instructions .ROUTE .COMPLEX Qty: 90 2RF Dose Instruction: TAKE 1 TABLET BY MOUTH EVERY DAY IN THE MORNING Rx Instructions: TAKE 1 TABLET BY MOUTH EVERY DAY IN THE MORNING valacyclovir [Valtrex] 500 mg tablet 500 mg PO DAILY Qty: 90 3RF meloxicam 7.5 mg tablet 7.5 mg PO BID Qty: 60 2RF nortriptyline 50 mg capsule 50 mg PO QHS Qty: 90 1RF hydrocodone-acetaminophen 5-325 mg tablet 1 tablet PO Q8H PRN (Reason: pain) Qty: 10 0RF gabapentin 600 mg tablet 600 mg PO QID Qty: 120 0RF methocarbamol 750 mg tablet 750 mg PO TID PRN (Reason: muscle spasm) Qty: 60 0RF Follow-up/Referrals: Bertrand Head MD [Primary Care Provider] -
[2024-08-24 02:53] LABS: Troponin I < 0.012 ng/mL (0.000-0.034)
[2024-08-24 03:16] VITALS: BP 159/91; PULSE 73; RESP 22; O2SAT 98
[2024-08-24] MEDS: TENECTEPLASE 50 MG/10 ML VIAL 25 MG IV PUSH (03:23)
[2024-08-24 03:57] VITALS: BP 147/89; PULSE 73; RESP 16; O2SAT 98
[2024-08-24 03:59] LABS: Glucose Point of Care 101 mg/dl (65-105)
== END 2024-08-24 04:01 | disposition short-term general hospital (02) ==
PROVIDERS: Emergency Provider Emergency Medicine; PCP Obstetrics & Gynecology
DX: I63.9 Cerebral infarction, unspecified (principal); R29.707 NIHSS score 7; K21.9 Gastro-esophageal reflux disease without esophagitis; Z90.710 Acquired absence of both cervix and uterus; Z77.22 Contact with and (suspected) exposure to environmental tobacco smoke (acute) (chronic); R94.31 Abnormal electrocardiogram [ECG] [EKG]
CPT/HCPCS: 36415; 70450; 70496; 70498; 71045; 80053; 82948; 84484; 85025; 85610; 85730; 93005; 96374; 99285; J3101; Q9967

== ENCOUNTER 2024-11-19 00:44 | Observation (INO) | payer MEDICARE, SELFPAY ==
[2024-11-19] VITALS (11 sets, daily range): BP systolic 131–160; BP diastolic 81–95; PULSE 67–78; RESP 14–18; TEMP 36.4–36.5; O2SAT 98–100; BMI 35.8
--- NOTE | 2024-11-19 | ECHO_ITS ---
Patient Info Name: Irma Urbina Age: 54 years : 1970 Gender: Female Ht: 70 in Wt: 250 lbs BSA: 2.41 m2 HR: 72 bpm BP: 142 / 84 mmHg Heart Rhythm: Sinus Rhythm Technical Quality: Good Exam Date: 11/19/2024 1:28 PM Exam Location: Echo Lab Patient Status: Outpatient Admit Date: 11/19/2024 Staff Ordering Physician: Cara Do Nut Culler: Rasheeda Henry RDCS Attending Provider: Gallo Smith MD Referring Physician: Ernestina GANDHI; Exam Type: CA echo doppler w bubble study Study Info Indications - Stroke like symptoms Complete two-dimensional, color flow and Doppler transthoracic echocardiogram is performed with agitated saline. Contrast/Agitated Saline Contrast/Ag. Saline: Agitated Saline Amount: 20.00 ml Existing IV Access: Yes IV Access Condition: patent with no signs of infiltration Summary 1. Left ventricular chamber dimension is normal. 2. Left ventricular systolic function is normal, estimated at 65-70%. 3. The left ventricular diastolic function is grade II diastolic dysfunction. 4. E/e' 11 is mildly elevated. 5. There is mild mitral valve regurgitation. 6. There is trace tricuspid valve regurgitation. 7. No pulmonary hypertension, estimated pulmonary arterial systolic pressure is 28 mmHg. Left Ventricle E/e' 11 is mildly elevated. Left ventricular chamber dimension is normal. Left ventricular systolic function is normal, estimated at 65-70%. The left ventricular diastolic function is grade II diastolic dysfunction. Right Ventricle Right ventricular systolic function is normal and with normal TAPSE 2.3 cm. Right ventricular chamber dimension is normal. Left Atria Left atrial chamber dimension is normal. Right Atria Right atrial chamber dimension is normal. Atrial Septum Agitated saline injection with and without valsalva maneuver opacified right side cardiac chambers without shunt to left side cardiac chambers. Intact interatrial septum visualized by 2D and agitated saline imaging. Aortic Valve The aortic valve is trileaflet. There is no aortic valve stenosis. There is no aortic valve regurgitation. Pulmonic Valve There is no pulmonic regurgitation. Mitral Valve There is no mitral valve stenosis. There is mild mitral valve regurgitation. Tricuspid Valve There is trace tricuspid valve regurgitation. No pulmonary hypertension, estimated pulmonary arterial systolic pressure is 28 mmHg. Pericardium/Pleural There is no pericardial effusion. Inferior Vena Cava Normal inferior vena cava with >50% collapse upon inspiration consistent with normal right atrial pressure, 5 mmHg. Aorta The aortic root size at the sinus of Valsalva is normal. Left Ventricular Outflow Tract Name Value Normal LVOT Doppler LVOT Peak Gradient 4 mmHg LVOT Mean Gradient 2 mmHg LVOT VTI 21 cm LVOT VTI/AV VTI Ratio 0.8 Pulmonic Valve Name Value Normal RVOT Doppler RVOT Peak Gradient 3 mmHg PV Doppler PV Peak Gradient 5 mmHg Mitral Valve Name Value Normal MV Doppler MV Decel Gibson 412 cm/s2 MV PHT 55 ms MV Area (PHT) 4.0 cm2 4.0-5.0 MV Diastolic Function MV E Peak Velocity 78 cm/s MV A Peak Velocity 71 cm/s MV E/A 1.1 MV Decel Time 189 ms MV Annular TDI MV E/e' (Septal) 12.4 <=8.0 MV E/e' (Lateral) 11.0 <=8.0 MV E/e' (Average) 11.7 Tricuspid Valve Name Value Normal TV Regurgitation Doppler TR Peak Velocity 239 cm/s TR Peak Gradient 23 mmHg Estimated PAP/RSVP RA Pressure 5 mmHg <=5 PA Systolic Pressure 28 mmHg <36 RV Systolic Pressure 28 mmHg <36 Aorta Name Value Normal Ascending Aorta Ao Root Diameter (MM) 2.8 cm Ao Root Diam Index (MM) 1.2 cm/m2 Aortic Valve Name Value Normal AV Doppler AV Peak Velocity 146 cm/s AV Peak Gradient 9 mmHg AV Mean Gradient 4 mmHg AV VTI 25 cm Ventricles Name Value Normal LV Dimensions 2D/MM IVS Diastolic Thickness (2D) 0.7 cm 0.6-1.0 LVID Diastole (2D) 4.7 cm 3.8-5.2 LVIW Diastolic Thickness (2D) 0.8 cm 0.6-0.9 LVID Systole (2D) 3.3 cm 2.2-3.5 LV Mass (2D Cubed) 115.09 g 67.00-162.00 LV Mass Index (2D Cubed) 48 g/m2 43-95 Relative Wall Thickness (2D) 0.34 LV Fractional Shortening/Ejection Fraction 2D/MM LV Fractional Shortening (2D) 29 % 27-45 LV EF (2D Teichalfredoz) 56 % 54-74 LV Diastolic Volume (4C MOD) 90 ml LV EF (4C MOD) 70 % LV Diastolic Volume (2C MOD) 101 ml LV EF (2C MOD) 74 % LV Diastolic Volume (BP MOD) 98 ml 46-106 LV Diastolic Volume Index (BP MOD) 41 ml/m2 29-61 LV Systolic Volume (BP MOD) 27 ml 14-42 LV Systolic Volume Index (BP MOD) 11 ml/m2 8-24 LV EF (BP MOD) 73 % 54-74 LV Diastolic Length (4C) 7.9 cm LV Systolic Length (4C) 6.4 cm LV Stroke Volume (4C MOD) 63 ml Atria Name Value Normal LA Dimensions LA Dimension (MM) 4.0 cm 2.7-3.8 LA Volume (4C A-L) 61 ml LA Volume (BP A-L) 59 ml RA Dimensions RA Area (4C) 15.2 cm2 <=18.0 Report Signatures
--- NOTE | ~2024-11-19 | CT_ITS ---
Non-contrast Head CT History: Right-sided weakness COMPARISON: 08/24/2024 Technique: Axial non-contrast imaging of the brain was performed. Dose reduction technique was used on this scan by utilizing automated exposure control and iterative reconstruction technique. The dose -length product (DLP) was 681.00 mGy-cm. Findings: There is no evidence of intracranial hemorrhage, mass lesion, or acute infarct. Stable mil dly asymmetric right-sided basal ganglia calcification. Brain parenchyma appears otherwise normal. T he ventricles and subarachnoid spaces are normal in size. The calvarium appears normal. The visuali zed paranasal sinuses and mastoid air cells are clear. Impression: No significant abnormality seen. Reviewed, dictated and finalized at location . Impression: No significant abnormality seen.
--- NOTE | ~2024-11-19 | MR_ITS ---
EXAMINATION: MR brain/brain stem wo/w con DATE: 11/19/2024 12:24 INDICATION: Right-sided weakness TECHNIQUE: Magnetic resonance imaging (MRI) of the brain and brainstem was performed without and with 20 mL ProHance intravenous contrast. Sequences included sagittal and axial T1-weighted SE, axial dif fusion-weighted FS SE, axial T2*-weighted GRE, axial T2-weighted FLAIR, and axial T2-weighted FSE. Po stcontrast axial and coronal T1-weighted SE was obtained. Apparent diffusion coefficient (ADC) maps w ere created. COMPARISON: Head CT and CT angiogram dated 11/19/2024 FINDINGS: There are no areas of restricted diffusion to suggest acute infarction. No intracranial hemorrhage or abnormal intracranial mass lesion. There are few scattered small foci of nonspecific increased T2-we ighted signal intensity in the cerebral white matter, predominantly involving the deep and periventri cular white matter which within normal limits for age and likely sequela of chronic small vessel isch emic disease.. There are no intraparenchymal signal abnormalities seen on the other pulse sequences. The ventricles are symmetric and normal in size. There are no abnormal extra-axial fluid collections. Flow voids are seen in the cerebral arteries on the T2-weighted sequences consistent with their expe cted patency. Mild mucoperiosteal thickening the bilateral maxillary and ethmoid sinuses. Visualized orbits and soft tissues are unremarkable. There are no areas of abnormal enhancement on the post cont rast images. IMPRESSION: 1. Normal for age brain. No acute intracranial process or abnormally enhancing brain lesions. Reviewed, dictated and finalized at location A.
--- NOTE | ~2024-11-19 | XR_ITS ---
Portable chest x-ray Comparison: 08/24/2024 Clinical History: Right-sided weakness Findings: Lungs are clear, without focal consolidation or pleural effusion. Cardiomediastinal silho uette is stable. Bones and soft tissues demonstrate stable cervical spine fixation hardware. Impression: Clear lungs. Reviewed, dictated and finalized at location . Impression: Clear lungs.
--- NOTE | ~2024-11-19 | CT_ITS ---
CT ANGIOGRAM NECK AND HEAD History: Right-sided weakness. Technique: Serial spiral axial images through the head and neck were obtained during arterial phase I V injection of 100 cc of Omnipaque 350. 3-D postprocessing and MIP images were then reconstructed on the remote workstation. Dose reduction technique was used on this scan by utilizing automated exposur e control and iterative reconstruction technique. The dose-length product (DLP) was 1193.12 mGy-cm. CTA neck findings: Bilateral vertebral arteries are patent. Bilateral common carotid, internal carot id, and external carotid arteries are patent. No large vessel occlusion or stenosis. No aneurysm. The proximal right internal carotid artery demonstrates 0% stenosis relative to the normal distal artery lumen diameter. The proximal left internal carotid artery demonstrates 0% stenosis relative to the n ormal distal artery lumen diameter. CTA head findings: Distal vertebral arteries, basilar artery, and posterior cerebral arteries are pat ent. Distal internal carotid arteries, middle cerebral arteries, and anterior cerebral arteries are p atent. No large vessel occlusion or stenosis. No aneurysm. Impression: No significant abnormality. Reviewed, dictated and finalized at location . Impression: No significant abnormality.
--- OUTSIDE RECORDS SUMMARY | 2024-11-19 00:45 | XMS_ITS | Clinical Summary ---
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 Indications: Acute Pain < 3 Day Supply 10 tablet 11/23/2023 Active methylPREDNISol one, BRUNILDA, (MEDROL DOSEPAK) 4 MG tablet 6 [...] Screening with HPV 02/10/2000 Mammogram Screening 2010 Pneumococcal Vaccine: 50+ Years (1 of 1 - PCV) 02/10/2020 Zoster Vaccines (2 of 2) 07/08/2021 05/13/2021 DTaP, Tdap and Td Vaccines (2 - Td or Tdap) 11/07/2022 11/07/2012 COVID-19 Vaccine ( - season) 2024 05/21/2022, 06/21/2021, 11/18/2020, Additional history exists Meningococcal B Vaccine Aged Out No l onger eligible based on patient's age to complete this topic Meningococcal Vaccine Aged Out No ev tita eligible based on patient's age to complete this topic RSV Immunizations Under 20 Months Aged Out No longer eligible based on patient's age to complete this topic Insurance MEDICAID [employer] Care Teams Farm Equipment Engine Mechanic Relationship Specialty Start Date End Date None, Provider, PCP - General UNKNOWN PHYSICIAN SPECIALTY 11/23/23
--- OUTSIDE RECORDS SUMMARY | 2024-11-19 00:45 | XMS_ITS | Clinical Summary ---
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
--- OUTSIDE RECORDS SUMMARY | 2024-11-19 00:45 | XMS_ITS | Clinical Summary ---
Author Organization [facility] Address [address] [place] [address] Care Team Providers Care Monitoring Coordinator Name Role Phone Rakan Patel MD Primary Care Provider [phone] Source Comments [facility] center Affiliates and Associated Physician Practices is amultiple site organization consisting of ambulatory clinics and hospital sitesin [place], [place], [place] and [place]. This disclosure is being madepursuant to the Care Everywhere program and may not contain all information available regarding this patient. Last updated 18.[facility] [employer] Allergies Active Allergy Reactions Criticality Noted Date Comments Vancomycin Anaphylaxis High 08/24/2024 Medications * Be aware that medications may not be up to date on this document. Alwaysverify current medications with the patient. buPROPion XL 24hr (Wellbutrin-XL) 150 MG tablet Take 1 (one) tablet by mouth once daily 07/28/2024 Active vitamin D3 (Cholecalcifero l) 125 MCG (5000 UT) capsule Take 1 (one) capsule by mouth once daily Active clindamycin (Cleocin) 150 MG capsule TAKE 2 CAPSULES BY MOUTH EVERY 6 HOURS FOR 2 DAYS THEN TAKE 1 CAPSULE EVERY 6 HOURS UNTIL ALL TAKEN 08/16/2024 Active Cyanocobalamin 2000 MCG Active ECHINACEA PO Take by mouth Act beverly fexofenadine (Ranjana) 180 MG tablet Take 1 (one) tablet by mouth once daily Active Veozah 45 MG tablet Take 1 (one) tablet by mouth once daily 07/29/2024 Active gabapentin (Neurontin) 600 MG tablet Take 1 (one) tablet by mouth 4 times daily 05/25/2024 Active GINKGO BILOBA EXTRACT PO Take by mouth Activ e glucosamine-cho ndroitin 500-400 MG tablet Take 1 (one) tablet by mouth 3 times daily Active guaiFENesin ER 12hr (Mucinex) 600 MG tablet Take 2 (two) tablets by mouth 2 times daily Active meloxicam (Mobic) 15 MG tablet 07/28/2024 Active phentermine (Ionamine) 30 MG capsule Take 1 (one) capsule by mouth once daily 05/25/2024 Active valACYclovir (Valtrex) 500 MG tablet Take 1 (one) tablet by mouth once daily 07/28/2024 Active acetaminophen-c odeine (Tylenol #3) 300-30 MG tablet TAKE 1-2 TABLETS BY MOUTH EVERY 4-6 HOURS NEEDED 08/16/2024 Active pantoprazole EC (Protonix) 40 MG tablet Take 1 (one) tablet by mouth once daily Active montelukast (Singulair) 10 MG tablet Take 1 (one) tablet by mouth at bedtime Active atorvastatin (Lipitor) 40 MG tablet Take 1 (one) tablet by mouth at bedtime for 90 days 30 tablet 2 08/25/2024 11/24/19 25 Active amLODIPine (Norvasc) 5 MG tablet Take 1 (one) tablet by mouth once daily for 90 days 30 tablet 2 08/26/2024 11/25/19 25 Active Active Problems Problem Noted Date Diagnosed Date Right sided weakness 08/24/2024 GERD (gastroesophageal reflux disease) Anxiety 08/24/2024 Pulmonary nodule 08/24/2024 History of bunionectomy 08/24/2024 S/P bilateral breast reduction 08/24/2024 H/O total hysterectomy 08/24/2024 Encounter for monitoring thrombolytic therapy Carpal tunnel syndrome of left wrist 10/12/2021 Chronic left shoulder pain 10/12/2021 History of cervical spinal surgery 06/07/2021 Cervical disc herniation 04/28/2021 Overview (08/24/2024): Added automatically from request for surgery [id number] 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 Overview (08/24/2024): C6-7 Hoarseness 08/13/2014 Encounters Date Type Department Care Team Description 08/26/2024 6:52 PM SENIOR INFORMATION SECURITY ANALYST - 08/26/2024 8:50 PM SENIOR INFORMATION SECURITY ANALYST Emergency [facility] [address] [place] [address] Headache, unspecified headache type Discharge Disposition: Left Against Medical Advice/Discontinued Care 08/26/2024 Travel 08/24/2024 4:19 AM SENIOR INFORMATION SECURITY ANALYST - 08/25/2024 2:34 PM SENIOR INFORMATION SECURITY ANALYST Hospital Encounter [facility] ICU [address] [place] [address] Marcos Lucio MD Neurology Discharge Disposition: Home or Self Care 08/24/2024 Travel from Last 3 Months Social History Tobacco Use Types Packs/Day Years Used Date Smoking Tobacco: Former Cigarettes Smokeless Tobacco: Never Tobacco Cessation:Counseling Given: Not Answered AUDIT-C Answer Date Recorded Q1: How often do you have a drink containing alc ohol? Monthly or less 08/24/2024 Q2: How many drinks containi ng alcohol do you have on a typical day when you are drinking? 1 or 2 08/24/2024 Q3: How often do you have si x or more drinks on one occasion? Less than monthly 08/24/2024 Overall Financial Resource Strain (CARDIA) Answe r Date Recorded How hard is it for you to pa y for the very basics like food, housing, medical care, and heating? Not hard at all 08/24/2024 PHQ-2 Answer Date Recorded Patient Health Questionnaire-2 Score 0 08/25/2024 [facility] Occupat ional Health - Occupational Stress Questionnaire Answer Date Recorded Do you feel stress - tense, restless, nervous, or anxious, or unable to sleep at night because your mind is troubled all the time - these days? Not at all 08/24/2024 Hunger Vital Sign Answer Date Recorded Within the past 12 months, y ou worried that your food would run out before you got the money to buy more. Never true 08/24/19 25 Within the past 12 months, t he food you bought just didn't last and you didn't have money to get more. Never true 08/24/2024 PRAPARE - Transportation Answer Date Re corded In the past 12 months, has l ack of transportation kept you from medical appointments or from getting medications? No 02/2025 In the past 12 months, has l ack of transportation kept you from meetings, work, or from getting things needed for daily living? No 08/24/2024 Housing Stability Vital Sign Answer Guillaume e Recorded In the last 12 months, was t here a time when you were not able to pay the mortgage or rent on time? No 08/24/2024 In the past 12 months, how m any times have you moved where you were living? 0 08/24/2024 At any time in the past 12 m [facility], were you homeless or living in a fpc (including now)? No 08/24/2024 Comments Unknown Sex and Gender Information Value Date Recorded Sex Assigned at Not on file Legal Sex Female 4:56 AM SENIOR INFORMATION SECURITY ANALYST Gender Identity Not on file Sexual Orientation Not on file Last Filed Vital Signs Vital Sign Reading Time Taken Comments Blood Pressure 136/84 08/26/2024 2:00 PM SENIOR INFORMATION SECURITY ANALYST Pulse 75 08/26/2024 2:00 PM SENIOR INFORMATION SECURITY ANALYST Temperature 37.1 C (98.7 F) 08/26/2024 2:00 PM SENIOR INFORMATION SECURITY ANALYST Respiratory Rate 18 08/26/2024 2:00 PM SENIOR INFORMATION SECURITY ANALYST Oxygen Saturation 100% 08/26/2024 2:00 PM SENIOR INFORMATION SECURITY ANALYST Inhaled Oxygen Concentration - - Weight 108.9 kg (240 lb) 08/26/2024 2:00 PM SENIOR INFORMATION SECURITY ANALYST Height 177.8 cm (5' 10 ) 08/26/2024 2:00 PM SENIOR INFORMATION SECURITY ANALYST Body Mass Index 34.44 08/26/2024 2:00 PM SENIOR INFORMATION SECURITY ANALYST Plan of Treatment Upcoming Encounters Date Type Department Care Team (Late st Contact Info) Description 01/03/2025 10:00 AM CDT Office Visit [facility] - Neurology [address] [place] [address] Cheryl Hatch MD [address] [place] [address] Health Maintenance Due Date Last Done Comments COLOGUARD (AGES 45-75) - COLON CA SCREENING 1970 COLON MONITORING 1970 COLONOSCOPY - COLON CA SCREENING 1970 CT COLONOGRAPHY - COLON CA SCREENING 1970 Colorectal Cancer Screening 1970 FIT - COLON CA SCREENING 1970 FLEX SIG - COLON CA SCREENING 1970 MAMMOGRAM 1970 PAP SMEAR 1970 HIV SCREENING 1985 HEPATITIS C SCREENING 02/05/1988 DTAP/TDAP/TD VACCINES (1 - Tdap) 1989 HEPATITIS B VACCINE (1 of 3 - 19+ 3-dose series) 1989 PNEUMOCOCCAL VACCINE 50+ (1 of 1 - PCV) 02/10/2020 ZOSTER VACCINE (1 of 2) 02/10/2020 COVID-19 VACCINE (5 - season) 2024 05/21/2022, 06/21/2021, 11/18/2020, Additional history exists MEDICARE AWV CALENDAR YEAR 2024 INFLUENZA VACCINE (Season Ended) 2025 05/21/2022, 05/17/2021, 05/13/2021, Additional history exists DEPRESSION SCREENING Completed 08/24/2024 HIB VACCINE Aged Out No longer eligi ble based on patient's age to complete this topic HPV VACCINE Aged Out No longer eligi ble based on patient's age to complete this topic MENINGOCOCCAL (Group B) VACCINE SHARED DECISION-MAKING Aged Out No longer eligible based on patient's age to complete this topic MENINGOCOCCAL GROUPS A/C/Y/W VACCINE Aged Out No longer eligible based on patient's age to complete this topic Procedures Procedure Name Priority Date/Time Associated Diagnosis Comments CT CERVICAL SPINE WO CONTRAST STAT 08/26/2024 4:36 PM SENIOR INFORMATION SECURITY ANALYST Headache, unspecified headache type CT HEAD WO CONTRAST STAT 08/26/2024 4 :36 PM SENIOR INFORMATION SECURITY ANALYST Headache, unspecified headache type ERYTHROCYTE SEDIMENTATION RATE STAT 08/26/2024 4:06 PM SENIOR INFORMATION SECURITY ANALYST C-REACTIVE PROTEIN GIORGIO 08/26/2024 4: 06 PM SENIOR INFORMATION SECURITY ANALYST COMPREHENSIVE METABOLIC PANEL STAT 08/26/2024 4:06 PM SENIOR INFORMATION SECURITY ANALYST CBC W AUTO DIFFERENTIAL STAT 08/26/2024 4:06 PM SENIOR INFORMATION SECURITY ANALYST CT HEAD WO CONTRAST Routine 08/25/2024 3 :40 AM SENIOR INFORMATION SECURITY ANALYST Right sided weakness CBC W/O DIFFERENTIAL Routine 08/25/2024 1:37 AM SENIOR INFORMATION SECURITY ANALYST BASIC METABOLIC PANEL (CALCIUM TOTAL) Routine 08/25/2024 1:37 AM SENIOR INFORMATION SECURITY ANALYST GLUCOSE - POINT OF CARE Routine 08/25/2024 1:35 AM SENIOR INFORMATION SECURITY ANALYST GLUCOSE - POINT OF CARE Routine 08/24/2024 5:39 PM SENIOR INFORMATION SECURITY ANALYST MRI BRAIN WO CONTRAST Routine 08/24/2024 5:04 PM SENIOR INFORMATION SECURITY ANALYST Right sided weakness GLUCOSE - POINT OF CARE Routine 08/24/2024 12:33 PM SENIOR INFORMATION SECURITY ANALYST XR CHEST 1VW PORTABLE Routine 08/24/2024 9:11 AM SENIOR INFORMATION SECURITY ANALYST Right sided weakness OT EVAL AND TREAT Routine 08/24/2024 8:3 8 AM SENIOR INFORMATION SECURITY ANALYST TROPONIN-I HIGH SENSITIVE REFLEX 1HOUR Timed 08/24/2024 7:57 AM SENIOR INFORMATION SECURITY ANALYST LIPID PROFILE Routine 08/24/2024 6:19 AM SENIOR INFORMATION SECURITY ANALYST TROPONIN-I HIGH SENSITIVE BASELINE + 1HR STAT 08/24/2024 6:19 AM SENIOR INFORMATION SECURITY ANALYST OT EVAL AND TREAT Routine 08/24/2024 6:1 5 AM SENIOR INFORMATION SECURITY ANALYST EKG 12-LEAD STAT 08/24/2024 4:50 AM SENIOR INFORMATION SECURITY ANALYST Right sided weakness BLOOD TYPE VERIFICATION STAT 08/24/2024 4:31 AM SENIOR INFORMATION SECURITY ANALYST TYPE + SCREEN PANEL STAT 08/24/2024 4 :31 AM SENIOR INFORMATION SECURITY ANALYST HEMOGLOBIN A1C Add on 08/24/2024 4:31 AM SENIOR INFORMATION SECURITY ANALYST PT-INR [facility] STAT 08/24/2024 4:31 AM SENIOR INFORMATION SECURITY ANALYST COMPREHENSIVE METABOLIC PANEL STAT 08/24/2024 4:31 AM SENIOR INFORMATION SECURITY ANALYST CBC W AUTO DIFFERENTIAL STAT 08/24/2024 4:31 AM SENIOR INFORMATION SECURITY ANALYST GLUCOSE - POINT OF CARE Routine 08/24/2024 4:27 AM SENIOR INFORMATION SECURITY ANALYST from Last 3 Months Results * CT Cervical Spine Wo Contrast (08/26/2024 4:36 PM SENIOR INFORMATION SECURITY ANALYST) Anatomical Region Laterality Modality Spine Computed Tomogra phy 08/26/2024 4:50 PM SENIOR INFORMATION SECURITY ANALYST Impressions 08/26/2024 5:51 PM SENIOR INFORMATION SECURITY ANALYST IMPRESSION: 1.No acute intracranial process interval changes. 2.Uncomplicated postsurgical changes of the cervical spine C5-6 without evidence of interbody nonunion. 3.No evidence of acute fracture in the cervical spine. 4.Age indeterminate right eccentric posterior disc bulging at C3-C4 and concentric posterior disc bulging at C4-C5 are not associated with cord compression or significant spinal stenosis. The report is dictated by Tu Lerner DO, (radiology director) INathan MD have personally reviewed and interpreted this examination/study. > Interpreting Provider: Nathan Grey MD on 08/26/2024 5:51 PM Narrative 08/26/2024 5:51 PM SENIOR INFORMATION SECURITY ANALYST PROCEDURE: CT HEAD WO CONTRAST, CT CERVICAL SPINE WO CONTRAST, DATE/TIME OF EXAM: 08/26/2024 4:38 PM, LOCATION [facility] INDICATION: R51.9: Headache, unspecified headache type ADDITIONAL CLINICAL INFORMATION: Ordering Provider Reason For Exam: post TPA SANTOS, ro bleed (accession [id number]), ro fx, misalignment, DDD (accession [id number]) Technologist Note: Additional: EXAMINATION: 1. CT OF THE HEAD WITHOUT CONTRAST 2. CT OF THE CERVICAL SPINE WITHOUT CONTRAST HISTORY: R51.9: Headache, unspecified headache type COMPARISON: CT head without contrast, 08/25/2024 at 3:34 AM TECHNIQUE: CT of the head and cervical spine were performed without contrast according to standard protocol. The CT head study was subjected to viz. ICH for detection of intracranial hemorrhage. FINDINGS: HEAD: No acute intra- or extra-axial hemorrhage is identified. The basilar cisterns are patent. No mass effect or midline shift is seen. The elliott-white matter differentiation is normal. The ventricles are of normal size, shape, and morphology. No visible white matter changes, contusion or interval infarction is identified The orbits and orbital contents are normal. The paranasal sinuses, and mastoids air cells are clear . No acute fracture is identified. CERVICAL SPINE: The patient is status post anterior cervical discectomy and fusion at the C5-C7 level with a solid interbody osseous fusion achieved at these levels. The vertebral body screws at C5 and C7 and the ventral plate are uncomplicated. The uncovertebral joints and partially the vessels are also fused at this level. There is straightening of cervical lordosis. No fracture, spondylolisthesis, perched facets or suspicious intrinsic bony lesion is identified. Other than middle atlantoaxial joint osteoarthritis, the craniocervical junction appears normal. There is mild degenerative disc disease outside the surgical levels. Right eccentric posterior disc bulging at C3-C4 effaces the ventral subarachnoid space right paracentral region and abuts the cord, but is not associated with significant spinal stenosis. Concentric posterior disc bulging at C4-C5 effaces the ventral subarachnoid space and abuts the cord, but is not associated with significant spinal stenosis or compression of the cord. No other posterior disc abnormality, blood in central canal or central canal stenosis is seen. There is severe right facet osteoarthritis at C2-C3 and varying degrees of mild facet osteoarthritis of other facets outside the surgical levels. The remainder of the uncovertebral joints appear normal. No significant neural foraminal stenosis is seen. No soft tissue abnormality is identified. The imaged lung apices are clear. Procedure Note Nathan Grey MD - 08/26/2024 PROCEDURE: CT HEAD WO CONTRAST, CT CERVICAL SPINE WO CONTRAST,DATE/TIME OF EXAM: 08/26/2024 4:38 PM, LOCATION [facility] INDICATION: R51.9: Headache, unspecified headache type ADDITIONAL CLINICAL INFORMATION: Ordering Provider Reason For Exam: post TPA SANTOS, ro bleed (accession [id number]), ro fx, misalignment, DDD (accession [id number]) Technologist Note: Additional: EXAMINATION: 1. CT OF THE HEAD WITHOUT CONTRAST 2. CT OF THE CERVICAL SPINE WITHOUT CONTRAST HISTORY: R51.9: Headache, unspecified headache type COMPARISON: CT head without contrast, 08/25/2024 at 3:34 AM TECHNIQUE: CT of the head and cervical spine were performed without contrast according to standard protocol. The CT head study was subjectedto viz. ICH for detection of intracranial hemorrhage. FINDINGS: HEAD: No acute intra- or extra-axial hemorrhage is identified. The basilar cisterns are patent. No mass effect or midline shift is seen. The elliott-white matter differentiation is normal. The ventricles are of normal size, shape, and morphology. No visiblewhite matter changes, contusion or interval infarction is identified The orbits and orbital contents are normal. The paranasal sinuses, and mastoids air cells are clear . No acute fracture is identified. CERVICAL SPINE: The patient is status post anterior cervical discectomy and fusion atthe C5-C7 level with a solid interbody osseous fusion achieved at theselevels. The vertebral body screws at C5 and C7 and the ventral plate are uncomplicated. The uncovertebral joints and partially the vessels arealso fused at this level. There is straightening of cervical lordosis. No fracture, spondylolisthesis, perched facets or suspicious intrinsic bony lesion is identified. Other than middle atlantoaxial joint osteoarthritis, the craniocervical junction appears normal. There is mild degenerative disc disease outside the surgical levels. Right eccentric posterior disc bulging at C3-C4 effaces the ventral subarachnoid space right paracentral region and abuts the cord, but isnot associated with significant spinal stenosis. Concentric posterior disc bulging at C4-C5 effaces the ventral subarachnoid space and abuts thecord, but is not associated with significant spinal stenosis or compression of the cord. No other posterior disc abnormality, blood in central canal or central canal stenosis is seen. 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 No significantneural foraminal stenosis is seen. No soft tissue abnormality is identified.The imaged lung apices are clear. IMPRESSION: 1.No acute intracranial process interval changes. 2.Uncomplicated postsurgical changes of the cervical spine C5-6 without evidence of interbody nonunion. 3.No evidence of acute fracture in the cervical spine. 4.Age indeterminate right eccentric posterior disc bulging at C3-C4 and concentric posterior disc bulging at C4-C5 are not associated with cord compression or significant spinal stenosis. The report is dictated by Tu Lerner DO, (radiology director) Nathan Huitron MD have personally reviewed and interpreted this examination/study. > Interpreting Provider: Nathan Grey MD on 08/26/2024 5:51 PM us Marcy Moody Javi PA-Ana CT ORDERABLES Final Resul t * CT HEAD WO CONTRAST (08/26/2024 4:36 PM SENIOR INFORMATION SECURITY ANALYST) Only the most recent of2 resultswithin the time period is included. Anatomical Region Laterality Modality Head Computed Tomogra phy 08/26/2024 4:50 PM SENIOR INFORMATION SECURITY ANALYST Impressions 08/26/2024 5:51 PM SENIOR INFORMATION SECURITY ANALYST IMPRESSION: 1.No acute intracranial process interval changes. 2.Uncomplicated postsurgical changes of the cervical spine C5-6 without evidence of interbody nonunion. 3.No evidence of acute fracture in the cervical spine. 4.Age indeterminate right eccentric posterior disc bulging at C3-C4 and concentric posterior disc bulging at C4-C5 are not associated with cord compression or significant spinal stenosis. The report is dictated by Tu Lerner DO, (radiology director) Nathan Huitron MD have personally reviewed and interpreted this examination/study. > Interpreting Provider: Nathan Grey MD on 08/26/2024 5:51 PM Narrative 08/26/2024 5:51 PM SENIOR INFORMATION SECURITY ANALYST PROCEDURE: CT HEAD WO CONTRAST, CT CERVICAL SPINE WO CONTRAST, DATE/TIME OF EXAM: 08/26/2024 4:38 PM, LOCATION [facility] INDICATION: R51.9: Headache, unspecified headache type ADDITIONAL CLINICAL INFORMATION: Ordering Provider Reason For Exam: post TPA SANTOS, ro bleed (accession [id number]), ro fx, misalignment, DDD (accession [id number]) Technologist Note: Additional: EXAMINATION: 1. CT OF THE HEAD WITHOUT CONTRAST 2. CT OF THE CERVICAL SPINE WITHOUT CONTRAST HISTORY: R51.9: Headache, unspecified headache type COMPARISON: CT head without contrast, 08/25/2024 at 3:34 AM TECHNIQUE: CT of the head and cervical spine were performed without contrast according to standard protocol. The CT head study was subjected to viz. ICH for detection of intracranial hemorrhage. FINDINGS: HEAD: No acute intra- or extra-axial hemorrhage is identified. The basilar cisterns are patent. No mass effect or midline shift is seen. The elliott-white matter differentiation is normal. The ventricles are of normal size, shape, and morphology. No visible white matter changes, contusion or interval infarction is identified The orbits and orbital contents are normal. The paranasal sinuses, and mastoids air cells are clear . No acute fracture is identified. CERVICAL SPINE: The patient is status post anterior cervical discectomy and fusion at the C5-C7 level with a solid interbody osseous fusion achieved at these levels. The vertebral body screws at C5 and C7 and the ventral plate are uncomplicated. The uncovertebral joints and partially the vessels are also fused at this level. There is straightening of cervical lordosis. No fracture, spondylolisthesis, perched facets or suspicious intrinsic bony lesion is identified. Other than middle atlantoaxial joint osteoarthritis, the craniocervical junction appears normal. There is mild degenerative disc disease outside the surgical levels. Right eccentric posterior disc bulging at C3-C4 effaces the ventral subarachnoid space right paracentral region and abuts the cord, but is not associated with significant spinal stenosis. Concentric posterior disc bulging at C4-C5 effaces the ventral subarachnoid space and abuts the cord, but is not associated with significant spinal stenosis or compression of the cord. No other posterior disc abnormality, blood in central canal or central canal stenosis is seen. There is severe right facet osteoarthritis at C2-C3 and varying degrees of mild facet osteoarthritis of other facets outside the surgical levels. The remainder of the uncovertebral joints appear normal. No significant neural foraminal stenosis is seen. No soft tissue abnormality is identified. The imaged lung apices are clear. Procedure Note Nathan Grey MD - 08/26/2024 PROCEDURE: CT HEAD WO CONTRAST, CT CERVICAL SPINE WO CONTRAST,DATE/TIME OF EXAM: 08/26/2024 4:38 PM, LOCATION [facility] INDICATION: R51.9: Headache, unspecified headache type ADDITIONAL CLINICAL INFORMATION: Ordering Provider Reason For Exam: post TPA SANTOS, ro bleed (accession [id number]), ro fx, misalignment, DDD (accession [id number]) Technologist Note: Additional: EXAMINATION: 1. CT OF THE HEAD WITHOUT CONTRAST 2. CT OF THE CERVICAL SPINE WITHOUT CONTRAST HISTORY: R51.9: Headache, unspecified headache type COMPARISON: CT head without contrast, 08/25/2024 at 3:34 AM TECHNIQUE: CT of the head and cervical spine were performed without contrast according to standard protocol. The CT head study was subjectedto viz. ICH for detection of intracranial hemorrhage. FINDINGS: HEAD: No acute intra- or extra-axial hemorrhage is identified. The basilar cisterns are patent. No mass effect or midline shift is seen. The elliott-white matter differentiation is normal. The ventricles are of normal size, shape, and morphology. No visiblewhite matter changes, contusion or interval infarction is identified The orbits and orbital contents are normal. The paranasal sinuses, and mastoids air cells are clear . No acute fracture is identified. CERVICAL SPINE: The patient is status post anterior cervical discectomy and fusion atthe C5-C7 level with a solid interbody osseous fusion achieved at theselevels. The vertebral body screws at C5 and C7 and the ventral plate are uncomplicated. The uncovertebral joints and partially the vessels arealso fused at this level. There is straightening of cervical lordosis. No fracture, spondylolisthesis, perched facets or suspicious intrinsic bony lesion is identified. Other than middle atlantoaxial joint osteoarthritis, the craniocervical junction appears normal. There is mild degenerative disc disease outside the surgical levels. Right eccentric posterior disc bulging at C3-C4 effaces the ventral subarachnoid space right paracentral region and abuts the cord, but isnot associated with significant spinal stenosis. Concentric posterior disc bulging at C4-C5 effaces the ventral subarachnoid space and abuts thecord, but is not associated with significant spinal stenosis or compression of the cord. No other posterior disc abnormality, blood in central canal or central canal stenosis is seen. 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 No significantneural foraminal stenosis is seen. No soft tissue abnormality is identified.The imaged lung apices are clear. IMPRESSION: 1.No acute intracranial process interval changes. 2.Uncomplicated postsurgical changes of the cervical spine C5-6 without evidence of interbody nonunion. 3.No evidence of acute fracture in the cervical spine. 4.Age indeterminate right eccentric posterior disc bulging at C3-C4 and concentric posterior disc bulging at C4-C5 are not associated with cord compression or significant spinal stenosis. The report is dictated by Tu Lerner DO, (radiology director) INathan MD have personally reviewed and interpreted this examination/study. > Interpreting Provider: Nathan Grey MD on 08/26/2024 5:51 PM us Marcy Caldwell PA-C CT ORDERABLES Final Resul t * (ABNORMAL) C-REACTIVE PROTEIN (08/26/2024 4:06 PM SENIOR INFORMATION SECURITY ANALYST) Pathologist [facility] C-Reactive Protein 1.7(H) <=0.5 mg/dL 08/26/2024 4:55 PM SENIOR INFORMATION SECURITY ANALYST [facility] Blood BLOOD SPECIMEN / Unknown Venipuncture / Unknown 08/26/2024 4:06 PM SENIOR INFORMATION SECURITY ANALYST 08/26/2024 4:29 PM SENIOR INFORMATION SECURITY ANALYST us Marcy CONNOLLYC LAB - CHEMISTRY ORDERABLES Final Result [address] [address], [facility] [phone] * (ABNORMAL) ERYTHROCYTE SEDIMENTATION RATE (08/26/2024 4:06 PM SENIOR INFORMATION SECURITY ANALYST) [facility] Erythrocyte Sedimentation Rate Westergren 63(H) 0 - 30 MM/HR 08/26/2024 4:52 PM SENIOR INFORMATION SECURITY ANALYST [facility] Blood BLOOD SPECIMEN / Unknown Venipuncture / Unknown 08/26/2024 4:06 PM SENIOR INFORMATION SECURITY ANALYST 08/26/2024 4:28 PM SENIOR INFORMATION SECURITY ANALYST us Marcy DOUGLAS-C LAB - HEMATOLOGY ORDERABLES Final Result [address] [address], [place] [phone] * CBC W AUTO DIFFERENTIAL (08/26/2024 4:06 PM SENIOR INFORMATION SECURITY ANALYST) Only the most recent of2 resultswithin the time period is included. Pathologist [facility] WBC 10.5 4.0 - 10.7 x10E9/L 08/26/2024 4:34 PM [facility] RBC Count 4.43 3.90 - 5.20 x10E12/L 08/26/2024 4:34 PM [facility] Hemoglobin 13.0 11.9 - 15.8 g/dL 08/26/2024 4:34 PM [facility] Hematocrit 39.9 34.8 - 46.1 % 08/26/2024 4:34 PM [facility] MCV 90.1 80.0 - 98.0 fL 08/26/2024 4:34 PM [facility] MCH 29.3 26.7 - 33.6 pg 08/26/2024 4:34 PM [facility] MCHC 32.6 31.7 - 36.3 g/dL 08/26/2024 4:34 PM [facility] RDW-CV 13.9 11.3 - 14.8 % 08/26/2024 4:34 PM [facility] Platelet Count 261 150 - 420 x10E9/L 08/26/2024 4:34 PM [facility] MPV 10.3 7.8 - 11.4 fL 08/26/2024 4:34 PM [facility] Neutrophil % 63.7 41.0 - 74.0 % 08/26/2024 4:34 PM [facility] Lymphocyte % 28.0 17.0 - 47.0 % 08/26/2024 4:34 PM [facility] Monocyte % 6.6 3.0 - 11.0 % 08/26/2024 4:34 PM [facility] Eosinophil % 1.1 0.0 - 7.0 % 08/26/2024 4:34 PM [facility] Basophil % 0.2 0.0 - 1.6 % 08/26/2024 4:34 PM [facility] Immature Granulocytes % 0.4 0.0 - 1.0 % 08/26/2024 4:34 PM [facility] Neutrophil Absolute 6.67 1.60 - 7.50 x10E9/L 08/26/2024 4:34 PM [facility] Lymphocyte Absolute 2.93 1.00 - 4.40 x10E9/L 08/26/2024 4:34 PM [facility] Monocyte Absolute 0.69 0.15 - 1.00 x10E9/L 08/26/2024 4:34 PM [facility] Eosinophil Absolute 0.12 0.00 - 0.60 x10E9/L 08/26/2024 4:34 PM [facility] Basophil Absolute 0.02 0.00 - 0.13 x10E9/L 08/26/2024 4:34 PM [facility] Blood BLOOD SPECIMEN / Unknown Venipuncture / Unknown 08/26/2024 4:06 PM SENIOR INFORMATION SECURITY ANALYST 08/26/2024 4:28 PM SENIOR INFORMATION SECURITY ANALYST us Marcy Caldwell PA-C LAB - HEMATOLOGY ORDERABLES Final Result [facility] [address] [place] [address], [facility] [phone] * (ABNORMAL) COMPREHENSIVE METABOLIC PANEL (08/26/2024 4:06 PM SENIOR INFORMATION SECURITY ANALYST) Only the most recent of2 resultswithin the time period is included. BUN 15 7 - 26 mg/dL 08/26/2024 4:55 PM [facility] Creatinine 0.85 0.56 - 0.96 mg/dL 08/26/2024 4:55 PM [facility] Sodium 143 136 - 145 mmol/L 08/26/2024 4:55 PM [facility] Potassium 4.2 3.5 - 4.5 mmol/L 08/26/2024 4:55 PM [facility] Chloride 106 98 - 107 mmol/L 08/26/2024 4:55 PM [facility] CO2 27 22 - 29 mmol/L 08/26/2024 4:55 PM [facility] Glucose 79 70 - 99 mg/dL 08/26/2024 4:55 PM [facility] Calcium 9.6 8.4 - 10.2 mg/dL 08/26/2024 4:55 PM [facility] Protein Total 7.7 6.0 - 8.3 g/dL 08/26/2024 4:55 PM [facility] Albumin 4.2 3.4 - 5.0 g/dL 08/26/2024 4:55 PM [facility] Bilirubin Total 0.3 0.2 - 1.2 mg/dL 08/26/2024 4:55 PM [facility] Alkaline Phosphatase 109 40 - 150 U/L 08/26/2024 4:55 PM [facility] ALT 19 5 - 55 U/L 08/26/2024 4:55 PM [facility] AST 16 5 - 34 U/L 08/26/2024 4:55 PM [facility] Anion Gap 10 6 - 16 08/26/2024 4:55 PM [facility] BUN/Creatinine Ratio 18 7 - 23 08/26/2024 4:55 PM [facility] Osmolality Calculated 296(H) 275 - 295 mOsm/kg 08/26/2024 4:55 PM [facility] Albumin/Globulin Ratio 1.2 1.1 - 2.3 08/26/2024 4:55 PM [facility] eGFR by CKD-EPI 81(L) >=90 mL/min/1.7 3 m2 08/26/2024 4:55 PM [facility] Blood BLOOD SPECIMEN / Unknown Venipuncture / Unknown 08/26/2024 4:06 PM SENIOR INFORMATION SECURITY ANALYST 08/26/2024 4:29 PM SENIOR INFORMATION SECURITY ANALYST us Marcy Caldwell PA-C LAB - CHEMISTRY ORDERABLES Final Result Performing Organization Address [facility]/State/ZIP Co de Phone Number [address] [address] [phone] * (ABNORMAL) CBC W/O DIFFERENTIAL (08/25/2024 1:37 AM SENIOR INFORMATION SECURITY ANALYST) WBC 8.7 4.0 - 10.7 x10E9/L 08/25/2024 1:49 AM [facility] RBC Count 4.07 3.90 - 5.20 x10E12/L 08/25/2024 1:49 AM [facility] Hemoglobin 11.6(L) 11.9 - 15.8 g/dL 08/25/2024 1:49 AM [facility] Hematocrit 36.7 34.8 - 46.1 % 08/25/2024 1:49 AM [facility] MCV 90.2 80.0 - 98.0 fL 08/25/2024 1:49 AM [facility] MCH 28.5 26.7 - 33.6 pg 08/25/2024 1:49 AM [facility] MCHC 31.6(L) 31.7 - 36.3 g/dL 08/25/2024 1:49 AM [facility] RDW-CV 14.0 11.3 - 14.8 % 08/25/2024 1:49 AM [facility] Platelet Count 228 150 - 420 x10E9/L 08/25/2024 1:49 AM [facility] MPV 10.0 7.8 - 11.4 fL 08/25/2024 1:49 AM [facility] Blood BLOOD SPECIMEN / Unknown Venipuncture / Unknown 08/25/2024 1:37 AM SENIOR INFORMATION SECURITY ANALYST 08/25/2024 1:46 AM [facility] us Marcos Lucio MD LAB - HEMATOLOGY ORDERABLES Final Result [address] [address], [facility] [phone] * (ABNORMAL) BASIC METABOLIC PANEL (CALCIUM TOTAL) (08/25/2024 1:37 AM [facility]) BUN 16 7 - 26 mg/dL 08/25/2024 2:15 AM [facility] Creatinine 0.79 0.56 - 0.96 mg/dL 08/25/2024 2:15 AM [facility] Sodium 142 136 - 145 mmol/L 08/25/2024 2:15 AM [facility] Potassium 3.7 3.5 - 4.5 mmol/L 08/25/2024 2:15 AM [facility] Chloride 108(H) 98 - 107 mmol/L 08/25/2024 2:15 AM [facility] CO2 24 22 - 29 mmol/L 08/25/2024 2:15 AM [facility] Glucose 113(H) 70 - 99 mg/dL 08/25/2024 2:15 AM [facility] Calcium 8.9 8.4 - 10.2 mg/dL 08/25/2024 2:15 AM [facility] Anion Gap 10 6 - 16 08/25/2024 2:15 AM [facility] BUN/Creatinine Ratio 20 7 - 23 08/25/2024 2:15 AM [facility] Osmolality Calculated 296(H) 275 - 295 mOsm/kg 08/25/2024 2:15 AM [facility] eGFR by CKD-EPI 89(L) >=90 mL/min/1.7 3 m2 08/25/2024 2:15 AM [facility] Blood BLOOD SPECIMEN / Unknown Venipuncture / Unknown 08/25/2024 1:37 AM SENIOR INFORMATION SECURITY ANALYST 08/25/2024 1:46 AM SENIOR INFORMATION SECURITY ANALYST Marcos Lucio MD LAB - CHEMISTRY ORDERABLES Final Result [address] [address], [place] [phone] * (ABNORMAL) GLUCOSE - POINT OF CARE (08/25/2024 1:35 AM SENIOR INFORMATION SECURITY ANALYST) Only the most recent of4 resultswithin the time period is included. Glucose WB/POC 115(H) 70 - 99 mg/dL 08/25/2024 6:12 AM [facility] Specimen Type Venous 08/25/2024 6:12 AM [facility] Blood BLOOD SPECIMEN / Unknown 08/25/2024 1:35 AM SENIOR INFORMATION SECURITY ANALYST 08/25/2024 6:12 AM SENIOR INFORMATION SECURITY ANALYST us Marcos Lucio MD LAB - POINT OF CARE ORDERAB LES Final Result [facility] [address] [place] [address], [place] [phone] * MRI Brain Wo Contrast (08/24/2024 5:04 PM SENIOR INFORMATION SECURITY ANALYST) Anatomical Region Laterality Modality Head Magnetic Resonan ce 08/25/2024 9:25 AM SENIOR INFORMATION SECURITY ANALYST Impressions 08/25/2024 9:28 AM SENIOR INFORMATION SECURITY ANALYST IMPRESSION: 1. No acute intracranial process. Specifically, no acute infarct or acute intracranial hemorrhage. > Interpreting Provider: Amy Denson MD on 08/25/2024 9:28 AM Narrative 08/25/2024 9:28 AM SENIOR INFORMATION SECURITY ANALYST PROCEDURE: MRI BRAIN WO CONTRAST, DATE/TIME OF EXAM: 08/24/2024 5:04 PM, LOCATION [facility] INDICATION: R53.1: Right sided weakness ADDITIONAL CLINICAL INFORMATION: Ordering Provider Reason For Exam: stroke Technologist Note: Additional: TECHNIQUE: MRI of the brain was performed without intravenous contrast according to standard protocol. CONTRAST: COMPARISON: No prior study is available for comparison at the time of this dictation. FINDINGS: No evidence of acute cerebral infarction is seen. No evidence of acute or chronic hemorrhage is identified. The ventricles are of normal size, shape, and morphology. No mass effect or midline shift is seen. Scattered cerebral hemispheric white matter FLAIR hyperintensities are a nonspecific finding. The corpus callosum and sella appear normal. The posterior fossa, brainstem, and craniocervical junction appear normal. The visualized portions of the orbits, paranasal sinuses, and mastoids appear normal. Normal flow voids are demonstrated in the carotid arteries and basilar artery. The calvarium and visualized cervical spine appear normal. Procedure Note Amy Denson MD - 08/25/2024 PROCEDURE: MRI BRAIN WO CONTRAST, DATE/TIME OF EXAM: 08/24/2024 5:04 PM, LOCATION [facility] INDICATION: R53.1: Right sided weakness ADDITIONAL CLINICAL INFORMATION: Ordering Provider Reason For Exam: stroke Technologist Note: Additional: TECHNIQUE: MRI of the brain was performed without intravenous contrast according to standard protocol. CONTRAST: COMPARISON: No prior study is available for comparison at the time ofthis dictation. FINDINGS: No evidence of acute cerebral infarction is seen. No evidence of acuteor chronic hemorrhage is identified. The ventricles are of normal size,shape, and morphology. No mass effect or midline shift is seen. Scatteredcerebral hemispheric white matter FLAIR hyperintensities are a nonspecificfinding. The corpus callosum and sella appear normal. The posterior fossa, brainstem, and craniocervical junction appear normal. The visualized portions of the orbits, paranasal sinuses, and mastoids appear normal. Normal flow voids are demonstrated in the carotidarteries and basilar artery. The calvarium and visualized cervical spine appear normal. IMPRESSION: 1. No acute intracranial process. Specifically, no acute infarct oracute intracranial hemorrhage. > Interpreting Provider: Amy Denson MD on 08/25/2024 9:28 AM Marcos Lucio MD MR ORDERABLES Final Resul t * XR CHEST 1VW PORTABLE (08/24/2024 9:11 AM SENIOR INFORMATION SECURITY ANALYST) Anatomical Region Laterality Modality Chest Digital Radiogra phy 08/25/2024 11:2 6 AM SENIOR INFORMATION SECURITY ANALYST Narrative 08/25/2024 8:17 PM SENIOR INFORMATION SECURITY ANALYST PROCEDURE: XR CHEST 1VW PORTABLE, DATE/TIME OF EXAM: 08/24/2024 9:11 AM, LOCATION [facility] INDICATION: R53.1: Right sided weakness ADDITIONAL CLINICAL INFORMATION: Ordering Provider Reason For Exam: stroke COMPARISON: No prior study is available for comparison. FINDINGS/IMPRESSION: Partially imaged cervical spine fusion hardware. There is no focal consolidation, pleural effusion, or pneumothorax. The cardiomediastinal silhouette is normal for portable technique. The visible bony thorax is intact. > Dictated by Frederic Love MD (radiology director). Pedro Huitron MD have personally reviewed and interpreted this examination/study. > Interpreting Provider: Pedro Peoples MD on 08/25/2024 8:17 PM Procedure Note Pedro Peoples MD - 08/25/2024 PROCEDURE: XR CHEST 1VW PORTABLE, DATE/TIME OF EXAM: 08/24/2024 9:11 AM, LOCATION [facility] INDICATION: R53.1: Right sided weakness ADDITIONAL CLINICAL INFORMATION: Ordering Provider Reason For Exam: stroke COMPARISON: No prior study is available for comparison. FINDINGS/IMPRESSION: Partially imaged cervical spine fusion hardware. There is no focal consolidation, pleural effusion, or pneumothorax. The cardiomediastinal silhouette is normal for portable technique. Thevisible bony thorax is intact. > Dictated by Frederic Love MD (radiology director). I, Pedro Peoples MD have personally reviewed and interpreted this examination/study. > Interpreting Provider: Pedro Peoples MD on 08/25/2024 8:17 PM us Marcos Lucio MD DIAGNOSTIC IMAGING ORDERABL ES Final Result * TROPONIN-I HIGH SENSITIVE REFLEX 1HOUR (08/24/2024 7:57 AM SENIOR INFORMATION SECURITY ANALYST) [facility] Troponin I High Sensitive 4 <=14 ng/L 08/24/2024 8:43 AM [facility] Delta Troponin I HS 08/24/2024 8:43 AM [facility] Comment:Delta value intentio john not calculated. Baseline to 1 hour specimen collection interval exceeded. Blood BLOOD SPECIMEN / Unknown Venipuncture / Unknown 08/24/2024 7:57 AM SENIOR INFORMATION SECURITY ANALYST 08/24/2024 8:09 AM SENIOR INFORMATION SECURITY ANALYST us Marcos Lucio MD LAB - CHEMISTRY ORDERABLES Final Result [address] [address], [facility] [phone] * TROPONIN-I HIGH SENSITIVE BASELINE + 1HR (08/24/2024 6:19 AM SENIOR INFORMATION SECURITY ANALYST) [facility] Troponin I High Sensitive 5 <=14 ng/L 08/24/2024 7:07 AM [facility] Blood BLOOD SPECIMEN / Unknown Venipuncture / Unknown 08/24/2024 6:19 AM SENIOR INFORMATION SECURITY ANALYST 08/24/2024 6:33 AM SENIOR INFORMATION SECURITY ANALYST us Marcos Lucio MD LAB - CHEMISTRY ORDERABLES Final Result [address] [address], [facility] [phone] * (ABNORMAL) LIPID PROFILE (08/24/2024 6:19 AM SENIOR INFORMATION SECURITY ANALYST) [facility] Cholesterol Total 169 <200 mg/dL 08/24/2024 7:02 AM [facility] HDL 50 >40 mg/dL 08/24/2024 7:02 AM [facility] Comment: ATP III Classification of HDL Cholesterol: <40 mg/dL: Considered a major risk factor. >60 mg/dL: Considered a negative risk factor. LDL Calculated 108(H) <100 mg/dL 08/24/2024 7:02 AM [facility] Comment: ATP III Classification of LDL Cholesterol: <100 mg/dL: Optimal 100 - 129 mg/dL: Near Optimal/Above Optimal 130 - 159 mg/dL: Borderline High 160 - 189 mg/dL: High >190 mg/dL: Very High Triglycerides 57 <150 mg/dL 08/24/2024 7:02 AM [facility] Comment: ATP III Classification of Triglycerides: <150 mg/dL: Normal 150 - 199 mg/dL: Borderline High 200 - 400 mg/dL: High >500 mg/dL: Very High Blood BLOOD SPECIMEN / Unknown Venipuncture / Unknown 08/24/2024 6:19 AM SENIOR INFORMATION SECURITY ANALYST 08/24/2024 6:33 AM SENIOR INFORMATION SECURITY ANALYST us Marcos Lucio MD LAB - CHEMISTRY ORDERABLES Final Result [facility] [address] [place] [address], [facility] [phone] * EKG 12-LEAD (08/24/2024 4:50 AM SENIOR INFORMATION SECURITY ANALYST) [facility] Ventricular Rate 80 BPM SL MUSE Atrial Rate 80 BPM [facility] MUSE P-R Interval 156 ms [facility] QRS Duration ms 78 ms [facility] M[facility] Q-T Interval ms 378 ms [facility] QTC Calculation (Bezet) 435 ms [facility] MUSE Calculated P [place] 56 degrees [facility] MUSE Calculated R [place] -5 degrees [facility] MUSE Calculated T [place] 39 degrees [facility] MUSE Interpretation EKG NORMAL SINUS RHYTHM NORMAL ECG NO PREVIOUS ECGS AVAILABLE Confirmed by NJ CABEZAS MD ([id number]) on 08/25/2024 12:53:03 AM [facility] MUSE 08/24/2024 4:50 AM SENIOR INFORMATION SECURITY ANALYST 08/25/2024 12:53 AM SENIOR INFORMATION SECURITY ANALYST us Roland Smith MD ECG ORDERABLES Edited Result - Final Performing Organization Address [facility] Co de Phone Number [facility]USE * PT-INR [facility] (08/24/2024 4:31 AM [facility]) PT 12.4 12.1 - 14.8 Seconds 08/24/2024 5:03 AM [facility] INR 0.9 See Comment 08/24/2024 5:03 AM [facility] Comment:The suggested therap eutic range for standard coumadin (warfarin) therapy is an INR of 2.0-3.0. For high-risk patients (Mechanical Mitral Valve Prosthesis, etc.), the suggested prophylactic therapeutic range is an INR of 2.5-3.5. Blood BLOOD SPECIMEN / Unknown Venipuncture / Unknown 08/24/2024 4:31 AM SENIOR INFORMATION SECURITY ANALYST 08/24/2024 4:39 AM SENIOR INFORMATION SECURITY ANALYST Roland Smith MD LAB - COAGULATION ORDERABLES Final Result Performing Organization Address [facility] Co de Phone Number [facility] [address] [place] [address], [facility] [phone] * BLOOD TYPE VERIFICATION (08/24/2024 4:31 AM SENIOR INFORMATION SECURITY ANALYST) Pathologist [facility] ABO Rh O POS 08/24/2024 7:5 0 AM [facility] Blood Bank BLOOD SPECIMEN / Unknown Venipuncture / Unknown 08/24/2024 4:31 AM SENIOR INFORMATION SECURITY ANALYST 08/24/2024 6:44 AM SENIOR INFORMATION SECURITY ANALYST Marcos Lucio MD LAB - BLOOD BANK ORDERABLES Final Result Performing Organization Address [facility]/ZIP Co de Phone Number [facility] [address] [place] [address], [facility] [phone] * HEMOGLOBIN A1C (08/24/2024 4:31 AM SENIOR INFORMATION SECURITY ANALYST) Pathologist [facility] Hemoglobin A1c 5.3 <=5.6 % 08/25/2024 9:35 AM [facility] Estimated Average Glucose 105 mg/dL 08/25/2024 9:35 AM [facility] Comment: HbA1c Interpretation: Normal : < 5.7% Pre-diabetes: 5.7-6.4% Diabetes: Equal to or greater than 6.5% Test results diagnostic of diabetes should be repeated for confirmation. Treatment target values recommended by ADA and other clinical organizations should be used to evaluate metabolic control in patients. Reference: [place] Diabetes Association, Standards of Care in Diabetes -2020 In patients 70 years and older consider HbA1c target range of 7.0-7.5% (Reference: Juan Diego Varma et al. JAMDA. 2012) The Sebia assay for the measurement of HbA1c is a National Glycohemoglobin Standardization Program (NGSP) certified method. Blood BLOOD SPECIMEN / Unknown Venipuncture / Unknown 08/24/2024 4:31 AM SENIOR INFORMATION SECURITY ANALYST 08/24/2024 4:39 AM SENIOR INFORMATION SECURITY ANALYST us Marcos Lucio MD LAB - CHEMISTRY ORDERABLES Final Result Performing Organization Address City/[facility]/ZIP Co de Phone Number [address] [address], [facility] [phone] * TYPE + SCREEN PANEL (08/24/2024 4:31 AM SENIOR INFORMATION SECURITY ANALYST) Antibody Screen NEG 5:48 AM [facility] ABO Rh O POS 08/24/2024 5:48 AM [facility] Blood Bank BLOOD SPECIMEN / Unknown Venipuncture / Unknown 08/24/2024 4:31 AM SENIOR INFORMATION SECURITY ANALYST 08/24/2024 5:06 AM SENIOR INFORMATION SECURITY ANALYST us Roland Smith MD LAB - BLOOD BANK ORDERABLES F inal Result Performing Organization Address City/[facility]/ZIP Co de Phone Number [facility] [address] [place] [id number], [place] [phone] from Last 3 Months Insurance [employer] MEDICARE ADV Advance Directives * Full Code (Latest Code Status on File) Date Activated Date Inactivated Comments 08/24/2024 6:15 AM 08/25/2024 3:34 PM Care Teams Monitoring Coordinator Relationship Specialty Start Date End Date Rakan Patel MD [address] [place] [address] PCP - General 04/30/21
--- NOTE | 2024-11-19 01:28 | ECG_ITS ---
Test Date: 2024-11-19 01:34:49 Measurements Intervals [place] Rate: 74 P: 55 NM: 182 QRS: -12 QRSD: 84 T: 32 QT: 415 QTc: 462 Interpretive Statements SINUS RHYTHM NONSPECIFIC T-WAVE ABNORMALITY Compared to ECG 08/24/2024 02:30:14 T-wave abnormality now present Electronically Signed On 11-19-2024 14:24:50 CDT by Dinora Torres M.D.
--- OUTSIDE RECORDS SUMMARY | 2024-11-19 01:32 | XMS_ITS | Clinical Summary ---
Author Organization [facility] Address [address] [place] [address] Care Team Providers Care Proofer Black And White Name Role Phone Rakan Patel MD Primary Care Provider [phone] Source Comments [facility],non-[facility] Affiliates and Associated Physician Practices is amultiple site organization consisting of ambulatory clinics and hospital sitesin [place], [place], [place] and [place]. This disclosure is being madepursuant to the Care Everywhere program and may not contain all information available regarding this patient. 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 Overview (08/24/2024): C6-7 Hoarseness 08/13/2014 Encounters Date Type Department Care Team Description 08/26/2024 6:52 PM NOTCHING MACHINE OPERATOR - 08/26/2024 8:50 PM NOTCHING MACHINE OPERATOR Emergency [facility] EMERGENCY DEPARTMENT [address] [place] [address] Headache, unspecified headache type Discharge Disposition: Left Against Medical Advice/Discontinued Care 08/26/2024 Travel 08/24/2024 4:19 AM NOTCHING MACHINE OPERATOR - 08/25/2024 2:34 PM NOTCHING MACHINE OPERATOR Hospital Encounter [facility] 3N ICU [address] [place] [address] Marcos Lucio MD Neurology Discharge Disposition: Home [...] Recorded Patient Health Questionnaire-2 Score 0 08/25/2024 [facility] [place] [facility] Occupat ional Health - Occupational Stress [...] any time in the past 12 m [facility], were you homeless or living in a [facility] (including now)? No 08/24/2024 Comments Unknown Sex and Gender Information Value Date Recorded Sex Assigned at Not on file Legal Sex Female 4:56 AM NOTCHING MACHINE OPERATOR Gender Identity Not on file Sexual Orientation Not on file Last Filed Vital Signs Vital Sign Reading Time Taken Comments Blood Pressure 136/84 08/26/2024 2:00 PM NOTCHING MACHINE OPERATOR Pulse 75 08/26/2024 2:00 PM NOTCHING MACHINE OPERATOR Temperature 37.1 C (98.7 F) 08/26/2024 2:00 PM NOTCHING MACHINE OPERATOR Respiratory Rate 18 08/26/2024 2:00 PM NOTCHING MACHINE OPERATOR Oxygen Saturation 100% 08/26/2024 2:00 PM NOTCHING MACHINE OPERATOR Inhaled Oxygen Concentration - - Weight 108.9 kg (240 lb) 08/26/2024 2:00 PM NOTCHING MACHINE OPERATOR Height 177.8 cm (5' 10 ) 08/26/2024 2:00 PM NOTCHING MACHINE OPERATOR Body Mass Index 34.44 08/26/2024 2:00 PM NOTCHING MACHINE OPERATOR Plan of Treatment Upcoming Encounters Date Type Department Care Team (Late st Contact Info) Description 01/03/2025 10:00 AM CDT Office Visit [facility] - Neurology [address] [facility], [facility] [place] [address] Cheryl Hatch MD [address] [place] [address] Health Maintenance Due Date Last Done Comments [...] SPINE WO CONTRAST STAT 08/26/2024 4:36 PM NOTCHING MACHINE OPERATOR Headache, unspecified headache type CT HEAD WO CONTRAST STAT 08/26/2024 4 :36 PM NOTCHING MACHINE OPERATOR Headache, unspecified headache type ERYTHROCYTE SEDIMENTATION RATE STAT 08/26/2024 4:06 PM NOTCHING MACHINE OPERATOR C-REACTIVE PROTEIN GIORGIO 08/26/2024 4: 06 PM NOTCHING MACHINE OPERATOR COMPREHENSIVE METABOLIC PANEL STAT 08/26/2024 4:06 PM NOTCHING MACHINE OPERATOR CBC W AUTO DIFFERENTIAL STAT 08/26/2024 4:06 PM NOTCHING MACHINE OPERATOR CT HEAD WO CONTRAST Routine 08/25/2024 3 :40 AM NOTCHING MACHINE OPERATOR Right sided weakness CBC W/O DIFFERENTIAL Routine 08/25/2024 1:37 AM NOTCHING MACHINE OPERATOR BASIC METABOLIC PANEL (CALCIUM TOTAL) Routine 08/25/2024 1:37 AM NOTCHING MACHINE OPERATOR GLUCOSE - POINT OF CARE Routine 08/25/2024 1:35 AM NOTCHING MACHINE OPERATOR GLUCOSE - POINT OF CARE Routine 08/24/2024 5:39 PM NOTCHING MACHINE OPERATOR MRI BRAIN WO CONTRAST Routine 08/24/2024 5:04 PM NOTCHING MACHINE OPERATOR Right sided weakness GLUCOSE - POINT OF CARE Routine 08/24/2024 12:33 PM NOTCHING MACHINE OPERATOR XR CHEST 1VW PORTABLE Routine 08/24/2024 9:11 AM NOTCHING MACHINE OPERATOR Right sided weakness OT EVAL AND TREAT Routine 08/24/2024 8:3 8 AM NOTCHING MACHINE OPERATOR TROPONIN-I HIGH SENSITIVE REFLEX 1HOUR Timed 08/24/2024 7:57 AM NOTCHING MACHINE OPERATOR LIPID PROFILE Routine 08/24/2024 6:19 AM NOTCHING MACHINE OPERATOR TROPONIN-I HIGH SENSITIVE BASELINE + 1HR STAT 08/24/2024 6:19 AM NOTCHING MACHINE OPERATOR OT EVAL AND TREAT Routine 08/24/2024 6:1 5 AM NOTCHING MACHINE OPERATOR EKG 12-LEAD STAT 08/24/2024 4:50 AM NOTCHING MACHINE OPERATOR Right sided weakness BLOOD TYPE VERIFICATION STAT 08/24/2024 4:31 AM NOTCHING MACHINE OPERATOR TYPE + SCREEN PANEL STAT 08/24/2024 4 :31 AM NOTCHING MACHINE OPERATOR HEMOGLOBIN A1C Add on 08/24/2024 4:31 AM NOTCHING MACHINE OPERATOR PT-INR [facility] STAT 08/24/2024 4:31 AM NOTCHING MACHINE OPERATOR COMPREHENSIVE METABOLIC PANEL STAT 08/24/2024 4:31 AM NOTCHING MACHINE OPERATOR CBC W AUTO DIFFERENTIAL STAT 08/24/2024 4:31 AM NOTCHING MACHINE OPERATOR GLUCOSE - POINT OF CARE Routine 08/24/2024 4:27 AM NOTCHING MACHINE OPERATOR from Last 3 Months Results * CT Cervical Spine Wo Contrast (08/26/2024 4:36 PM NOTCHING MACHINE OPERATOR) Anatomical Region Laterality Modality Spine Computed Tomogra phy 08/26/2024 4:50 PM NOTCHING MACHINE OPERATOR Impressions 08/26/2024 5:51 PM NOTCHING MACHINE OPERATOR IMPRESSION: 1.No acute intracranial process interval changes. 2.Uncomplicated postsurgical changes of the cervical spine C5-6 without evidence of interbody nonunion. 3.No evidence of acute fracture in the cervical spine. 4.Age indeterminate right eccentric posterior disc bulging at C3-C4 and concentric posterior disc bulging at C4-C5 are not associated with cord compression or significant spinal stenosis. The report is dictated by Tu Lerner DO, (vice president of academic affairs) INathan MD have personally reviewed and interpreted this examination/study. > Interpreting Provider: Nathan Grey MD on 08/26/2024 5:51 PM Narrative 08/26/2024 5:51 PM NOTCHING MACHINE OPERATOR PROCEDURE: CT HEAD WO CONTRAST, CT CERVICAL SPINE WO CONTRAST, DATE/TIME OF EXAM: 08/26/2024 4:38 PM, LOCATION [facility] INDICATION: R51.9: Headache, unspecified headache type ADDITIONAL CLINICAL INFORMATION: Ordering Provider Reason For Exam: post TPA SANTOS, ro bleed (accession [id number]), ro fx, misalignment, DDD (accession [id number]) Technologist Note: Additional: EXAMINATION: 1. CT OF [...] CONTRAST,DATE/TIME OF EXAM: 08/26/2024 4:38 PM, LOCATION [facility] INDICATION: R51.9: Headache, unspecified headache type ADDITIONAL CLINICAL INFORMATION: Ordering Provider Reason For Exam: post TPA SANTOS, ro bleed (accession [id number]), ro fx, misalignment, DDD (accession [id number]) Technologist Note: Additional: EXAMINATION: 1. CT OF [...] report is dictated by Tu Lerner DO, (vice president of academic affairs) Nathan Huitron MD have personally reviewed and interpreted this examination/study. > Interpreting Provider: Nathan Grey MD on 08/26/2024 5:51 PM us Marcy Moody Javi PA-Ana CT ORDERABLES Final Resul t * CT HEAD WO CONTRAST (08/26/2024 4:36 PM NOTCHING MACHINE OPERATOR) Only the most recent of2 resultswithin the time period is included. Anatomical Region Laterality Modality Head Computed Tomogra phy 08/26/2024 4:50 PM NOTCHING MACHINE OPERATOR Impressions 08/26/2024 5:51 PM NOTCHING MACHINE OPERATOR IMPRESSION: 1.No acute intracranial process interval changes. 2.Uncomplicated postsurgical changes of the cervical spine C5-6 without evidence of interbody nonunion. 3.No evidence of acute fracture in the cervical spine. 4.Age indeterminate right eccentric posterior disc bulging at C3-C4 and concentric posterior disc bulging at C4-C5 are not associated with cord compression or significant spinal stenosis. The report is dictated by Tu Lerner DO, (vice president of academic affairs) Nathan Huitron MD have personally reviewed and interpreted this examination/study. > Interpreting Provider: Nathan Grey MD on 08/26/2024 5:51 PM Narrative 08/26/2024 5:51 PM NOTCHING MACHINE OPERATOR PROCEDURE: CT HEAD WO CONTRAST, CT CERVICAL SPINE WO CONTRAST, DATE/TIME OF EXAM: 08/26/2024 4:38 PM, LOCATION [facility] INDICATION: R51.9: Headache, unspecified headache type ADDITIONAL CLINICAL INFORMATION: Ordering Provider Reason For Exam: post TPA SANTOS, ro bleed (accession [id number]), ro fx, misalignment, DDD (accession [id number]) Technologist Note: Additional: EXAMINATION: 1. CT OF [...] CONTRAST,DATE/TIME OF EXAM: 08/26/2024 4:38 PM, LOCATION [facility] INDICATION: R51.9: Headache, unspecified headache type ADDITIONAL CLINICAL INFORMATION: Ordering Provider Reason For Exam: post TPA SANTOS, ro bleed (accession [id number]), ro fx, misalignment, DDD (accession [id number]) Technologist Note: Additional: EXAMINATION: 1. CT OF [...] report is dictated by Tu Lerner DO, (vice president of academic affairs) INathan MD have personally reviewed and interpreted this examination/study. > Interpreting Provider: Nathan Grey MD on 08/26/2024 5:51 PM us Marcy Caldwell PA-C CT ORDERABLES Final Resul t * (ABNORMAL) C-REACTIVE PROTEIN (08/26/2024 4:06 PM NOTCHING MACHINE OPERATOR) Pathologist [facility] C-Reactive Protein 1.7(H) <=0.5 mg/dL 08/26/2024 4:55 PM NOTCHING MACHINE OPERATOR [facility] Blood BLOOD SPECIMEN / Unknown Venipuncture / Unknown 08/26/2024 4:06 PM NOTCHING MACHINE OPERATOR 08/26/2024 4:29 PM NOTCHING MACHINE OPERATOR us Marcy CONNOLLYC LAB - CHEMISTRY ORDERABLES Final Result [address] [address], [facility] [phone] * (ABNORMAL) ERYTHROCYTE SEDIMENTATION RATE (08/26/2024 4:06 PM NOTCHING MACHINE OPERATOR) [facility] Erythrocyte Sedimentation Rate Westergren 63(H) 0 - 30 MM/HR 08/26/2024 4:52 PM NOTCHING MACHINE OPERATOR [facility] Blood BLOOD SPECIMEN / Unknown Venipuncture / Unknown 08/26/2024 4:06 PM NOTCHING MACHINE OPERATOR 08/26/2024 4:28 PM NOTCHING MACHINE OPERATOR us Marcy DOUGLAS-C LAB - HEMATOLOGY ORDERABLES Final Result [address] [address], [place] [phone] * CBC W AUTO DIFFERENTIAL (08/26/2024 4:06 PM NOTCHING MACHINE OPERATOR) Only the most recent of2 resultswithin the time period is included. Pathologist [facility] WBC 10.5 4.0 - 10.7 x10E9/L 08/26/2024 4:34 PM [facility] RBC Count 4.43 3.90 - 5.20 x10E12/L 08/26/2024 4:34 PM [facility] Hemoglobin 13.0 11.9 - 15.8 g/dL 08/26/2024 4:34 PM [facility] Hematocrit 39.9 34.8 - 46.1 % 08/26/2024 4:34 PM [facility] MCV 90.1 80.0 - 98.0 fL 08/26/2024 4:34 PM [facility] MCH 29.3 26.7 - 33.6 pg 08/26/2024 4:34 PM [facility] MCHC 32.6 31.7 - 36.3 g/dL 08/26/2024 4:34 PM [facility] RDW-CV 13.9 11.3 - 14.8 % 08/26/2024 4:34 PM [facility] Platelet Count 261 150 - 420 x10E9/L 08/26/2024 4:34 PM [facility] MPV 10.3 7.8 - 11.4 fL 08/26/2024 4:34 PM [facility] Neutrophil % 63.7 41.0 - 74.0 % 08/26/2024 4:34 PM [facility] Lymphocyte % 28.0 17.0 - 47.0 % 08/26/2024 4:34 PM [facility] Monocyte % 6.6 3.0 - 11.0 % 08/26/2024 4:34 PM [facility] Eosinophil % 1.1 0.0 - 7.0 % 08/26/2024 4:34 PM [facility] Basophil % 0.2 0.0 - 1.6 % 08/26/2024 4:34 PM [facility] Immature Granulocytes % 0.4 0.0 - 1.0 % 08/26/2024 4:34 PM [facility] Neutrophil Absolute 6.67 1.60 - 7.50 x10E9/L 08/26/2024 4:34 PM [facility] Lymphocyte Absolute 2.93 1.00 - 4.40 x10E9/L 08/26/2024 4:34 PM [facility] Monocyte Absolute 0.69 0.15 - 1.00 x10E9/L 08/26/2024 4:34 PM [facility] Eosinophil Absolute 0.12 0.00 - 0.60 x10E9/L 08/26/2024 4:34 PM [facility] Basophil Absolute 0.02 0.00 - 0.13 x10E9/L 08/26/2024 4:34 PM [facility] Blood BLOOD SPECIMEN / Unknown Venipuncture / Unknown 08/26/2024 4:06 PM NOTCHING MACHINE OPERATOR 08/26/2024 4:28 PM NOTCHING MACHINE OPERATOR us Marcy Caldwell PA-C LAB - HEMATOLOGY ORDERABLES Final Result [facility] [address] [place] [address], [facility] [phone] * (ABNORMAL) COMPREHENSIVE METABOLIC PANEL (08/26/2024 4:06 PM NOTCHING MACHINE OPERATOR) Only the most recent of2 resultswithin the time period is included. BUN 15 7 - 26 mg/dL 08/26/2024 4:55 PM [facility] Creatinine 0.85 0.56 - 0.96 mg/dL 08/26/2024 4:55 PM [facility] Sodium 143 136 - 145 mmol/L 08/26/2024 4:55 PM [facility] Potassium 4.2 3.5 - 4.5 mmol/L 08/26/2024 4:55 PM [facility] Chloride 106 98 - 107 mmol/L 08/26/2024 4:55 PM [facility] CO2 27 22 - 29 mmol/L 08/26/2024 4:55 PM [facility] Glucose 79 70 - 99 mg/dL 08/26/2024 4:55 PM [facility] Calcium 9.6 8.4 - 10.2 mg/dL 08/26/2024 4:55 PM [facility] Protein Total 7.7 6.0 - 8.3 g/dL 08/26/2024 4:55 PM [facility] Albumin 4.2 3.4 - 5.0 g/dL 08/26/2024 4:55 PM [facility] Bilirubin Total 0.3 0.2 - 1.2 mg/dL 08/26/2024 4:55 PM [facility] Alkaline Phosphatase 109 40 - 150 U/L 08/26/2024 4:55 PM [facility] ALT 19 5 - 55 U/L 08/26/2024 4:55 PM [facility] AST 16 5 - 34 U/L 08/26/2024 4:55 PM [facility] Anion Gap 10 6 - 16 08/26/2024 4:55 PM [facility] BUN/Creatinine Ratio 18 7 - 23 08/26/2024 4:55 PM [facility] Osmolality Calculated 296(H) 275 - 295 mOsm/kg 08/26/2024 4:55 PM [facility] Albumin/Globulin Ratio 1.2 1.1 - 2.3 08/26/2024 4:55 PM [facility] eGFR by CKD-EPI 81(L) >=90 mL/min/1.7 3 m2 08/26/2024 4:55 PM [facility] Blood BLOOD SPECIMEN / Unknown Venipuncture / Unknown 08/26/2024 4:06 PM NOTCHING MACHINE OPERATOR 08/26/2024 4:29 PM NOTCHING MACHINE OPERATOR us Marcy Caldwell PA-C LAB - CHEMISTRY ORDERABLES Final Result Performing Organization Address [facility]/State/ZIP Co de Phone Number [address] [address] [phone] * (ABNORMAL) CBC W/O DIFFERENTIAL (08/25/2024 1:37 AM NOTCHING MACHINE OPERATOR) WBC 8.7 4.0 - 10.7 x10E9/L 08/25/2024 1:49 AM [facility] RBC Count 4.07 3.90 - 5.20 x10E12/L 08/25/2024 1:49 AM [facility] Hemoglobin 11.6(L) 11.9 - 15.8 g/dL 08/25/2024 1:49 AM [facility] Hematocrit 36.7 34.8 - 46.1 % 08/25/2024 1:49 AM [facility] MCV 90.2 80.0 - 98.0 fL 08/25/2024 1:49 AM [facility] MCH 28.5 26.7 - 33.6 pg 08/25/2024 1:49 AM [facility] MCHC 31.6(L) 31.7 - 36.3 g/dL 08/25/2024 1:49 AM [facility] RDW-CV 14.0 11.3 - 14.8 % 08/25/2024 1:49 AM [facility] Platelet Count 228 150 - 420 x10E9/L 08/25/2024 1:49 AM [facility] MPV 10.0 7.8 - 11.4 fL 08/25/2024 1:49 AM [facility] Blood BLOOD SPECIMEN / Unknown Venipuncture / Unknown 08/25/2024 1:37 AM NOTCHING MACHINE OPERATOR 08/25/2024 1:46 AM [facility] us Marcos Lucio MD LAB - HEMATOLOGY ORDERABLES Final Result [address] [address], [facility] [phone] * (ABNORMAL) BASIC METABOLIC PANEL (CALCIUM TOTAL) (08/25/2024 1:37 AM [facility]) BUN 16 7 - 26 mg/dL 08/25/2024 2:15 AM [facility] Creatinine 0.79 0.56 - 0.96 mg/dL 08/25/2024 2:15 AM [facility] Sodium 142 136 - 145 mmol/L 08/25/2024 2:15 AM [facility] Potassium 3.7 3.5 - 4.5 mmol/L 08/25/2024 2:15 AM [facility] Chloride 108(H) 98 - 107 mmol/L 08/25/2024 2:15 AM [facility] CO2 24 22 - 29 mmol/L 08/25/2024 2:15 AM [facility] Glucose 113(H) 70 - 99 mg/dL 08/25/2024 2:15 AM [facility] Calcium 8.9 8.4 - 10.2 mg/dL 08/25/2024 2:15 AM [facility] Anion Gap 10 6 - 16 08/25/2024 2:15 AM [facility] BUN/Creatinine Ratio 20 7 - 23 08/25/2024 2:15 AM [facility] Osmolality Calculated 296(H) 275 - 295 mOsm/kg 08/25/2024 2:15 AM [facility] eGFR by CKD-EPI 89(L) >=90 mL/min/1.7 3 m2 08/25/2024 2:15 AM [facility] Blood BLOOD SPECIMEN / Unknown Venipuncture / Unknown 08/25/2024 1:37 AM NOTCHING MACHINE OPERATOR 08/25/2024 1:46 AM NOTCHING MACHINE OPERATOR Marcos Lucio MD LAB - CHEMISTRY ORDERABLES Final Result [address] [address], [place] [phone] * (ABNORMAL) GLUCOSE - POINT OF CARE (08/25/2024 1:35 AM NOTCHING MACHINE OPERATOR) Only the most recent of4 resultswithin the time period is included. Glucose WB/POC 115(H) 70 - 99 mg/dL 08/25/2024 6:12 AM [facility] Specimen Type Venous 08/25/2024 6:12 AM [facility] Blood BLOOD SPECIMEN / Unknown 08/25/2024 1:35 AM NOTCHING MACHINE OPERATOR 08/25/2024 6:12 AM NOTCHING MACHINE OPERATOR us Marcos Lucio MD LAB - POINT OF CARE ORDERAB LES Final Result [facility] [address] [place] [address], [place] [phone] * MRI Brain Wo Contrast (08/24/2024 5:04 PM NOTCHING MACHINE OPERATOR) Anatomical Region Laterality Modality Head Magnetic Resonan ce 08/25/2024 9:25 AM NOTCHING MACHINE OPERATOR Impressions 08/25/2024 9:28 AM NOTCHING MACHINE OPERATOR IMPRESSION: 1. No acute intracranial process. Specifically, no acute infarct or acute intracranial hemorrhage. > Interpreting Provider: Amy Denson MD on 08/25/2024 9:28 AM Narrative 08/25/2024 9:28 AM NOTCHING MACHINE OPERATOR PROCEDURE: MRI BRAIN WO CONTRAST, DATE/TIME OF EXAM: 08/24/2024 5:04 PM, LOCATION [facility] INDICATION: R53.1: Right sided weakness ADDITIONAL CLINICAL [...] DATE/TIME OF EXAM: 08/24/2024 5:04 PM, LOCATION [facility] INDICATION: R53.1: Right sided weakness ADDITIONAL CLINICAL [...] XR CHEST 1VW PORTABLE (08/24/2024 9:11 AM NOTCHING MACHINE OPERATOR) Anatomical Region Laterality Modality Chest Digital Radiogra phy 08/25/2024 11:2 6 AM NOTCHING MACHINE OPERATOR Narrative 08/25/2024 8:17 PM NOTCHING MACHINE OPERATOR PROCEDURE: XR CHEST 1VW PORTABLE, DATE/TIME OF EXAM: 08/24/2024 9:11 AM, LOCATION [facility] INDICATION: R53.1: Right sided weakness ADDITIONAL CLINICAL INFORMATION: Ordering Provider Reason For Exam: stroke COMPARISON: No prior study is available for comparison. FINDINGS/IMPRESSION: Partially imaged cervical spine fusion hardware. There is no focal consolidation, pleural effusion, or pneumothorax. The cardiomediastinal silhouette is normal for portable technique. The visible bony thorax is intact. > Dictated by Frederic Love MD (vice president of academic affairs). Pedro Huitron MD have personally reviewed and interpreted this examination/study. > Interpreting Provider: Pedro Peoples MD on 08/25/2024 8:17 PM Procedure Note Pedro Peoples MD - 08/25/2024 PROCEDURE: XR CHEST 1VW PORTABLE, DATE/TIME OF EXAM: 08/24/2024 9:11 AM, LOCATION [facility] INDICATION: R53.1: Right sided weakness ADDITIONAL CLINICAL INFORMATION: Ordering Provider Reason For Exam: stroke COMPARISON: No prior study is available for comparison. FINDINGS/IMPRESSION: Partially imaged cervical spine fusion hardware. There is no focal consolidation, pleural effusion, or pneumothorax. The cardiomediastinal silhouette is normal for portable technique. Thevisible bony thorax is intact. > Dictated by Frederic Love MD (vice president of academic affairs). I, Pedro Peoples MD have personally reviewed and interpreted this examination/study. > Interpreting Provider: Pedro Peoples MD on 08/25/2024 8:17 PM us Marcos Lucio MD DIAGNOSTIC IMAGING ORDERABL ES Final Result * TROPONIN-I HIGH SENSITIVE REFLEX 1HOUR (08/24/2024 7:57 AM NOTCHING MACHINE OPERATOR) [facility] Troponin I High Sensitive 4 <=14 ng/L 08/24/2024 8:43 AM [facility] Delta Troponin I HS 08/24/2024 8:43 AM [facility] Comment:Delta value intentio john not calculated. Baseline to 1 hour specimen collection interval exceeded. Blood BLOOD SPECIMEN / Unknown Venipuncture / Unknown 08/24/2024 7:57 AM NOTCHING MACHINE OPERATOR 08/24/2024 8:09 AM NOTCHING MACHINE OPERATOR us Marcos Lucio MD LAB - CHEMISTRY ORDERABLES Final Result [address] [address], [facility] [phone] * TROPONIN-I HIGH SENSITIVE BASELINE + 1HR (08/24/2024 6:19 AM NOTCHING MACHINE OPERATOR) [facility] Troponin I High Sensitive 5 <=14 ng/L 08/24/2024 7:07 AM [facility] Blood BLOOD SPECIMEN / Unknown Venipuncture / Unknown 08/24/2024 6:19 AM NOTCHING MACHINE OPERATOR 08/24/2024 6:33 AM NOTCHING MACHINE OPERATOR us Marcos Lucio MD LAB - CHEMISTRY ORDERABLES Final Result [address] [address], [facility] [phone] * (ABNORMAL) LIPID PROFILE (08/24/2024 6:19 AM NOTCHING MACHINE OPERATOR) [facility] Cholesterol Total 169 <200 mg/dL 08/24/2024 7:02 AM [facility] HDL 50 >40 mg/dL 08/24/2024 7:02 AM [facility] Comment: ATP III Classification of HDL Cholesterol: <40 mg/dL: Considered a major risk factor. >60 mg/dL: Considered a negative risk factor. LDL Calculated 108(H) <100 mg/dL 08/24/2024 7:02 AM [facility] Comment: ATP III Classification of LDL Cholesterol: <100 mg/dL: Optimal 100 - 129 mg/dL: Near Optimal/Above Optimal 130 - 159 mg/dL: Borderline High 160 - 189 mg/dL: High >190 mg/dL: Very High Triglycerides 57 <150 mg/dL 08/24/2024 7:02 AM [facility] Comment: ATP III Classification of Triglycerides: <150 mg/dL: Normal 150 - 199 mg/dL: Borderline High 200 - 400 mg/dL: High >500 mg/dL: Very High Blood BLOOD SPECIMEN / Unknown Venipuncture / Unknown 08/24/2024 6:19 AM NOTCHING MACHINE OPERATOR 08/24/2024 6:33 AM NOTCHING MACHINE OPERATOR us Marcos Lucio MD LAB - CHEMISTRY ORDERABLES Final Result [facility] [address] [place] [phone], [facility] [phone] * EKG 12-LEAD (08/24/2024 4:50 AM NOTCHING MACHINE OPERATOR) [facility] Ventricular Rate 80 BPM SL MUSE Atrial Rate 80 BPM [facility] MUSE P-R Interval 156 ms [facility] QRS Duration ms 78 ms [facility] M[facility] Q-T Interval ms 378 ms [facility] QTC Calculation (Bezet) 435 ms [facility] Calculated P [place] 56 degrees [facility] Calculated R [place] -5 degrees [facility] Calculated T [place] 39 degrees [facility] Interpretation EKG NORMAL SINUS RHYTHM NORMAL ECG NO PREVIOUS ECGS AVAILABLE Confirmed by NJ CABEZAS MD ([id number]) on 08/25/2024 12:53:03 AM [facility] 08/24/2024 4:50 AM NOTCHING MACHINE OPERATOR 08/25/2024 12:53 AM NOTCHING MACHINE OPERATOR us Roland Smith MD ECG ORDERABLES Edited Result - Final Performing Organization Address [facility] Co de Phone Number [facility] * PT-INR [facility] (08/24/2024 4:31 AM [facility]) PT 12.4 12.1 - 14.8 Seconds 08/24/2024 5:03 AM [facility] INR 0.9 See Comment 08/24/2024 5:03 AM [facility] Comment:The suggested therap eutic range for standard coumadin (warfarin) therapy is an INR of 2.0-3.0. For high-risk patients (Mechanical Mitral Valve Prosthesis, etc.), the suggested prophylactic therapeutic range is an INR of 2.5-3.5. Blood BLOOD SPECIMEN / Unknown Venipuncture / Unknown 08/24/2024 4:31 AM NOTCHING MACHINE OPERATOR 08/24/2024 4:39 AM NOTCHING MACHINE OPERATOR Roland Smith MD LAB - COAGULATION ORDERABLES Final Result Performing Organization Address [facility] Co de Phone Number [facility] [address] [place] [phone], [facility] [phone] * BLOOD TYPE VERIFICATION (08/24/2024 4:31 AM NOTCHING MACHINE OPERATOR) Pathologist [facility] ABO Rh O POS 08/24/2024 7:5 0 AM [facility] Blood Bank BLOOD SPECIMEN / Unknown Venipuncture / Unknown 08/24/2024 4:31 AM NOTCHING MACHINE OPERATOR 08/24/2024 6:44 AM NOTCHING MACHINE OPERATOR Marcos Lucio MD LAB - BLOOD BANK ORDERABLES Final Result Performing Organization Address [facility]/ZIP Co de Phone Number [facility] [address] [place] [id number], [facility] [phone] * HEMOGLOBIN A1C (08/24/2024 4:31 AM NOTCHING MACHINE OPERATOR) Pathologist [facility] Hemoglobin A1c 5.3 <=5.6 % 08/25/2024 9:35 AM [facility] Estimated Average Glucose 105 mg/dL 08/25/2024 9:35 AM [facility] Comment: HbA1c Interpretation: Normal : < 5.7% Pre-diabetes: 5.7-6.4% Diabetes: Equal to or greater than 6.5% Test results diagnostic of diabetes should be repeated for confirmation. Treatment target values recommended by ADA and other clinical organizations should be used to evaluate metabolic control in patients. Reference: [place] Diabetes Association, Standards of Care in Diabetes -2020 In patients 70 years and older consider HbA1c target range of 7.0-7.5% (Reference: Juan Diego Varma et al. JAMDA. 2012) The Sebia assay for the measurement of HbA1c is a National Glycohemoglobin Standardization Program (NGSP) certified method. Blood BLOOD SPECIMEN / Unknown Venipuncture / Unknown 08/24/2024 4:31 AM NOTCHING MACHINE OPERATOR 08/24/2024 4:39 AM NOTCHING MACHINE OPERATOR us Marcos Lucio MD LAB - CHEMISTRY ORDERABLES Final Result Performing Organization Address City/[facility]/ZIP Co de Phone Number [address] [address], [facility] [phone] * TYPE + SCREEN PANEL (08/24/2024 4:31 AM NOTCHING MACHINE OPERATOR) Antibody Screen NEG 5:48 AM [facility] ABO Rh O POS 08/24/2024 5:48 AM [facility] Blood Bank BLOOD SPECIMEN / Unknown Venipuncture / Unknown 08/24/2024 4:31 AM NOTCHING MACHINE OPERATOR 08/24/2024 5:06 AM NOTCHING MACHINE OPERATOR us Roland Smith MD LAB - BLOOD BANK ORDERABLES F inal Result Performing Organization Address City/[facility]/ZIP Co de Phone Number [facility] [address] [place] [id number], [place] [phone] from Last 3 Months Insurance [employer] A[employer] MEDICARE ADV Advance Directives * Full Code (Latest Code Status on File) Date Activated Date Inactivated Comments 08/24/2024 6:15 AM 08/25/2024 3:34 PM Care Teams Proofer Black And White Relationship Specialty Start Date End Date Rakan Patel MD [address] [place] [address] PCP - General 04/30/21
--- OUTSIDE RECORDS SUMMARY | 2024-11-19 01:32 | XMS_ITS | Clinical Summary ---
Author Organization [facility] Care Team Providers Care Client Development Director Name Role Phone Unavailable Primary Care Provider Unavailabl e Social History Tobacco Use Types Packs/Day Years Used Date Smoking Tobacco: Never Assessed Comments Unknown Sex and Gender Information Value Date Recorded Sex Assigned at Not on file Legal Sex Female 12:13 PM LEI SELLER Gender Identity Not on file Sexual Orientation [...]
--- OUTSIDE RECORDS SUMMARY | 2024-11-19 01:32 | XMS_ITS | Referral Summary ---
Author Organization [facility] Address [address] [place] [address] Care Team Providers Care Websphere Commerce Developer Name Role Phone Rakan Patel MD Primary Care Provider Heber Cha MD Unavailable [phone] Ruddy Benites Unavailable [phone] Allergies Active Allergy Reactions Criticality Noted Date [...] (04/28/2021): Added automatically from request for surgery [id number] Cervical radiculopathy 02/12/2015 Immunizations Immunization Administration Dates Next Due Influenza, Quadrivalent, Lucina [...] on file Legal Sex Female 12:30 PM FLY FISHING GUIDE Gender Identity Not on file Sexual Orientation Not on file Last Filed Vital Signs Vital Sign Reading Time Taken Comments Blood Pressure 154/89 06/07/2023 10:56 AM FLY FISHING GUIDE Pulse 88 06/07/2023 10:56 AM FLY FISHING GUIDE Temperature 36.7 C (98 F) 11/23/2021 5:06 PM CDT Respiratory Rate 18 11/23/2021 8:55 PM CDT Oxygen Saturation 94% 06/07/2023 10:56 AM FLY FISHING GUIDE Inhaled Oxygen Concentration - - Weight 121.1 kg (267 lb) 06/07/2023 10:56 AM FLY FISHING GUIDE Height 177.8 cm (5' 10 ) 06/07/2023 10:56 AM FLY FISHING GUIDE Body Mass Index 38.31 06/07/2023 10:56 AM FLY FISHING GUIDE Plan of Treatment Not on file Medical Devices Implanted Type Area Wrecking Mechanic Device Identifier Shelf Expiration Date Model / Serial / Lot Musculoskeletal Transplant [id number] 4-30mm Allograft Frozen [id number] Wedge Graft Bone - [id number] - [id number] Implanted:Qty: 1 on 06/07/2021 by Heber Cha MD at [facility] Bone N/A: Spine Cervical Musculoskeletal Transplant 01/30/2025 [id number] / [id number] / [employer] [id number] Xtend L32 Mm 2 Level Spine; Cervical; Anterior Plate Bone - [id number] Implanted:Qty: 1 on 06/07/2021 by Heber Cha MD at [facility] N/A: Other - see comments [employer] 161.232 / / Description:Cervical Spine [employer] 161.314 Xtend Od4.2 Mm L14 Mm Variable Angle; Self Tap Spine Screw Bone - [id number] Implanted:Qty: 4 on 06/07/2021 by Heber Cha MD at [facility] N/A: Other - see comments [facility] [employer] 161.314 / / Description:Cervical Spine [facility] 665.614 L14 Mm Spine Distractor Surgical - [id number] Implanted:Qty: 2 on 06/07/2021 by Heber Cha MD at [facility] N/A: Other - see comments [facility] 665.614 / / Description:Cervical Spine Procedures Procedure [...] to request sample to be sent to [facility] for Hepatitis C Virus (HCV) RNA Detection and Quantitation by Real-Time Reverse Manufacturing Group Leader-PCR (RT-PCR). Current interpretive data was last revised on 2011 us Ruddy Velez MD LAB BLOOD ORDERABLES Final Re sult HISTORICAL RESULTS from Last 3 Months or Most Recently Relevant to Health Maintenance Insurance [facility] Advance Directives For more information, please contact: [phone] * Full Code (Latest Code Status on File) Date Activated Date Inactivated Comments 06/07/2021 1:31 PM 06/08/2021 8:41 PM * Full Code Date Activated Date Inactivated Comments 04/21/2021 10:29 AM 04/22/2021 4:47 AM Care Teams Websphere Commerce Developer Relationship Specialty Start Date End Date Rakan Patel MD [address] [place] [address] PCP - General Family Medicine 03/11/21 Heber Cha MD [address] [place] [address] Surgeon Neurosurgery 02/12/15 Ruddy Benites PA [address] [facility] [address] [place] [address] Physician Fleet Administrative Assistant Neurosurgery 03/17/21
--- OUTSIDE RECORDS SUMMARY | 2024-11-19 01:32 | XMS_ITS | Clinical Summary ---
Author Organization [facility] Address [facility] [place] [address] Care Team Providers Care Esthetician Permanent Makeup Artist Name Role Phone None, Provider MD Primary [...] this topic Insurance MEDICAID AETNA Care Teams Esthetician Permanent Makeup Artist Relationship Specialty Start Date End Date None, Provider, PCP - General UNKNOWN PHYSICIAN SPECIALTY 11/23/23
--- OUTSIDE RECORDS SUMMARY | 2024-11-19 01:32 | XMS_ITS | Clinical Summary ---
Author Organization [facility] Address [address] [place] [address] Care Team Providers Care Maternity Floor Supervisor Name Role Phone Rakan Patel MD Primary Care Provider Heber Cha MD Unavailable [phone] Ruddy Benites Unavailable [phone] Allergies Active Allergy Reactions Criticality Noted Date [...] (04/28/2021): Added automatically from request for surgery [id number] Cervical radiculopathy 02/12/2015 Immunizations Immunization Administration Dates Next Due Influenza, Quadrivalent, Lucina l Culture-based MDCK, Preservative Free, Antibiotic Free, Intramuscular 04/11/2019 Influenza, Quadrivalent, Spl it, Preservative Free, Intramuscular 06/07/2020 Influenza, Trivalent, Preservative Free, Intramu scular 04/16/2015 Influenza, Unspecified 05/17/2021 Tdap 11/07/2012 Surgical History Surgery Date Site/Laterality Comments HYSTERECTOMY Hysterectomy - 03/06/13 (Added by TW Conv) CO DELIVERY ONLY Section - (Added by TW Conv) CO UNLISTED PROCEDURE BREAST Breast Surgery - Reduction [...] on file Legal Sex Female 12:30 PM SCRAP CHARGER Gender Identity Not on file Sexual Orientation Not on file Obstetrics History Last Filed Vital Signs Vital Sign Reading Time Taken Comments Blood Pressure 154/89 06/07/2023 10:56 AM SCRAP CHARGER Pulse 88 06/07/2023 10:56 AM SCRAP CHARGER Temperature 36.7 C (98 F) 11/23/2021 5:06 PM CDT Respiratory Rate 18 11/23/2021 8:55 PM CDT Oxygen Saturation 94% 06/07/2023 10:56 AM SCRAP CHARGER Inhaled Oxygen Concentration - - Weight 121.1 kg (267 lb) 06/07/2023 10:56 AM SCRAP CHARGER Height 177.8 cm (5' 10 ) 06/07/2023 10:56 AM SCRAP CHARGER Body Mass Index 38.31 06/07/2023 10:56 AM SCRAP CHARGER Plan of Treatment Health Maintenance Due Date [...] this topic Medical Devices Implanted Type Area Private Advisor Device Identifier Shelf Expiration Date Model / Serial / Lot Musculoskeletal Transplant [id number] 4-30mm Allograft Frozen [id number] Wedge Graft Bone - [id number] - [id number] Implanted:Qty: 1 on 06/07/2021 by Heber Cha MD at [facility] Bone N/A: Spine Cervical Musculoskeletal Transplant 01/30/2025 [id number] / [id number] / [employer] [id number] Xtend L32 Mm 2 Level Spine; Cervical; Anterior Plate Bone - [id number] Implanted:Qty: 1 on 06/07/2021 by Heber Cha MD at [facility] N/A: [facility] - [facility] 161.232 / / Description:Cervical Spine [employer] 161.314 Xtend Od4.2 Mm L14 Mm Variable Angle; Self Tap Spine Screw Bone - [id number] Implanted:Qty: 4 on 06/07/2021 by Heber Cha MD at [facility] N/A: Other - see comments [employer] 161.314 / / Description:Cervical Spine [employer] 665.614 L14 Mm Spine Distractor Surgical - [id number] Implanted:Qty: 2 on 06/07/2021 by Heber Cha MD at [facility] N/A: Other - see comments [employer] 665.994 / / Description:Cervical Spine Procedures Procedure Name [...] to request sample to be sent to [facility] for Hepatitis C Virus (HCV) RNA Detection and Quantitation by Real-Time Reverse Risk Mgr-PCR (RT-PCR). Current interpretive data was last revised on 2011 us Ruddy Velez MD LAB BLOOD ORDERABLES Final Re sult HISTORICAL RESULTS from Last 3 Months or Most Recently Relevant to Health Maintenance Insurance [employer] [place] [employer] [place] Advance Directives For more information, please contact: [phone] * Full Code (Latest Code Status on File) Date Activated Date Inactivated Comments 06/07/2021 1:31 PM 06/08/2021 8:41 PM * Full Code Date Activated Date Inactivated Comments 04/21/2021 10:29 AM 04/22/2021 4:47 AM Care Teams Maternity Floor Supervisor Relationship Specialty Start Date End Date Rakan Patel MD [address] [place] [address] PCP - General Family Medicine 03/11/21 Heber Cha MD [address] [facility] [address] [place] [address] Surgeon Neurosurgery 02/12/15 Ruddy Benites PA [address] [facility] [address] [place] [address] Physician Socket Puller Neurosurgery 03/17/21
--- NOTE | 2024-11-19 01:40 | ED_ITS ---
HPI - Recheck/Abnormal Lab/Rx General Chief Complaint: Recheck/Abnormal Lab/Rx <Lola Dupree PA-C - Last Filed: 11/19/24 03:24> Stated Complaint: high blood pressure <Lola Dupree PA-C - Last Filed: 11/19/24 03:24> Time Seen by Provider: 11/19/24 01:08 <Lola Dupree PA-C - Last Filed: 11/19/24 03:24> History of Present Illness HPI narrative: 54-year-old female with history of GERD, SORIN, CVA on 08/24/24 with no reported residual deficits presents to the emergency department with family at bedside with concerns for hypertension and right-sided arm and leg weakness. Patient states her last known well was tonight at 11:00 p.m.. Around 11 she began to feel ?heavy? and weak in her right arm and leg. She took her blood pressure and noted it to be 180s over 100s. She then took her blood pressure medication and rechecked it was 170s over 90s, then 5 minutes later retracted again and it was 140s over 80s. She was concerned that her blood pressure cuff was not working so came to the ED to get her blood pressure checked. She feels as though the weakness in her right arm and leg have improved but are still mildly present. She denies numbness, facial weakness. States she did have vision changes earlier but that has since resolved. States she also had a right-sided headache earlier but that has resolved. <Lola Dupree PA-C - Last Filed: 11/19/24 03:24> Related Data Home Medications: Home Medications ?Medication ?Instructions ?Recorded ?Confirmed ?Last Taken ?Type fezolinetant 45 mg tablet (Veozah) mg PO 11/16/23 08/29/24 Unknown History <CITLALLI Plunkett Last Filed: 11/19/24 03:24> Allergies/Adverse Reactions: Allergies Allergy/AdvReac Type Severity Reaction Status Date / Time vancomycin Allergy Unknown Unknown Verified 10/25/24 14:12 <CITLALLI Plunkett Last Filed: 11/19/24 03:24> Review of Systems 2 Review of Systems: All systems reviewed & are unremarkable except as noted in HPI and below <Lola Dupree PA-C - Last Filed: 11/19/24 03:24> FOR[facility]LY [facility] Past Medical History Medical History: Medical History Gastroesophageal reflux Pulmonary nodule Anxiety Chronic neck pain <Lola Dupree PA-C - Last Filed: 11/19/24 03:24> Surgical History Surgical History: Surgical History History of bunionectomy of left great toe History of bilateral breast reduction surgery History of hysterectomy History of carpal tunnel release History of section History of cervical spinal surgery History of arthroscopy of right shoulder <Lola Dupree PA-C - Last Filed: 11/19/24 03:24> Family History Family History: Family History Sibling Family history of suicide <Lola Dupree PA-C - Last Filed: 11/19/24 03:24> Social History Social History: Social History Social History: Surrogate medical decision maker: Tony Conklin (son) or Renzo Urbina (spouse). Code status: Full code. Smoking status: Never smoker Second hand tobacco smoke exposure: Yes Alcohol intake: current Alcohol use details: Social alcohol use in moderation. Substance use: current Substance use type: marijuana Last use: 09/2022 Do You Feel Safe in your Home?: Yes Lack of Transportation: No Lack of Food: Never True Current Housing: I Have Housing Concerned About Future Housing: No Difficulty Paying Gas/Electric Bills: No Difficulty Paying for Meds: No Currently Unemployed: YES Education: High School Diploma/GED Difficulty w/ Childcare or Family Care: No Living arrangements: with family Occupation/Education: unemployed Gender identity (if verbalized by the patient): Female Sexual Orientation (if Verbalized by the Patient): Straight or Heterosexual Spiritual care concerns: No <Lola Dupree PA-C - Last Filed: 11/19/24 03:24> Exam 2 Narrative: GENERAL: Well-appearing, well-nourished, and in no acute distress. HEAD: Normocephalic, atraumatic. EYES: EOMI. ENT: Nares clear, no rhinorrhea or epistaxis. Mucous membranes moist. NECK: Supple. CHEST: Clear to auscultation. No respiratory distress. HEART: Regular rate and rhythm. No murmur heard. Normal peripheral pulses. ABDOMEN: Soft, nontender, nondistended, normal active bowel sounds. EXTREMITIES: Normal range of motion. No edema. SKIN: Warm, dry, no rash. NEURO: Alert and oriented x4. Cranial nerves 2-12 intact. Mild right arm pronator drift and right leg drift. Sensation intact throughout. Strength otherwise 5/5 throughout. No dysarthria, no aphasia NIH Stroke Scale/Score (NIHSS) from [email or web address] on 11/19/2024 All calculations should be rechecked by clinician prior to use RESULT SUMMARY: 2 points NIH Stroke Scale INPUTS: 1A: Level of consciousness ?> 0 = Alert; keenly responsive 1B: Ask month and age ?> 0 = Both questi ons right 1C: 'Blink eyes' & 'squeeze hands' ?> 0 = Performs both tasks 2: Horizontal extraocular movements ?> 0 = Normal 3: Visual haile ?> 0 = No visual loss 4: Facial palsy ?> 0 = Normal symmetry 5A: Left arm motor drift ?> 1 = Drift, b ut doesn't hit bed 5B: Right arm motor drift ?> 0 = No drif t for 10 seconds 6A: Left leg motor drift ?> 0 = No drift for 5 seconds 6B: Right leg motor drift ?> 1 = Drift, but doesn't hit bed 7: Limb Ataxia ?> 0 = No ataxia 8: Sensation ?> 0 = Normal; no sensory l oss 9: Language/aphasia ?> 0 = Normal; no ap hasia 10: Dysarthria ?> 0 = Normal 11: Extinction/inattention ?> 0 = No abn ormality <Lola Dupree PA-C - Last Filed: 11/19/24 03:24> Course SENIOR CLINICAL SAS PROGRAMMER/PA Physician Supervision I agree with midlevel documentation; I performed the medical decision making component of this evaluation. <Irish Hilario MD - Last Filed: 11/19/24 03:46> Vital Signs Vital signs: Vital Signs Temperature 97.6 F 11/19/24 00:48 Pulse Rate 73 11/19/24 00:48 Respiratory Rate 18 11/19/24 00:48 Blood Pressure 146/81 H 11/19/24 00:48 Pulse Oximetry 98 11/19/24 00:48 Oxygen Delivery Room Air 11/19/24 00:48 Temperature 97.6 F 11/19/24 00:48 Pulse Rate 69 11/19/24 02:49 Respiratory Rate 14 11/19/24 02:49 Blood Pressure 160/95 H 11/19/24 02:49 Pulse Oximetry 100 11/19/24 02:49 Oxygen Delivery Room Air 11/19/24 00:48 <Lola Dupree PA-C - Last Filed: 11/19/24 03:24> Vital Signs Temperature 97.6 F 11/19/24 00:48 Pulse Rate 73 11/19/24 00:48 Respiratory Rate 18 11/19/24 00:48 Blood Pressure 146/81 H 11/19/24 00:48 Pulse Oximetry 98 11/19/24 00:48 Oxygen Delivery Room Air 11/19/24 00:48 Temperature 97.6 F 11/19/24 00:48 Pulse Rate 69 11/19/24 02:49 Respiratory Rate 14 11/19/24 02:49 Blood Pressure 160/95 H 11/19/24 02:49 Pulse Oximetry 100 11/19/24 02:49 Oxygen Delivery Room Air 11/19/24 00:48 <Irish Hilario MD - Last Filed: 11/19/24 03:46> MDM - Recheck/Abnormal Lab/Rx MDM Narrative Medical decision making narrative: 54-year-old female with history of SORIN, hypertension, GERD, CVA on 08/24/24 presents to the emergency department for hypertension and right arm and leg weakness that developed at 11:00 p.m. patient did have blurred vision but states this has since resolved. Upon arrival to the ED vital signs with blood pressure 146/81, otherwise unremarkable. Exam is notable for slight drift to the right arm and right leg totaling an NIHSS of 2. Pt meets an absolute contraindication to thrombolytics given her most recent CVA was within the past 3 months. I did consult symptoms [facility] stroke team and spoke with Dr. Lea who advises that he does not believe patient is an appropriate candidate given contraindication and low NIHSS. CT brain shows no intracranial hemorrhage, significant mass effect or midline shift. CTA brain carotid shows no alteration for all ER CT dated 08/24/2024, no large vessel occlusion. EKG shows normal sinus rhythm with nonspecific T-wave abnormality, normal GA interval, normal QRS duration, and QTC, no ischemic changes. Troponin undetectable. Patient updated on results. Neuro exam is unchanged. Plan to admit to the hospitalist with Neurology consult. Discussed with Dr. Patrick who agrees to consult. MRI orders placed. Discussed with hospitalist SENIOR CLINICAL SAS PROGRAMMER, Bettie, who agrees to admission. <Lola Dupree PA-C - Last Filed: 11/19/24 03:24> 54-year-old female with history of SORIN, hypertension, GERD, CVA on 08/24/24 presents to the emergency department for hypertension and right arm and leg weakness that developed at 11:00 p.m. patient did have blurred vision but states this has since resolved. Upon arrival to the ED vital signs with blood pressure 146/81, otherwise unremarkable. Exam is notable for slight drift to the right arm and right leg totaling an NIHSS of 2. Pt meets an absolute contraindication to thrombolytics given her most recent CVA was within the past 3 months. I did consult symptoms [facility] stroke team and spoke with Dr. Lea who advises that he does not believe patient is an appropriate candidate given contraindication and low NIHSS. CT brain shows no intracranial hemorrhage, significant mass effect or midline shift. CTA brain carotid shows no alteration for all ER CT dated 08/24/2024, no large vessel occlusion. EKG shows normal sinus rhythm with nonspecific T-wave abnormality, normal GA interval, normal QRS duration, and QTC, no ischemic changes. Troponin undetectable. Patient updated on results. D/w neurologist Dr Patrick who agrees to consult on patient, discussed with hospitalist who agrees to admission. Patient agreeable to plan for admission. < Irish Hilario MD - Last Filed: 11/19/24 03:46> Lab Data Result diagrams: 11/19/24 01:44 11/19/24 01:44 <Lola Dupree PA-C - Last Filed: 11/19/24 03:24> Labs: Lab Results 11/19/24 11/19/24 11/19/24 Range/Units 01:40 01:44 01:47 WBC 6.4 (4.5-10.0) K/mm3 RBC 3.89 L (4.2-5.4) M/mm3 Hgb 11.1 L (12.0-15.0) g/dL Hct 35.9 L (37.0-47.0) % MCV 92.3 (80-100) fl MCH 28.5 (26-34) pg MCHC 30.9 L (32-36) g/dl RDW 13.3 (11.5-14.5) % Plt Count 189 (150-375) k/mm3 MPV 9.9 (7.4-10.4) fl Immature Gran % (Auto) 0.2 (0-0.5) % Neut % (Auto) 49.0 (45.5-73.1) % Lymph % (Auto) 38.7 (18.3-44.2) % Leake % (Auto) 9.1 H (2.6-8.5) % Eos % (Auto) 2.7 (0-4.4) % Baso % (Auto) 0.3 (0.2-1.2) % Lymph # (Auto) 2.46 (0.9-3.2) K/mm3 Leake # (Auto) 0.6 (0.1-0.6) K/mm3 Eos # (Auto) 0.2 (0-0.3) K/mm3 Baso # (Auto) 0.0 (0.0-0.1) K/mm3 Abs Immat Gran (auto) 0.01 (0.00-0.031) K/mm3 Absolute Neuts (auto) 3.1 (1.3-6.7) K/mm3 Absolute Nucleated RBC 0.000 (0.0-0.012) K/mm3 Nucleated RBC % 0.0 (0.0-0.2) % PT 13.0 (11.1-14.7) Seconds INR 0.9 APTT 30.0 (22.3-36.8) Seconds Sodium 141 (137-145) mmol/L Potassium 3.6 (3.4-5.0) mmol/L Chloride 105 (98-107) mmol/L Carbon Dioxide 29 (22-30) mmol/L Anion Gap 7 (4-12) mmol/L BUN 11 D (7-17) mg/dL Creatinine 0.69 L (0.7-1.0) mg/dL Estim Creat Clear Calc Not Reportable Estimated GFR > 60 (59 - ) Glucose 110 (65-110) mg/dL POC Capillary Glucose 113 H (65-105) mg/dl Calcium 8.9 (8.4-10.2) mg/dL Total Bilirubin 0.4 (0.2-1.3) mg/dL AST 39 H (14-36) U/L ALT 49 H (6-35) U/L Alkaline Phosphatase 98 (38-126) U/L Troponin I < 0.012 (0.000-0.034) ng/mL Total Protein 7.0 (6.3-8.2) g/dL Albumin 3.8 (3.5-5.1) g/dL Urine Color (Yellow) Urine Appearance (Clear) Urine pH (5.0-9.0) Ur Specific [place] (1.001-1.035) Urine Protein (Negative) mg/dL Urine Glucose (UA) (Negative) mg/dL Urine Ketones (Negative) mg/dL Ur Blood (Man) (Negative) Urine Nitrate (Negative) Urine Bilirubin (Negative) Urine Urobilinogen (<2.0) mg/dL Leukocyte Esterase Rfl (Negative) BHASKAR/UL 05/06/25 Range/Units 02:39 WBC (4.5-10.0) K/mm3 RBC (4.2-5.4) M/mm3 Hgb (12.0-15.0) g/dL Hct (37.0-47.0) % MCV (80-100) fl MCH (26-34) pg MCHC (32-36) g/dl RDW (11.5-14.5) % Plt Count (150-375) k/mm3 MPV (7.4-10.4) fl Immature Gran % (Auto) (0-0.5) % Neut % (Auto) (45.5-73.1) % Lymph % (Auto) (18.3-44.2) % Leake % (Auto) (2.6-8.5) % Eos % (Auto) (0-4.4) % Baso % (Auto) (0.2-1.2) % Lymph # (Auto) (0.9-3.2) K/mm3 Leake # (Auto) (0.1-0.6) K/mm3 Eos # (Auto) (0-0.3) K/mm3 Baso # (Auto) (0.0-0.1) K/mm3 Abs Immat Gran (auto) (0.00-0.031) K/mm3 Absolute Neuts (auto) (1.3-6.7) K/mm3 Absolute Nucleated RBC (0.0-0.012) K/mm3 Nucleated RBC % (0.0-0.2) % PT (11.1-14.7) Seconds INR APTT (22.3-36.8) Seconds Sodium (137-145) mmol/L Potassium (3.4-5.0) mmol/L Chloride (98-107) mmol/L Carbon Dioxide (22-30) mmol/L Anion Gap (4-12) mmol/L BUN (7-17) mg/dL Creatinine (0.7-1.0) mg/dL Estim Creat Clear Calc Estimated GFR (59 - ) Glucose (65-110) mg/dL POC Capillary Glucose (65-105) mg/dl Calcium (8.4-10.2) mg/dL Total Bilirubin (0.2-1.3) mg/dL AST (14-36) U/L ALT (6-35) U/L Alkaline Phosphatase (38-126) U/L Troponin I (0.000-0.034) ng/mL Total Protein (6.3-8.2) g/dL Albumin (3.5-5.1) g/dL Urine Color Yellow (Yellow) Urine Appearance Clear (Clear) Urine pH 6.0 (5.0-9.0) Ur Specific [place] 1.028 (1.001-1.035) Urine Protein Negative (Negative) mg/dL Urine Glucose (UA) Negative (Negative) mg/dL Urine Ketones Negative (Negative) mg/dL Ur Blood (Man) Negative (Negative) Urine Nitrate Negative (Negative) Urine Bilirubin Negative (Negative) Urine Urobilinogen 0.2 (<2.0) mg/dL Leukocyte Esterase Rfl Negative (Negative) BHASKAR/UL <Lola Dupree PA-C - Last Filed: 11/19/24 03:24> Lab Results 11/19/24 11/19/24 11/19/24 Range/Units 01:40 01:44 01:47 WBC 6.4 (4.5-10.0) K/mm3 RBC 3.89 L (4.2-5.4) M/mm3 Hgb 11.1 L (12.0-15.0) g/dL Hct 35.9 L (37.0-47.0) % MCV 92.3 (80-100) fl MCH 28.5 (26-34) pg MCHC 30.9 L (32-36) g/dl RDW 13.3 (11.5-14.5) % Plt Count 189 (150-375) k/mm3 MPV 9.9 (7.4-10.4) fl Immature Gran % (Auto) 0.2 (0-0.5) % Neut % (Auto) 49.0 (45.5-73.1) % Lymph % (Auto) 38.7 (18.3-44.2) % Leake % (Auto) 9.1 H (2.6-8.5) % Eos % (Auto) 2.7 (0-4.4) % Baso % (Auto) 0.3 (0.2-1.2) % Lymph # (Auto) 2.46 (0.9-3.2) K/mm3 Leake # (Auto) 0.6 (0.1-0.6) K/mm3 Eos # (Auto) 0.2 (0-0.3) K/mm3 Baso # (Auto) 0.0 (0.0-0.1) K/mm3 Abs Immat Gran (auto) 0.01 (0.00-0.031) K/mm3 Absolute Neuts (auto) 3.1 (1.3-6.7) K/mm3 Absolute Nucleated RBC 0.000 (0.0-0.012) K/mm3 Nucleated RBC % 0.0 (0.0-0.2) % PT 13.0 (11.1-14.7) Seconds INR 0.9 APTT 30.0 (22.3-36.8) Seconds Sodium 141 (137-145) mmol/L Potassium 3.6 (3.4-5.0) mmol/L Chloride 105 (98-107) mmol/L Carbon Dioxide 29 (22-30) mmol/L Anion Gap 7 (4-12) mmol/L BUN 11 D (7-17) mg/dL Creatinine 0.69 L (0.7-1.0) mg/dL Estim Creat Clear Calc Not Reportable Estimated GFR > 60 (59 - ) Glucose 110 (65-110) mg/dL POC Capillary Glucose 113 H (65-105) mg/dl Calcium 8.9 (8.4-10.2) mg/dL Total Bilirubin 0.4 (0.2-1.3) mg/dL AST 39 H (14-36) U/L ALT 49 H (6-35) U/L Alkaline Phosphatase 98 (38-126) U/L Troponin I < 0.012 (0.000-0.034) ng/mL Total Protein 7.0 (6.3-8.2) g/dL Albumin 3.8 (3.5-5.1) g/dL Urine Color (Yellow) Urine Appearance (Clear) Urine pH (5.0-9.0) Ur Specific [place] (1.001-1.035) Urine Protein (Negative) mg/dL Urine Glucose (UA) (Negative) mg/dL Urine Ketones (Negative) mg/dL Ur Blood (Man) (Negative) Urine Nitrate (Negative) Urine Bilirubin (Negative) Urine Urobilinogen (<2.0) mg/dL Leukocyte Esterase Rfl (Negative) BHASKAR/UL 11/19/24 Range/Units 02:39 WBC (4.5-10.0) K/mm3 RBC (4.2-5.4) M/mm3 Hgb (12.0-15.0) g/dL Hct (37.0-47.0) % MCV (80-100) fl MCH (26-34) pg MCHC (32-36) g/dl RDW (11.5-14.5) % Plt Count (150-375) k/mm3 MPV (7.4-10.4) fl Immature Gran % (Auto) (0-0.5) % Neut % (Auto) (45.5-73.1) % Lymph % (Auto) (18.3-44.2) % [place] % (Auto) (2.6-8.5) % Eos % (Auto) (0-4.4) % Baso % (Auto) (0.2-1.2) % Lymph # (Auto) (0.9-3.2) K/mm3 [place] # (Auto) (0.1-0.6) K/mm3 Eos # (Auto) (0-0.3) K/mm3 Baso # (Auto) (0.0-0.1) K/mm3 Abs Immat Gran (auto) (0.00-0.031) K/mm3 Absolute Neuts (auto) (1.3-6.7) K/mm3 Absolute Nucleated RBC (0.0-0.012) K/mm3 Nucleated RBC % (0.0-0.2) % PT (11.1-14.7) Seconds INR APTT (22.3-36.8) Seconds Sodium (137-145) mmol/L Potassium (3.4-5.0) mmol/L Chloride (98-107) mmol/L Carbon Dioxide (22-30) mmol/L Anion Gap (4-12) mmol/L BUN (7-17) mg/dL Creatinine (0.7-1.0) mg/dL Estim Creat Clear Calc Estimated GFR (59 - ) Glucose (65-110) mg/dL POC Capillary Glucose (65-105) mg/dl Calcium (8.4-10.2) mg/dL Total Bilirubin (0.2-1.3) mg/dL AST (14-36) U/L ALT (6-35) U/L Alkaline Phosphatase (38-126) U/L Troponin I (0.000-0.034) ng/mL Total Protein (6.3-8.2) g/dL Albumin (3.5-5.1) g/dL Urine Color Yellow (Yellow) Urine Appearance Clear (Clear) Urine pH 6.0 (5.0-9.0) Ur Specific [place] 1.028 (1.001-1.035) Urine Protein Negative (Negative) mg/dL Urine Glucose (UA) Negative (Negative) mg/dL Urine Ketones Negative (Negative) mg/dL Ur Blood (Man) Negative (Negative) Urine Nitrate Negative (Negative) Urine Bilirubin Negative (Negative) Urine Urobilinogen 0.2 (<2.0) mg/dL Leukocyte Esterase Rfl Negative (Negative) BHASKAR/UL <Irish Hilario MD - Last Filed: 11/19/24 03:46> Critical Care Time Critical Care Time Critical Care Time: Yes <Irish Hilario MD - Last Filed: 11/19/24 03:46> Total Critical Care Time: 31 <Irish Hilario MD - Last Filed: 11/19/24 03:46> Discharge Plan Discharge Clinical Impression: Right sided weakness <Lola Dupree PA-C - Last Filed: 11/19/24 03:24> Patient Disposition: Still a Patient <CITLALLI Plunkett Last Filed: 11/19/24 03:24> Condition: Serious <CITLALLI Plunkett Last Filed: 11/19/24 03:24> Patient Language: [place]se <CITLALLI Plunkett Last Filed: 11/19/24 03:24> Prescriptions: No Action (DME) blood pressure monitor [Blood Pressure Kit] Kit See Rx Instructions .Route Qty: 1 0RF Rx Instructions: As directed Veozah 45 mg tablet PO montelukast [Singulair] 10 mg tablet 10 mg PO DAILY Qty: 90 2RF pantoprazole 40 mg tablet,delayed release (DR/EC) See Rx Instructions .ROUTE .COMPLEX Qty: 90 2RF Dose Instruction: TAKE 1 TABLET BY MOUTH EVERY DAY IN THE MORNING Rx Instructions: TAKE 1 TABLET BY MOUTH EVERY DAY IN THE MORNING methocarbamol 750 mg tablet 750 mg PO TID PRN (Reason: muscle spasm) Qty: 60 0RF acetaminophen-codeine 300-30 mg tablet 1 tablet PO Q8H PRN (Reason: pain) Qty: 12 0RF albuterol sulfate 90 mcg/actuation HFA aerosol inhaler 2 inh INHALATION Q4-6H PRN (Reason: shortness of breath or wheezing) Qty: 8.5 2RF ipratropium-albuterol 0.5 mg-3 mg(2.5 mg base)/3 mL solution for nebulization 3 ml INHALATION Q4H PRN (Reason: shortness of breath or wheezing) Qty: 90 3RF meloxicam 7.5 mg tablet 7.5 mg PO BID Qty: 60 2RF gabapentin 600 mg tablet 600 mg PO QID Qty: 120 0RF valacyclovir [Valtrex] 500 mg tablet 500 mg PO DAILY Qty: 90 3RF <Lola Dupree PA-C - Last Filed: 11/19/24 03:24> Follow-up/Referrals: Rakan Patel MD [Primary Care Provider] - <Lola Dupree PA-C - Last Filed: 11/19/24 03:24>
[2024-11-19 01:44] LABS: Glucose Point of Care 113 mg/dl (65-105)
[2024-11-19 01:52] LABS: Basophils Percent Auto 0.3 % (0.2-1.2); Eosinophils Absolute Auto 0.2 K/mm3 (0-0.3); Eosinophils Percent Auto 2.7 % (0-4.4); Hematocrit 35.9 % (37.0-47.0); Hemoglobin 11.1 g/dL (12.0-15.0); Immature Granulocyte Absolute 0.01 K/mm3 (0.00-0.031); Immature Granulocyte Percent A 0.2 % (0-0.5); Lymphocytes Absolute Auto 2.46 K/mm3 (0.9-3.2); Lymphocytes Percent Auto 38.7 % (18.3-44.2); Mean Corpuscular HGB Conc 30.9 g/dl (32-36); Mean Corpuscular Hemoglobin 28.5 pg (26-34); Mean Corpuscular Volume 92.3 fl (80-100); Mean Platelet Volume 9.9 fl (7.4-10.4); Monocytes Absolute Auto 0.6 K/mm3 (0.1-0.6); Monocytes Percent Auto 9.1 % (2.6-8.5); Neutrophils Absolute Auto 3.1 K/mm3 (1.3-6.7); Platelet Count Result 189 k/mm3 (150-375); Red Blood Count 3.89 M/mm3 (4.2-5.4); Red Cell Distribution Width 13.3 % (11.5-14.5); White Blood Count 6.4 K/mm3 (4.5-10.0)
[2024-11-19 02:02] LABS: Alanine Aminotransferase 49 U/L (6-35); Albumin Level 3.8 g/dL (3.5-5.1); Alkaline Phosphatase 98 U/L (38-126); Anion Gap 7 mmol/L (4-12); Aspartate Amino Transferase 39 U/L (14-36); Bilirubin,Total 0.4 mg/dL (0.2-1.3); Blood Urea Nitrogen 11 mg/dL (7-17); Calcium 8.9 mg/dL (8.4-10.2); Carbon Dioxide 29 mmol/L (22-30); Chloride 105 mmol/L (98-107); Estimated Glomerular Filt Rate > 60; Glucose 110 mg/dL (65-110); Potassium 3.6 mmol/L (3.4-5.0); Sodium 141 mmol/L (137-145)
[2024-11-19 02:14] LABS: Troponin I < 0.012 ng/mL (0.000-0.034)
[2024-11-19 02:18] LABS: INR 0.9
[2024-11-19 02:50] LABS: Add Urine Microscopic? NO; Appearance Urine Clear (Clear); Bilirubin Urine Negative (Negative); Blood Urine Negative (Negative); Color Urine Yellow (Yellow); Glucose Urine UA Negative (Negative); Ketones Urine Negative (Negative); Leukocyte Esterase Ur Negative LEU/UL (Negative); Nitrate Urine Negative (Negative); Protein Urine Negative (Negative); Specific Grav Ur 1.028 (1.001-1.035); Urobilinogen Urine 0.2 mg/dL (<2.0)
[2024-11-19] MEDS: ASPIRIN 81 MG CHEWABLE TABLET 324 MG PO (03:27)
--- NOTE | 2024-11-19 04:05 | P.HP_ITS ---
H&P: HPI History of Present Illness Date/Time: 11/19/24 04:05 Chief Complaint: High blood pressure Narrative: This 64-year-old female patient with history of GERD, previous CVA and August of 2024 treated [facility], anxiety, chronic neck pain comes to the emergency room with complaints of having acute onset right arm and right leg heaviness today with associated high blood pressure. Patient's last known well was at 11:00 p.m. yesterday. Patient states she was ?yelling at them kids when she noticed she was having weakness on the right side. She check her blood pressure and that time and was noted to be 184/106. Patient states she took a few minutes later in her blood pressure was 140s over 80s but she still felt weak so she decided to come to the emergency room for evaluation. At no point did she endorse any chest pain, dyspnea, headache. She did say she had some blurriness to her vision in both eyes that as her blood pressure came down that has resolved. Upon presentation to the emergency room her NIH was 2 for drift of both the right upper and lower extremities without touching bed. Patient is a nonsmoker, she admits to social alcohol approximately once a month and states she uses marijuana 2 to 3 times a week to help with her sleep. She denies any head trauma, injury or inciting event and she denies nausea, vomiting, diarrhea. Patient at this time actually states that her weakness is resolving as well. I reviewed with patient what medication she was placed on after her CVA in August and she denies taking any aspirin, Plavix, statin. In the emergency room workup was performed with labs, imaging EKG. Labs including CBC and CMP were unremarkable. Coags are normal. Urinalysis is negative. Vital signs are stable. EKG showing normal sinus rhythm with a nonspecific T-wave abnormality. No other signs of acute ischemia. CT head was negative in CTA head and neck was also negative. This patient was discussed with the [facility] stroke team, Dr. Lea, and he determined that patient is not a candidate for TNK given she received it just recently in August. She is therefore stable to remain here and be evaluated by our neurology team. Review of Systems Review of Systems: All systems reviewed & are unremarkable except as noted in HPI and below [facility] Past Medical History Medical History (Updated 11/19/24 @ 04:15 by SARA Carrillo) Hypertension Gastroesophageal reflux Pulmonary nodule Anxiety Chronic neck pain Surgical History Surgical History History of bunionectomy of left great toe History of bilateral breast reduction surgery History of hysterectomy History of carpal tunnel release History of section History of cervical spinal surgery History of arthroscopy of right shoulder Family History Family History Sibling Family history of suicide Social History Social History Social History: Surrogate medical decision maker: Tony Conklin (son) or Renzo Urbina (spouse). Code status: Full code. Smoking status: Never smoker Second hand tobacco smoke exposure: Yes Alcohol intake: current Alcohol use details: Social alcohol use in moderation. Substance use: current Substance use type: marijuana Last use: 09/2022 Do You Feel Safe in your Home?: Yes Lack of Transportation: No Lack of Food: Never True Current Housing: I Have Housing Concerned About Future Housing: No Difficulty Paying Gas/Electric Bills: No Difficulty Paying for Meds: No Currently Unemployed: YES Education: High School Diploma/GED Difficulty w/ Childcare or Family Care: No Living arrangements: with family Occupation/Education: unemployed Gender identity (if verbalized by the patient): Female Sexual Orientation (if Verbalized by the Patient): Straight or Heterosexual Spiritual care concerns: No Meds Home Medications and Allergies Home Medications ?Medication ?Instructions ?Recorded ?Confirmed ?Type albuterol sulfate 90 mcg/actuation 2 inh inhalation Q4-6H PRN 06/19/23 08/29/24 Rx aerosol inhaler shortness of breath or wheezing #8.5 grams ipratropium 0.5 mg-albuterol 3 mg 3 ml inhalation Q4H PRN shortness 06/19/23 08/29/24 Rx (2.5 mg base)/3 mL nebulization of breath or wheezing #90 mL soln meloxicam 7.5 mg tablet 7.5 mg PO BID #60 tabs 06/19/23 08/29/24 Rx blood pressure monitor (Blood #1 ea 11/16/23 08/29/24 Rx Pressure Kit) fezolinetant 45 mg tablet ([place]oz[place]) mg PO 11/16/23 08/29/24 History gabapentin 600 mg tablet 600 mg PO QID #120 tabs 05/25/24 08/29/24 Rx methocarbamol 750 mg tablet 750 mg PO TID PRN muscle spasm #60 08/29/24 08/29/24 Rx tabs montelukast 10 mg tablet 10 mg PO DAILY #90 tabs 08/29/24 08/29/24 Rx (Singulair) pantoprazole 40 mg tablet,delayed See Rx Instructions .Route 08/29/24 08/29/24 Rx release .COMPLEX #90 tabs valacyclovir 500 mg tablet 500 mg PO DAILY #90 tabs 09/27/24 Rx (Valtrex) Allergies Allergy/AdvReac Type Severity Reaction Status Date / Time vancomycin Allergy Unknown Unknown Verified 10/25/24 14:12 Vital Signs Vital Signs - 24 hr 11/19/24 00:48 11/19/24 01:45 11/19/24 02:49 Temperature 97.6 F Pulse Rate 73 69 Respiratory Rate 18 14 Blood Pressure 146/81 H 160/95 H Pulse Oximetry 98 100 100 Oxygen Delivery Room Air Exam Const: General: comfortable and no acute distress Other: Pleasant, sleeping female sitting on stretcher at this time no acute distress. She arouses easily to voice. HENMT: Face/Nose/Sinus: Normal nares present and no epistaxis Mouth: Yes moist mucous membranes Other: No noted facial droop Eyes: General: appearance normal, both eyes and all related structures Sclera: sclerae normal Pupils: Equal, round and reactive pupils present EOM: EOMs intact bilaterally Neck: Neck: supple and no JVD Carotids: no bruits Chest: Other: Nontender Resp: Effort & Inspection: normal respiratory effort Auscultation: clear to auscultation bilaterally Cardio: Rate: regular rate Rhythm: regular rhythm Heart sounds: no gallops, no murmurs and no rubs GI: GI Palp: Yes Soft to palpation and No Tenderness to palpation present (GI) Auscultation: normal bowel sounds Skin: General skin exam: normal color, no rashes or lesions noted and no erythema Lesions: no lesions noted Rashes: no rashes noted Wounds: no wounds Neuro: Speech: normal speech Motor exam (neuro): 5/5 motor strength present throughout and Normal motor muscle tone present throughout Sensory Exam: normal sensation Other: NIH for this provider is 0 at 4:00 a.m. Extrem: General: normal to inspection, no edema and no pedal edema Other: Freely and equally moves all extremities well without deficit Psych: Mental Status: mental status grossly normal H&P: Results Labs Labs: Short CBC 11/19/24 Range/Units 01:44 WBC 6.4 (4.5-10.0) K/mm3 Hgb 11.1 L (12.0-15.0) g/dL Hct 35.9 L (37.0-47.0) % Plt Count 189 (150-375) k/mm3 BMP 11/19/24 01:44 Sodium 141 Potassium 3.6 Chloride 105 Carbon Dioxide 29 BUN 11 D Creatinine 0.69 L Glucose 110 Calcium 8.9 Cardiac Enzymes 11/19/24 Range/Units 01:44 Troponin I < 0.012 (0.000-0.034) ng/mL Liver Function 11/19/24 Range/Units 01:44 Total Bilirubin 0.4 (0.2-1.3) mg/dL AST 39 H (14-36) U/L ALT 49 H (6-35) U/L Alkaline Phosphatase 98 (38-126) U/L Albumin 3.8 (3.5-5.1) g/dL Urine 11/19/24 Range/Units 02:39 Urine Color Yellow (Yellow) Urine Appearance Clear (Clear) Urine pH 6.0 (5.0-9.0) Ur Specific [place] 1.028 (1.001-1.035) Urine Protein Negative (Negative) mg/dL Urine Glucose (UA) Negative (Negative) mg/dL Assessment and Plan Assessment and plan (1) Right sided weakness: Code(s): R53.1 - Weakness Status: Acute Assessment and Plan: * Last known well 2300 yesterday * Initial NIH score of 2 * Patient was determined to not be a candidate for thrombolytics by the u stroke team * Patient will be kept here and monitored with appropriate workup and Neurology consulted. * Fall precautions * Consult neurology * MRI with and without of brain * Echo * Carotid Dopplers (2) Hypertension: Code(s): I10 - Essential (primary) hypertension Status: Chronic Assessment and Plan: * Acute on chronic exacerbation * Continue home medications (3) Headache: Code(s): R51 - Headache Status: Acute Assessment and Plan: * Most likely secondary to hypertension. * P.r.n. analgesia as needed (4) GERD (gastroesophageal reflux disease): Code(s): K21.9 - Gastro-esophageal reflux disease without esophagitis Status: Chronic Assessment and Plan: * Continue PPI therapy Quality VTE Prophylaxis VTE prophylaxis: mechanical ordered Stroke Scale Stroke scale date:: 11/19/24 Stroke scale time:: 04:00 1a Level of conciousness: alert-0 1b Level of consciousness: answers both correctly-0 1c Level of consciousness: obeys both correctly-0 2 Best gaze: normal-0 3 Visual: no visual loss-0 4 Facial palsy: normal-0 5a Motor: left arm: no drift-0 5b Motor: right arm: no drift-0 6a Motor: left leg: no drift-0 6b Motor: right leg: no drift-0 7 Limb ataxia: absent-0 8 Sensory: normal-0 9 Best language: no aphasia-0 10 Dysarthria: normal-0 11 Extinction and inattention: no abnormality-0 Level:: 0 Comment: Initial NIH of 2 is now 0 Pharmacological Therapy Was IV thrombolytic therapy given?: No Contraindications to IV thrombolytic therapy: medical contraindication (Patient with thrombolytics therapy in August) Hospitalist MIPS Advance Care Plan I have confirmed that the patient's Advanced Care Plan is present, code status is documented, or surrogate decision maker is listed in patient medical record.: Yes Medication Reconciliation I have utilized all available resources to obtain, update and review the patients current medications (includes all prescriptions, OTC, herbals, cannabis, and nutritional supplements).: Yes
--- NOTE | 2024-11-19 04:30 | ADMGEN ---
This patient, Irma Urbina, was admitted to IMU Room 200-01. Patient/family oriented to hospital policies and general routines including ID bracelet, bed and alarms, visiting hours, pain management, procedures, bathroom and other care routines, personal items, smoking policy, room service/diet, and visiting hours. Information on how to activate the Rapid Response Team has been discussed. Patient/Family are encouraged to report perceived risks to care and to ask questions if they do not understand what they are told or what they should do.
[2024-11-19] MEDS: GABAPENTIN 300 MG CAPSULE 600 MG PO ×2 (08:17→12:59)
[2024-11-19] MEDS: MONTELUKAST SODIUM 10 MG TABLET PO (08:17)
[2024-11-19] MEDS: PANTOPRAZOLE 40 MG TABLET PO (08:17)
--- OUTSIDE RECORDS SUMMARY | 2024-11-19 11:40 | XMS_ITS | Clinical Summary ---
Author Organization [facility] Address [address] [place] [address] Care Team Providers Care Golf Ball Cover Treater Name Role Phone Rakan Patel MD Primary Care Provider Heber Cha MD Unavailable [phone] Ruddy Benites Unavailable [phone] Allergies Active Allergy Reactions Criticality Noted Date [...] (04/28/2021): Added automatically from request for surgery [id number] Cervical radiculopathy 02/12/2015 Immunizations Immunization Administration Dates Next Due Influenza, Quadrivalent, Lucina l Culture-based MDCK, Preservative Free, Antibiotic Free, Intramuscular 04/11/2019 Influenza, Quadrivalent, Spl it, Preservative Free, Intramuscular 06/07/2020 Influenza, Trivalent, Preservative Free, Intramu scular 04/16/2015 Influenza, Unspecified 05/17/2021 Tdap 11/07/2012 Surgical History Surgery Date Site/Laterality Comments HYSTERECTOMY Hysterectomy - 03/06/13 (Added by TW Conv) [place] DELIVERY ONLY Section - (Added by TW Conv) [place] UNLISTED PROCEDURE BREAST Breast Surgery - Reduction [...] on file Legal Sex Female 12:30 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 Gender Identity Not on file Sexual Orientation Not on file Obstetrics History Last Filed Vital Signs Vital Sign Reading Time Taken Comments Blood Pressure 154/89 06/07/2023 10:56 AM TRAVEL ADMINISTRATOR Pulse 88 06/07/2023 10:56 AM TRAVEL ADMINISTRATOR Temperature 36.7 C (98 F) 11/23/2021 5:06 PM CDT Respiratory Rate 18 11/23/2021 8:55 PM CDT Oxygen Saturation 94% 06/07/2023 10:56 AM TRAVEL ADMINISTRATOR Inhaled Oxygen Concentration - - Weight 121.1 kg (267 lb) 06/07/2023 10:56 AM TRAVEL ADMINISTRATOR Height 177.8 cm (5' 10 ) 06/07/2023 10:56 AM TRAVEL ADMINISTRATOR Body Mass Index 38.31 06/07/2023 10:56 AM TRAVEL ADMINISTRATOR Plan of Treatment Health Maintenance Due Date [...] this topic Medical Devices Implanted Type Area Assembler Arranger Device Identifier Shelf Expiration Date Model / Serial / Lot Musculoskeletal Transplant [id number] 4-30mm Allograft Frozen [id number] Wedge Graft Bone - [id number] - [id number] Implanted:Qty: 1 on 06/07/2021 by Heber Cha MD at [facility] Bone N/A: Spine Cervical Musculoskeletal Transplant 01/30/2025 [id number] / [id number] / [employer] [id number] Xtend L32 Mm 2 Level Spine; Cervical; Anterior Plate Bone - [id number] Implanted:Qty: 1 on 06/07/2021 by Heber Cha MD at [facility] N/A: Other - see comments [facility] [employer] 161.232 / / Description:Cervical Spine [employer] 161.314 Xtend Od4.2 Mm L14 Mm Variable Angle; Self Tap Spine Screw Bone - [id number] Implanted:Qty: 4 on 06/07/2021 by Heber Cha MD at [facility] N/A: Other - see comments [employer] 161.314 / / Description:Cervical Spine [employer] 665.614 L14 Mm Spine Distractor Surgical - [id number] Implanted:Qty: 2 on 06/07/2021 by Heber Cha MD at [facility] N/A: Other - see comments [employer] 665.504 / / Description:Cervical Spine Procedures Procedure Name [...] to request sample to be sent to [facility] for Hepatitis C Virus (HCV) RNA Detection and Quantitation by Real-Time Reverse Contract Coordinator-PCR (RT-PCR). Current interpretive data was last revised on 2011 us Ruddy Velez MD LAB BLOOD ORDERABLES Final Re sult HISTORICAL RESULTS from Last 3 Months or Most Recently Relevant to Health Maintenance Insurance [employer] Advance Directives For more information, please contact: [phone] * Full Code (Latest Code Status on File) Date Activated Date Inactivated Comments 06/07/2021 1:31 PM 06/08/2021 8:41 PM * Full Code Date Activated Date Inactivated Comments 04/21/2021 10:29 AM 04/22/2021 4:47 AM Care Teams Golf Ball Cover Treater Relationship Specialty Start Date End Date Rakan Patel MD [address] [place] [address] PCP - General Family Medicine 03/11/21 Heber Cha MD [address] [facility] [address] [place] [address] Surgeon Neurosurgery 02/12/15 Ruddy Benites PA [address] [facility] [address] [place] [address] Physician Personnel Clerk Neurosurgery 03/17/21
--- OUTSIDE RECORDS SUMMARY | 2024-11-19 11:40 | XMS_ITS | Clinical Summary ---
Author Organization [facility] Address [address] 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 This disclosure is being madepursuant to the Care Everywhere program and may not contain all information available regarding this patient. 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 Overview (08/24/2024): C6-7 Hoarseness 08/13/2014 Encounters Date Type Department Care Team Description 08/26/2024 6:52 PM [facility] - 08/26/2024 8:50 PM [facility] Emergency [facility] EMERGENCY DEPARTMENT [address] [place] [address] Headache, unspecified headache type Discharge Disposition: Left Against Medical Advice/Discontinued Care 08/26/2024 Travel 08/24/2024 4:19 AM [facility] - 08/25/2024 2:34 PM [facility] Hospital Encounter [facility] 3N ICU [address] [place] [address] Marcos Lucio MD Neurology Discharge Disposition: Home [...] Recorded Patient Health Questionnaire-2 Score 0 08/25/2024 [facility] [place] of Occupat ional Health - Occupational Stress [...] any time in the past [address] [facility], were you homeless or living in a assisted (including now)? No 08/24/2024 Comments Unknown Sex and Gender Information Value Date Recorded Sex Assigned at Not on file Legal Sex Female 4:56 AM [facility] Gender Identity Not on file Sexual Orientation Not on file Last Filed Vital Signs Vital Sign Reading Time Taken Comments Blood Pressure 136/84 08/26/2024 2:00 PM [facility] Pulse 75 08/26/2024 2:00 PM [facility] Temperature 37.1 C (98.7 F) 08/26/2024 2:00 PM [facility] Respiratory Rate 18 08/26/2024 2:00 PM [facility] Oxygen Saturation 100% 08/26/2024 2:00 PM [facility] Inhaled Oxygen Concentration - - Weight 108.9 kg (240 lb) 08/26/2024 2:00 PM [facility] Height 177.8 cm (5' 10 ) 08/26/2024 2:00 PM [facility] Body Mass Index 34.44 08/26/2024 2:00 PM [facility] Plan of Treatment Upcoming Encounters Date Type Department Care Team (Late st Contact Info) Description 01/03/2025 10:00 AM CDT Office Visit [facility] - Neurology [address] [place] [address] Cheryl Hatch MD [address] [place] [address] Health Maintenance Due Date Last Done Comments [...] SPINE WO CONTRAST STAT 08/26/2024 4:36 PM [facility] Headache, unspecified headache type CT HEAD WO CONTRAST STAT 08/26/2024 4 :36 PM [facility] Headache, unspecified headache type ERYTHROCYTE SEDIMENTATION RATE STAT 08/26/2024 4:06 PM [facility] C-REACTIVE PROTEIN GIORGIO 08/26/2024 4: 06 PM [facility] COMPREHENSIVE METABOLIC PANEL STAT 08/26/2024 4:06 PM [facility] CBC W AUTO DIFFERENTIAL STAT 08/26/2024 4:[address] HEAD WO CONTRAST Routine 08/25/2024 3 :40 AM [facility] Right sided weakness CBC W/O DIFFERENTIAL Routine 08/25/2024 1:37 AM [facility] BASIC METABOLIC PANEL (CALCIUM TOTAL) Routine 08/25/2024 1:37 AM [facility] GLUCOSE - POINT OF CARE Routine 08/25/2024 1:35 AM [facility] GLUCOSE - POINT OF CARE Routine 08/24/2024 5:39 PM [facility] MRI BRAIN WO CONTRAST Routine 08/24/2024 5:04 PM [facility] Right sided weakness GLUCOSE - POINT OF CARE Routine 08/24/2024 12:33 PM [facility] XR CHEST 1VW PORTABLE Routine 08/24/2024 9:11 AM [facility] Right sided weakness OT EVAL AND TREAT Routine 08/24/2024 8:3 8 AM [facility] TROPONIN-I HIGH SENSITIVE REFLEX 1HOUR Timed 08/24/2024 7:57 AM [facility] LIPID PROFILE Routine 08/24/2024 6:19 AM [facility] TROPONIN-I HIGH SENSITIVE BASELINE + 1HR STAT 08/24/2024 6:19 AM [facility] OT EVAL AND TREAT Routine 08/24/2024 6:1 5 AM [facility] EKG 12-LEAD STAT 08/24/2024 4:50 AM [facility] Right sided weakness BLOOD TYPE VERIFICATION STAT 08/24/2024 4:31 AM [facility] TYPE + SCREEN PANEL STAT 08/24/2024 4 :31 AM [facility] HEMOGLOBIN A1C Add on 08/24/2024 4:31 AM [facility] PT-INR [facility] STAT 08/24/2024 4:31 AM [facility] COMPREHENSIVE METABOLIC PANEL STAT 08/24/2024 4:31 AM [facility] CBC W AUTO DIFFERENTIAL STAT 08/24/2024 4:31 AM [facility] GLUCOSE - POINT OF CARE Routine 08/24/2024 4:27 AM [facility] from Last 3 Months Results * CT Cervical Spine Wo Contrast (08/26/2024 4:36 PM [facility]) Anatomical Region Laterality Modality Spine Computed Tomogra phy 08/26/2024 4:50 PM [facility] Impressions 08/26/2024 5:51 PM [facility] IMPRESSION: 1.No acute intracranial process interval changes. 2.Uncomplicated postsurgical changes of the cervical spine C5-6 without evidence of interbody nonunion. 3.No evidence of acute fracture in the cervical spine. 4.Age indeterminate right eccentric posterior disc bulging at C3-C4 and concentric posterior disc bulging at C4-C5 are not associated with cord compression or significant spinal stenosis. The report is dictated by Tu Lerner DO, (doctor of radiology) INathan MD have personally reviewed and interpreted this examination/study. > Interpreting Provider: Nathan Grey MD on 08/26/2024 5:51 PM Narrative 08/26/2024 5:51 PM [facility] PROCEDURE: CT HEAD WO CONTRAST, CT CERVICAL SPINE WO CONTRAST, DATE/TIME OF EXAM: 08/26/2024 4:38 PM, LOCATION [facility] INDICATION: R51.9: Headache, unspecified headache type ADDITIONAL CLINICAL INFORMATION: Ordering Provider Reason For Exam: post TPA SANTOS, ro bleed (accession [id number]), ro fx, misalignment, DDD (accession [id number]) Technologist Note: Additional: EXAMINATION: 1. CT OF [...] CONTRAST,DATE/TIME OF EXAM: 08/26/2024 4:38 PM, LOCATION [facility] INDICATION: R51.9: Headache, unspecified headache type ADDITIONAL CLINICAL INFORMATION: Ordering Provider Reason For Exam: post TPA SANTOS, ro bleed (accession [id number]), ro fx, misalignment, DDD (accession [id number]) Technologist Note: Additional: EXAMINATION: 1. CT OF [...] report is dictated by Tu Lerner DO, (doctor of radiology) Nathan Huitron MD have personally reviewed and interpreted this examination/study. > Interpreting Provider: Nathan Grey MD on 08/26/2024 5:51 PM us Marcy Moody Javi PA-Ana CT ORDERABLES Final Resul t * CT HEAD WO CONTRAST (08/26/2024 4:36 PM [facility]) Only the most recent of2 resultswithin the time period is included. Anatomical Region Laterality Modality Head Computed Tomogra phy 08/26/2024 4:50 PM [facility] Impressions 08/26/2024 5:51 PM [facility] IMPRESSION: 1.No acute intracranial process interval changes. 2.Uncomplicated postsurgical changes of the cervical spine C5-6 without evidence of interbody nonunion. 3.No evidence of acute fracture in the cervical spine. 4.Age indeterminate right eccentric posterior disc bulging at C3-C4 and concentric posterior disc bulging at C4-C5 are not associated with cord compression or significant spinal stenosis. The report is dictated by Tu Lerner DO, (doctor of radiology) Nathan Huitron MD have personally reviewed and interpreted this examination/study. > Interpreting Provider: Nathan Grey MD on 08/26/2024 5:51 PM Narrative 08/26/2024 5:51 PM [facility] PROCEDURE: CT HEAD WO CONTRAST, CT CERVICAL SPINE WO CONTRAST, DATE/TIME OF EXAM: 08/26/2024 4:38 PM, LOCATION [facility] INDICATION: R51.9: Headache, unspecified headache type ADDITIONAL CLINICAL INFORMATION: Ordering Provider Reason For Exam: post TPA SANTOS, ro bleed (accession [id number]), ro fx, misalignment, DDD (accession [id number]) Technologist Note: Additional: EXAMINATION: 1. CT OF [...] CONTRAST,DATE/TIME OF EXAM: 08/26/2024 4:38 PM, LOCATION [facility] INDICATION: R51.9: Headache, unspecified headache type ADDITIONAL CLINICAL INFORMATION: Ordering Provider Reason For Exam: post TPA SANTOS, ro bleed (accession [id number]), ro fx, misalignment, DDD (accession [id number]) Technologist Note: Additional: EXAMINATION: 1. CT OF [...] report is dictated by Tu Lerner DO, (doctor of radiology) INathan MD have personally reviewed and interpreted this examination/study. > Interpreting Provider: Nathan Grey MD on 08/26/2024 5:51 PM us Marcy Caldwell PA-C CT ORDERABLES Final Resul t * (ABNORMAL) C-REACTIVE PROTEIN (08/26/2024 4:06 PM [facility]) Pathologist [facility] C-Reactive Protein 1.7(H) <=0.5 mg/dL 08/26/2024 4:55 PM [facility] Blood BLOOD SPECIMEN / Unknown Venipuncture / Unknown 08/26/2024 4:06 PM [facility] 08/26/2024 4:29 PM [facility] us Marcy CONNOLLYC LAB - CHEMISTRY ORDERABLES Final Result [address] [address], [facility] [phone] * (ABNORMAL) ERYTHROCYTE SEDIMENTATION RATE (08/26/2024 4:06 PM [facility]) [facility] Erythrocyte Sedimentation Rate Westergren 63(H) 0 - 30 MM/HR 08/26/2024 4:52 PM [facility] Blood BLOOD SPECIMEN / Unknown Venipuncture / Unknown 08/26/2024 4:06 PM [facility] 08/26/2024 4:28 PM [facility] us Marcy DOUGLAS-C LAB - HEMATOLOGY ORDERABLES Final Result [address] [address], [place] [phone] * CBC W AUTO DIFFERENTIAL (08/26/2024 4:06 PM [facility]) Only the most recent of2 resultswithin the time period is included. Pathologist [facility] WBC 10.5 4.0 - 10.7 x10E9/L 08/26/2024 4:34 PM [facility] RBC Count 4.43 3.90 - 5.20 x10E12/L 08/26/2024 4:34 PM [facility] Hemoglobin 13.0 11.9 - 15.8 g/dL 08/26/2024 4:34 PM [facility] Hematocrit 39.9 34.8 - 46.1 % 08/26/2024 4:34 PM [facility] MCV 90.1 80.0 - 98.0 fL 08/26/2024 4:34 PM [facility] MCH 29.3 26.7 - 33.6 pg 08/26/2024 4:34 PM [facility] MCHC 32.6 31.7 - 36.3 g/dL 08/26/2024 4:34 PM [facility] RDW-CV 13.9 11.3 - 14.8 % 08/26/2024 4:34 PM [facility] Platelet Count 261 150 - 420 x10E9/L 08/26/2024 4:34 PM [facility] MPV 10.3 7.8 - 11.4 fL 08/26/2024 4:34 PM [facility] Neutrophil % 63.7 41.0 - 74.0 % 08/26/2024 4:34 PM [facility] Lymphocyte % 28.0 17.0 - 47.0 % 08/26/2024 4:34 PM [facility] Monocyte % 6.6 3.0 - 11.0 % 08/26/2024 4:34 PM [facility] Eosinophil % 1.1 0.0 - 7.0 % 08/26/2024 4:34 PM [facility] Basophil % 0.2 0.0 - 1.6 % 08/26/2024 4:34 PM [facility] Immature Granulocytes % 0.4 0.0 - 1.0 % 08/26/2024 4:34 PM [facility] Neutrophil Absolute 6.67 1.60 - 7.50 x10E9/L 08/26/2024 4:34 PM [facility] Lymphocyte Absolute 2.93 1.00 - 4.40 x10E9/L 08/26/2024 4:34 PM [facility] Monocyte Absolute 0.69 0.15 - 1.00 x10E9/L 08/26/2024 4:34 PM [facility] Eosinophil Absolute 0.12 0.00 - 0.60 x10E9/L 08/26/2024 4:34 PM [facility] Basophil Absolute 0.02 0.00 - 0.13 x10E9/L 08/26/2024 4:34 PM [facility] Blood BLOOD SPECIMEN / Unknown Venipuncture / Unknown 08/26/2024 4:06 PM [facility] 08/26/2024 4:28 PM [facility] us Marcy Caldwell PA-C LAB - HEMATOLOGY ORDERABLES Final Result [facility] [address] [place] [address], [facility] [phone] * (ABNORMAL) COMPREHENSIVE METABOLIC PANEL (08/26/2024 4:06 PM [facility]) Only the most recent of2 resultswithin the time period is included. BUN 15 7 - 26 mg/dL 08/26/2024 4:55 PM [facility] Creatinine 0.85 0.56 - 0.96 mg/dL 08/26/2024 4:55 PM [facility] Sodium 143 136 - 145 mmol/L 08/26/2024 4:55 PM [facility] Potassium 4.2 3.5 - 4.5 mmol/L 08/26/2024 4:55 PM [facility] Chloride 106 98 - 107 mmol/L 08/26/2024 4:55 PM [facility] CO2 27 22 - 29 mmol/L 08/26/2024 4:55 PM [facility] Glucose 79 70 - 99 mg/dL 08/26/2024 4:55 PM [facility] Calcium 9.6 8.4 - 10.2 mg/dL 08/26/2024 4:55 PM [facility] Protein Total 7.7 6.0 - 8.3 g/dL 08/26/2024 4:55 PM [facility] Albumin 4.2 3.4 - 5.0 g/dL 08/26/2024 4:55 PM [facility] Bilirubin Total 0.3 0.2 - 1.2 mg/dL 08/26/2024 4:55 PM [facility] Alkaline Phosphatase 109 40 - 150 U/L 08/26/2024 4:55 PM [facility] ALT 19 5 - 55 U/L 08/26/2024 4:55 PM [facility] AST 16 5 - 34 U/L 08/26/2024 4:55 PM [facility] Anion Gap 10 6 - 16 08/26/2024 4:55 PM [facility] BUN/Creatinine Ratio 18 7 - 23 08/26/2024 4:55 PM [facility] Osmolality Calculated 296(H) 275 - 295 mOsm/kg 08/26/2024 4:55 PM [facility] Albumin/Globulin Ratio 1.2 1.1 - 2.3 08/26/2024 4:55 PM [facility] eGFR by CKD-EPI 81(L) >=90 mL/min/1.7 3 m2 08/26/2024 4:55 PM [facility] Blood BLOOD SPECIMEN / Unknown Venipuncture / Unknown 08/26/2024 4:06 PM [facility] 08/26/2024 4:29 PM [facility] us Marcy Caldwell PA-C LAB - CHEMISTRY ORDERABLES Final Result Performing Organization Address [facility]/State/ZIP Co de Phone Number [address] [address] [phone] * (ABNORMAL) CBC W/O DIFFERENTIAL (08/25/2024 1:37 AM [facility]) WBC 8.7 4.0 - 10.7 x10E9/L 08/25/2024 1:49 AM [facility] RBC Count 4.07 3.90 - 5.20 x10E12/L 08/25/2024 1:49 AM [facility] Hemoglobin 11.6(L) 11.9 - 15.8 g/dL 08/25/2024 1:49 AM [facility] Hematocrit 36.7 34.8 - 46.1 % 08/25/2024 1:49 AM [facility] MCV 90.2 80.0 - 98.0 fL 08/25/2024 1:49 AM [facility] MCH 28.5 26.7 - 33.6 pg 08/25/2024 1:49 AM [facility] MCHC 31.6(L) 31.7 - 36.3 g/dL 08/25/2024 1:49 AM [facility] RDW-CV 14.0 11.3 - 14.8 % 08/25/2024 1:49 AM [facility] Platelet Count 228 150 - 420 x10E9/L 08/25/2024 1:49 AM [facility] MPV 10.0 7.8 - 11.4 fL 08/25/2024 1:49 AM [facility] Blood BLOOD SPECIMEN / Unknown Venipuncture / Unknown 08/25/2024 1:37 AM [facility] 08/25/2024 1:46 AM [facility] us Marcos Lucio MD LAB - HEMATOLOGY ORDERABLES Final Result [address] [address], [facility] [phone] * (ABNORMAL) BASIC METABOLIC PANEL (CALCIUM TOTAL) (08/25/2024 1:37 AM [facility]) BUN 16 7 - 26 mg/dL 08/25/2024 2:15 AM [facility] Creatinine 0.79 0.56 - 0.96 mg/dL 08/25/2024 2:15 AM [facility] Sodium 142 136 - 145 mmol/L 08/25/2024 2:15 AM [facility] Potassium 3.7 3.5 - 4.5 mmol/L 08/25/2024 2:15 AM [facility] Chloride 108(H) 98 - 107 mmol/L 08/25/2024 2:15 AM [facility] CO2 24 22 - 29 mmol/L 08/25/2024 2:15 AM [facility] Glucose 113(H) 70 - 99 mg/dL 08/25/2024 2:15 AM [facility] Calcium 8.9 8.4 - 10.2 mg/dL 08/25/2024 2:15 AM [facility] Anion Gap 10 6 - 16 08/25/2024 2:15 AM [facility] BUN/Creatinine Ratio 20 7 - 23 08/25/2024 2:15 AM [facility] Osmolality Calculated 296(H) 275 - 295 mOsm/kg 08/25/2024 2:15 AM [facility] eGFR by CKD-EPI 89(L) >=90 mL/min/1.7 3 m2 08/25/2024 2:15 AM [facility] Blood BLOOD SPECIMEN / Unknown Venipuncture / Unknown 08/25/2024 1:37 AM [facility] 08/25/2024 1:46 AM [facility] Marcos Lucio MD LAB - CHEMISTRY ORDERABLES Final Result [address] [address], [place] [phone] * (ABNORMAL) GLUCOSE - POINT OF CARE (08/25/2024 1:35 AM [facility]) Only the most recent of4 resultswithin the time period is included. Glucose WB/POC 115(H) 70 - 99 mg/dL 08/25/2024 6:12 AM [facility] Specimen Type Venous 08/25/2024 6:12 AM [facility] Blood BLOOD SPECIMEN / Unknown 08/25/2024 1:35 AM [facility] 08/25/2024 6:12 AM [facility] us Marcos Lucio MD LAB - POINT OF CARE ORDERAB LES Final Result [facility] [address] [place] [address], [place] [phone] * MRI Brain Wo Contrast (08/24/2024 5:04 PM [facility]) Anatomical Region Laterality Modality Head Magnetic Resonan ce 08/25/2024 9:25 AM [facility] Impressions 08/25/2024 9:28 AM [facility] IMPRESSION: 1. No acute intracranial process. Specifically, no acute infarct or acute intracranial hemorrhage. > Interpreting Provider: Amy Denson MD on 08/25/2024 9:28 AM Narrative 08/25/2024 9:28 AM [facility] PROCEDURE: MRI BRAIN WO CONTRAST, DATE/TIME OF EXAM: 08/24/2024 5:04 PM, LOCATION [facility] INDICATION: R53.1: Right sided weakness ADDITIONAL [...] cervical spine appear normal. Procedure Note Amy eDnson MD - 08/25/2024 PROCEDURE: MRI BRAIN WO CONTRAST, DATE/TIME OF EXAM: 08/24/2024 5:04 PM, LOCATION [facility] INDICATION: R53.1: Right sided weakness ADDITIONAL [...] XR CHEST 1VW PORTABLE (08/24/2024 9:11 AM [facility]) Anatomical Region Laterality Modality Chest Digital Radiogra phy 08/25/2024 11:2 6 AM [facility] Narrative 08/25/2024 8:17 PM [facility] PROCEDURE: XR CHEST 1VW PORTABLE, DATE/TIME OF EXAM: 08/24/2024 9:11 AM, LOCATION [facility] INDICATION: R53.1: Right sided weakness ADDITIONAL CLINICAL INFORMATION: Ordering Provider Reason For Exam: stroke COMPARISON: No prior study is available for comparison. FINDINGS/IMPRESSION: Partially imaged cervical spine fusion hardware. There is no focal consolidation, pleural effusion, or pneumothorax. The cardiomediastinal silhouette is normal for portable technique. The visible bony thorax is intact. > Dictated by Frederic Love MD (doctor of radiology). Pedro Huitron MD have personally reviewed and interpreted this examination/study. > Interpreting Provider: Pedro Peoples MD on 08/25/2024 8:17 PM Procedure Note Pedro Peoples MD - 08/25/2024 PROCEDURE: XR CHEST 1VW PORTABLE, DATE/TIME OF EXAM: 08/24/2024 9:11 AM, LOCATION [facility] INDICATION: R53.1: Right sided weakness ADDITIONAL CLINICAL INFORMATION: Ordering Provider Reason For Exam: stroke COMPARISON: No prior study is available for comparison. FINDINGS/IMPRESSION: Partially imaged cervical spine fusion hardware. There is no focal consolidation, pleural effusion, or pneumothorax. The cardiomediastinal silhouette is normal for portable technique. Thevisible bony thorax is intact. > Dictated by Frederic Love MD (doctor of radiology). I, Pedro Peoples MD have personally reviewed and interpreted this examination/study. > Interpreting Provider: Pedro Peoples MD on 08/25/2024 8:17 PM us Marcos Lucio MD DIAGNOSTIC IMAGING ORDERABL ES Final Result * TROPONIN-I HIGH SENSITIVE REFLEX 1HOUR (08/24/2024 7:57 AM [facility]) [facility] Troponin I High Sensitive 4 <=14 ng/L 08/24/2024 8:43 AM [facility] Delta Troponin I HS 08/24/2024 8:43 AM [facility] Comment:Delta value intentio john not calculated. Baseline to 1 hour specimen collection interval exceeded. Blood BLOOD SPECIMEN / Unknown Venipuncture / Unknown 08/24/2024 7:57 AM [facility] 08/24/2024 8:09 AM [facility] us Marcos Lucio MD LAB - CHEMISTRY ORDERABLES Final Result [address] [address], [facility] [phone] * TROPONIN-I HIGH SENSITIVE BASELINE + 1HR (08/24/2024 6:19 AM [facility]) [facility] Troponin I High Sensitive 5 <=14 ng/L 08/24/2024 7:07 AM [facility] Blood BLOOD SPECIMEN / Unknown Venipuncture / Unknown 08/24/2024 6:19 AM [facility] 08/24/2024 6:33 AM [facility] us Marcos Lucio MD LAB - CHEMISTRY ORDERABLES Final Result [address] [address], [facility] [phone] * (ABNORMAL) LIPID PROFILE (08/24/2024 6:19 AM [facility]) [facility] Cholesterol Total 169 <200 mg/dL 08/24/2024 7:02 AM [facility] HDL 50 >40 mg/dL 08/24/2024 7:02 AM [facility] Comment: ATP III Classification of HDL Cholesterol: <40 mg/dL: Considered a major risk factor. >60 mg/dL: Considered a negative risk factor. LDL Calculated 108(H) <100 mg/dL 08/24/2024 7:02 AM [facility] Comment: ATP III Classification of LDL Cholesterol: <100 mg/dL: Optimal 100 - 129 mg/dL: Near Optimal/Above Optimal 130 - 159 mg/dL: Borderline High 160 - 189 mg/dL: High >190 mg/dL: Very High Triglycerides 57 <150 mg/dL 08/24/2024 7:02 AM [facility] Comment: ATP III Classification of Triglycerides: <150 mg/dL: Normal 150 - 199 mg/dL: Borderline High 200 - 400 mg/dL: High >500 mg/dL: Very High Blood BLOOD SPECIMEN / Unknown Venipuncture / Unknown 08/24/2024 6:19 AM [facility] 08/24/2024 6:33 AM [facility] us Marcos Lucio MD LAB - CHEMISTRY ORDERABLES Final Result [facility] [address] [place] [address], [facility] [phone] * EKG 12-LEAD (08/24/2024 4:50 AM [facility]) [facility] Ventricular Rate 80 BPM SL MUSE Atrial Rate 80 BPM [facility] M[facility] P-R Interval 156 ms [facility] QRS Duration ms 78 ms [facility] M[facility] Q-T Interval ms 378 ms [facility] QTC Calculation (Bezet) 435 ms [facility] MUSE Calculated P [place] 56 degrees [facility] MUSE Calculated R [place] -5 degrees [facility] MUSE Calculated T [place] 39 degrees [facility] Interpretation EKG NORMAL SINUS RHYTHM NORMAL ECG NO PREVIOUS ECGS AVAILABLE Confirmed by NJ CABEZAS MD ([id number]) on 08/25/2024 12:53:03 AM [facility] MUSE 08/24/2024 4:50 AM [facility] 08/25/2024 12:53 AM [facility] us Roland Smith MD ECG ORDERABLES Edited Result - Final Performing Organization Address [facility] Co de Phone Number [facility] * PT-INR [facility] (08/24/2024 4:31 AM [facility]) PT 12.4 12.1 - 14.8 Seconds 08/24/2024 5:03 AM [facility] INR 0.9 See Comment 08/24/2024 5:03 AM [facility] Comment:The suggested therap eutic range for standard coumadin (warfarin) therapy is an INR of 2.0-3.0. For high-risk patients (Mechanical Mitral Valve Prosthesis, etc.), the suggested prophylactic therapeutic range is an INR of 2.5-3.5. Blood BLOOD SPECIMEN / Unknown Venipuncture / Unknown 08/24/2024 4:31 AM [facility] 08/24/2024 4:39 AM [facility] Roland Smith MD LAB - COAGULATION ORDERABLES Final Result Performing Organization Address [facility] Co de Phone Number [facility] [address] [place] [address], [facility] [phone] * BLOOD TYPE VERIFICATION (08/24/2024 4:31 AM [facility]) Pathologist [facility] ABO Rh O POS 08/24/2024 7:5 0 AM [facility] B[facility]OD [facility]ANK LAB Blood Bank BLOOD SPECIMEN / Unknown Venipuncture / Unknown 08/24/2024 4:31 AM [facility] 08/24/2024 6:44 AM [facility] Marcos Lucio MD LAB - BLOOD BANK ORDERABLES Final Result Performing Organization Address [facility]/ZIP Co de Phone Number [facility] [address] [place] [phone], [facility] [phone] * HEMOGLOBIN A1C (08/24/2024 4:31 AM [facility] [facility]) Pathologist [facility] Hemoglobin A1c 5.3 <=5.6 % 08/25/2024 9:35 AM [facility] Estimated Average Glucose 105 mg/dL 08/25/2024 9:35 AM [facility] Comment: HbA1c Interpretation: Normal : < 5.7% Pre-diabetes: 5.7-6.4% Diabetes: Equal to or greater than 6.5% Test results diagnostic of diabetes should be repeated for confirmation. Treatment target values recommended by ADA and other clinical organizations should be used to evaluate metabolic control in patients. Reference: [place] [employer], Standards of Care in Diabetes -2020 In patients 70 years and older consider HbA1c target range of 7.0-7.5% (Reference: Juan Diego Varma et al. JAMDA. 2012) The Sebia assay for the measurement of HbA1c is a National Glycohemoglobin Standardization Program (NGSP) certified method. Blood BLOOD SPECIMEN / Unknown Venipuncture / Unknown 08/24/2024 4:31 AM COMMERCIAL ATTACHE 08/24/2024 4:39 AM COMMERCIAL ATTACHE us Marcos Lucio MD LAB - CHEMISTRY ORDERABLES Final Result Performing Organization Address City/[facility]/ZIP Co de Phone Number [address] [address], [facility] [phone] * TYPE + SCREEN PANEL (08/24/2024 4:31 AM COMMERCIAL ATTACHE) Antibody Screen NEG 5:48 AM [facility] LAB ABO Rh O POS 08/24/2024 5:48 AM [facility] BLOOD [facility] LAB Blood Bank BLOOD SPECIMEN / Unknown Venipuncture / Unknown 08/24/2024 4:31 AM COMMERCIAL ATTACHE 08/24/2024 5:06 AM COMMERCIAL ATTACHE us Roland Smith MD LAB - BLOOD BANK ORDERABLES F inal Result Performing Organization Address City/[facility]/ZIP Co de Phone Number [facility] [address] [place] [id number], [place] [phone] from Last 3 Months Insurance [employer]M AETNA MEDICARE ADV Advance Directives * Full Code (Latest Code Status on File) Date Activated Date Inactivated Comments 08/24/2024 6:15 AM 08/25/2024 3:34 PM Care Teams 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
--- OUTSIDE RECORDS SUMMARY | 2024-11-19 11:40 | XMS_ITS | Clinical Summary ---
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
--- OUTSIDE RECORDS SUMMARY | 2024-11-19 11:40 | XMS_ITS | Referral Summary ---
Author Organization [facility] Address [address] [place] [address] Care Team Providers Care Manager Career Name Role Phone Rakan Patel MD Primary Care Provider Heber Cha MD Unavailable [phone] Ruddy Benites Unavailable [phone] Allergies Active Allergy Reactions Criticality Noted Date [...] (04/28/2021): Added automatically from request for surgery [id number] Cervical radiculopathy 02/12/2015 Immunizations Immunization Administration Dates [...] on file Legal Sex Female 12:30 PM DIE SETTER Gender Identity Not on file Sexual Orientation Not on file Last Filed Vital Signs Vital Sign Reading Time Taken Comments Blood Pressure 154/89 06/07/2023 10:56 AM DIE SETTER Pulse 88 06/07/2023 10:56 AM DIE SETTER Temperature 36.7 C (98 F) 11/23/2021 5:06 PM CDT Respiratory Rate 18 11/23/2021 8:55 PM CDT Oxygen Saturation 94% 06/07/2023 10:56 AM DIE SETTER Inhaled Oxygen Concentration - - Weight 121.1 kg (267 lb) 06/07/2023 10:56 AM DIE SETTER Height 177.8 cm (5' 10 ) 06/07/2023 10:56 AM DIE SETTER Body Mass Index 38.31 06/07/2023 10:56 AM DIE SETTER Plan of Treatment Not on file Medical Devices Implanted Type Area Brokerage Clerk Device Identifier Shelf Expiration Date Model / Serial / Lot Musculoskeletal Transplant [id number] 4-30mm Allograft Frozen [id number] Wedge Graft Bone - [id number] - [id number] Implanted:Qty: 1 on 06/07/2021 by Heber Cha MD at [facility] Bone N/A: Spine Cervical Musculoskeletal Transplant 01/30/2025 [id number] / [id number] / [employer] [id number] Xtend L32 Mm 2 Level Spine; Cervical; Anterior Plate Bone - [id number] Implanted:Qty: 1 on 06/07/2021 by Heber Cha MD at [facility] N/A: Other - see comments [employer] 161.232 / / Description:Cervical Spine [employer] 161.314 Xtend Od4.2 Mm L14 Mm Variable Angle; Self Tap Spine Screw Bone - [id number] Implanted:Qty: 4 on 06/07/2021 by Heber Cha MD at [facility] N/A: Other - see comments [facility] [employer] 161.314 / / Description:Cervical Spine [facility] 665.614 L14 Mm Spine Distractor Surgical - [id number] Implanted:Qty: 2 on 06/07/2021 by Heber Cha MD at [facility] N/A: Other - see comments [facility] 665.614 / / Description:Cervical Spine Procedures Procedure [...] to request sample to be sent to [facility] for Hepatitis C Virus (HCV) RNA Detection and Quantitation by Real-Time Reverse Phone Banker-PCR (RT-PCR). Current interpretive data was last revised on 2011 us Ruddy Velez MD LAB BLOOD ORDERABLES Final Re sult HISTORICAL RESULTS from Last 3 Months or Most Recently Relevant to Health Maintenance Insurance [facility] Advance Directives For more information, please contact: [phone] * Full Code (Latest Code Status on File) Date Activated Date Inactivated Comments 06/07/2021 1:31 PM 06/08/2021 8:41 PM * Full Code Date Activated Date Inactivated Comments 04/21/2021 10:29 AM 04/22/2021 4:47 AM Care Teams Manager Career Relationship Specialty Start Date End Date Rakan Patel MD [address] [facility] [address] [place] [address] PCP - General Family Medicine 03/11/21 Heber Cha MD [address] [place] [address] Surgeon Neurosurgery 02/12/15 Ruddy Benites PA [address] [facility] [address] [place] [address] Physician Blade Boner Neurosurgery 03/17/21
--- OUTSIDE RECORDS SUMMARY | 2024-11-19 11:40 | XMS_ITS | Clinical Summary ---
Author Organization [facility] Address [facility] [place] [address] Care Team Providers Care Fashion Consultant Sales Name Role Phone None, Provider MD Primary [...] this topic Insurance MEDICAID AETNA Care Teams Fashion Consultant Sales Relationship Specialty Start Date End Date None, Provider, PCP - General UNKNOWN PHYSICIAN SPECIALTY 11/23/23
--- NOTE | 2024-11-19 12:18 | P.CONNEU_ITS ---
Assessment and Plan Assessment and plan (1) TIA (transient ischemic attack): Code(s): G45.9 - Transient cerebral ischemic attack, unspecified Status: Acute Plan 1 TIA with history of the previous admission resulting in transfer to [facility] and being discharged with any anticoagulation therapy. 2. Recurrence of the TIA with unclear understanding by the patient worked with the previous diagnosis. 3 at present diagnosis explained to her it is TIA she continue aspirin 81mg daily 4 she has had head and neck CTA x2 will benefit from the echocardiogram for the long-term follow-up. She is already on atorvastatin 40mg daily. Consult date: 11/19/24 HPI: Irma Urbina is a 54 year old female Admitted to the hospital through the emergency room for the complaints of right sided weakness involving the right upper and lower extremity in addition to the hypertension. Patient does have ongoing history of 1. Obstructive sleep apnea 2. GERD 3. Cerebrovascular accident documented on August 24, 2024. Reportedly she began to feel heavy and weak in her right upper and right lower extremity, her blood pressure at that time was 180 over 100, she took her antihypertensive medication and recheck the blood pressure 5minutes which came down to 140s over 80 she thought her weakness improved in the right upper and right lower extremity, she has been taking veozah 45mg daily, and she is allergic to vancomycin. She does have ongoing history of anxiety with chronic neck pain and has undergone cervical spine surgery in the past. She is a never a smoker only socially alcohol drinker and her initial exam in the ER was normal, vital signs were normal, CBC, was normal BUN was low. master scan was negative, so as the urine analysis, CT of the head was negative for the bleed, patient has been treated with a previous stroke in August of 2024 at [facility] , for this reason [facility] stroke team was contacted and as per their recommendation she was not a candidate for repeat Treatment and was hospitalized here. Review of Systems 2 Review of Systems: All systems reviewed & are unremarkable except as noted in HPI and below PMFSH Past Medical History Medical History Hypertension Gastroesophageal reflux Pulmonary nodule Anxiety Chronic neck pain Surgical History Surgical History History of bunionectomy of left great toe History of bilateral breast reduction surgery History of hysterectomy History of carpal tunnel release History of section History of cervical spinal surgery History of arthroscopy of right shoulder Family History Family History Sibling Family history of suicide Mother Cancer Father Stomach cancer Social History Social History Social History: Surrogate medical decision maker: Tony Conklin (son) or Renzo Urbina (spouse). Code status: Full code. Smoking status: Never smoker Second hand tobacco smoke exposure: Yes Alcohol intake: current Alcohol use details: Social alcohol use in moderation. Substance use: current Substance use type: marijuana Last use: 09/2022 Do You Feel Safe in your Home?: Yes Lack of Transportation: No Lack of Food: Never True Current Housing: I Have Housing Concerned About Future Housing: No Difficulty Paying Gas/Electric Bills: No Difficulty Paying for Meds: No Currently Unemployed: YES Education: High School Diploma/GED Difficulty w/ Childcare or Family Care: No Living arrangements: with family Occupation/Education: unemployed Gender identity (if verbalized by the patient): Female Sexual Orientation (if Verbalized by the Patient): Straight or Heterosexual Spiritual care concerns: No Meds Home Medications and Allergies Home Medications ?Medication ?Instructions ?Recorded ?Confirmed ?Type albuterol sulfate 90 mcg/actuation 2 inh inhalation Q4-6H PRN 06/19/23 11/19/24 Rx aerosol inhaler shortness of breath or wheezing #8.5 grams ipratropium 0.5 mg-albuterol 3 mg 3 ml inhalation Q4H PRN shortness 06/19/23 11/19/24 Rx (2.5 mg base)/3 mL nebulization of breath or wheezing #90 mL soln meloxicam 7.5 mg tablet 7.5 mg PO BID #60 tabs 06/19/23 11/19/24 Rx fezolinetant 45 mg tablet (Veozah) 45 mg PO DAILY 11/16/23 11/19/24 History gabapentin 600 mg tablet 600 mg PO QID #120 tabs 05/25/24 11/19/24 Rx methocarbamol 750 mg tablet 750 mg PO TID PRN muscle spasm #60 08/29/24 11/19/24 Rx tabs montelukast 10 mg tablet 10 mg PO DAILY #90 tabs 08/29/24 11/19/24 Rx (Singulair) pantoprazole 40 mg tablet,delayed See Rx Instructions .Route 08/29/24 11/19/24 Rx release .COMPLEX #90 tabs valacyclovir 500 mg tablet 500 mg PO DAILY #90 tabs 09/27/24 11/19/24 Rx (Valtrex) amlodipine 5 mg tablet 5 mg PO DAILY 11/19/24 11/19/24 History atorvastatin 40 mg tablet 40 mg PO QPM 11/19/24 11/19/24 History Allergies Allergy/AdvReac Type Severity Reaction Status Date / Time vancomycin Allergy Unknown Unknown Verified 10/25/24 14:12 Vital Signs Vital Signs - 24 hr 11/19/24 00:48 11/19/24 01:45 11/19/24 02:49 Temperature 36.4 C Pulse Rate 73 69 Respiratory Rate 18 14 Blood Pressure 146/81 H 160/95 H Pulse Oximetry 98 100 100 Oxygen Delivery Room Air 11/19/24 04:48 11/19/24 05:27 11/19/24 07:45 Temperature 36.4 C 36.5 C Pulse Rate 72 72 73 Respiratory Rate 15 15 Blood Pressure 142/84 H 145/89 H Pulse Oximetry 100 99 Oxygen Delivery 11/19/24 08:00 11/19/24 08:00 11/19/24 10:00 Temperature Pulse Rate 67 78 Respiratory Rate Blood Pressure Pulse Oximetry Oxygen Delivery Room Air Exam 2 Narrative: Revealed her to be awake alert cooperative in no acute distress, head normocephalic with no cranial bruit, ear nose throat examination is normal, neck supple with no cervical bruit no restricted range of motions, no lymphadenopathy, heart regular with no murmur, lungs clear to auscultation with no rhonchi or crepitations, abdomen is soft nontender with normal bowel sounds, neurologically she is awake alert oriented times4, his speech not dysphasic not dysarthric not dysphonic, pupils round regular reacting to light equally, extraocular movements are full in all 4 quadrants with no evidence of nystagmus, facial sensation intact to touch, face symmetrical, tongue in the oral cavity with no fasciculation, uvula in the midline, and motor examination revealed her to have normal strength and tone in upper and lower extremities proximally and distally with no evidence of any abnormal movement, sensory examination intact, there is no evidence of ataxia or dysmetria on finger to nose to finger heel to knee to brunner, Results Labs 11/19/24 01:44 11/19/24 01:44 Labs: Short CBC 11/19/24 Range/Units 01:44 WBC 6.4 (4.5-10.0) K/mm3 Hgb 11.1 L (12.0-15.0) g/dL Hct 35.9 L (37.0-47.0) % Plt Count 189 (150-375) k/mm3 BMP 11/19/24 01:44 Sodium 141 Potassium 3.6 Chloride 105 Carbon Dioxide 29 BUN 11 D Creatinine 0.69 L Glucose 110 Calcium 8.9 Cardiac Enzymes 11/19/24 Range/Units 01:44 Troponin I < 0.012 (0.000-0.034) ng/mL Liver Function 11/19/24 Range/Units 01:44 Total Bilirubin 0.4 (0.2-1.3) mg/dL AST 39 H (14-36) U/L ALT 49 H (6-35) U/L Alkaline Phosphatase 98 (38-126) U/L Albumin 3.8 (3.5-5.1) g/dL Urine 11/19/24 Range/Units 02:39 Urine Color Yellow (Yellow) Urine Appearance Clear (Clear) Urine pH 6.0 (5.0-9.0) Ur Specific [place] 1.028 (1.001-1.035) Urine Protein Negative (Negative) mg/dL Urine Glucose (UA) Negative (Negative) mg/dL
--- NOTE | 2024-11-19 15:19 | P.DS_ITS ---
DS: Admitting Diagnosis Discharge Date 11/19/2024 Admitting Diagnosis High blood pressure DS: Discharge Diagnosis Discharge Diagnosis (1) Right sided weakness: Code(s): R53.1 - Weakness Status: Acute Assessment and Plan: * Last known well 2300 yesterday * Initial NIH score of 2 * Patient was determined to not be a candidate for thrombolytics by the [facility] stroke team * Patient will be kept here and monitored with appropriate workup and Neurology consulted. * Fall precautions * Consult neurology * MRI with and without of brain * Echo * Carotid Dopplers (2) Hypertension: Code(s): I10 - Essential (primary) hypertension Status: Chronic Assessment and Plan: * Acute on chronic exacerbation * Continue home medications (3) Headache: Code(s): R51 - Headache Status: Acute Assessment and Plan: * Most likely secondary to hypertension. * P.r.n. analgesia as needed (4) GERD (gastroesophageal reflux disease): Code(s): K21.9 - Gastro-esophageal reflux disease without esophagitis Status: Chronic Assessment and Plan: * Continue PPI therapy DS: Summary Hospital Course Hospital Course: H&P-Narrative: This 64-year-old female patient with history of GERD, previous CVA and August of 2024 treated [facility], anxiety, chronic neck pain comes to the emergency room with complaints of having acute onset right arm and right leg heaviness today with associated high blood pressure. Patient's last known well was at 11:00 p.m. yesterday. Patient states she was ?yelling at them kids when she noticed she was having weakness on the right side. She check her blood pressure and that time and was noted to be 184/106. Patient states she took a few minutes later in her blood pressure was 140s over 80s but she still felt weak so she decided to come to the emergency room for evaluation. At no point did she endorse any chest pain, dyspnea, headache. She did say she had some blurriness to her vision in both eyes that as her blood pressure came down that has resolved. Upon presentation to the emergency room her NIH was 2 for drift of both the right upper and lower extremities without touching bed. Patient is a nonsmoker, she admits to social alcohol approximately once a month and states she uses marijuana 2 to 3 times a week to help with her sleep. She denies any head trauma, injury or inciting event and she denies nausea, vomiting, diarrhea. Patient at this time actually states that her weakness is resolving as well. patient with history of barragan and now presented with right upper and lower extremities weakness, which resolved, and patient was able to participate with PT. to further evaluate patient had CT, CTA of head and neck which was normal, and MRI did not show any acute injury, patient was seen by the neurologist and suspect patient had TIA, recommended to discharge patient on baby aspirin diaily. patient BP trended down, and patient is clinically stable, will discharge home today. Time Spent with Patient Time attestation: Total time spent providing and/or coordinating discharge services: Exam Narrative: Patient is comfortable, NAD HEENT: eyes are clear and none icteric LUNGS:CTA HEART: RR S1S2 ABD: BS+, Soft and nontender Lower extremities: no edema SKIN: nonjaundiced Neuro: grossly intact. DS: Data Data Completed and Pending Labs on day of discharge: Labs from last 24 hours 11/19/24 11/19/24 11/19/24 02:39 01:47 01:44 WBC 6.4 RBC 3.89 L Hgb 11.1 L Hct 35.9 L MCV 92.3 MCH 28.5 MCHC 30.9 L RDW 13.3 Plt Count 189 MPV 9.9 Immature Gran % (Auto) 0.2 Neut % (Auto) 49.0 Lymph % (Auto) 38.7 [place] % (Auto) 9.1 H Eos % (Auto) 2.7 Baso % (Auto) 0.3 Lymph # (Auto) 2.46 [place] # (Auto) 0.6 Eos # (Auto) 0.2 Baso # (Auto) 0.0 Abs Immat Gran (auto) 0.01 Absolute Neuts (auto) 3.1 Absolute Nucleated RBC 0.000 Nucleated RBC % 0.0 PT 13.0 INR 0.9 APTT 30.0 Sodium 141 Potassium 3.6 Chloride 105 Carbon Dioxide 29 Anion Gap 7 BUN 11 D Creatinine 0.69 L Estim Creat Clear Calc Not Reportable Estimated GFR > 60 Glucose 110 POC Capillary Glucose Calcium 8.9 Total Bilirubin 0.4 AST 39 H ALT 49 H Alkaline Phosphatase 98 Troponin I < 0.012 Total Protein 7.0 Albumin 3.8 Urine Color Yellow Urine Appearance Clear Urine pH 6.0 Ur Specific [place] 1.028 Urine Protein Negative Urine Glucose (UA) Negative Urine Ketones Negative Ur Blood (Man) Negative Urine Nitrate Negative Urine Bilirubin Negative Urine Urobilinogen 0.2 Leukocyte Esterase Rfl Negative 11/19/24 01:40 WBC RBC Hgb Hct MCV MCH MCHC RDW Plt Count MPV Immature Gran % (Auto) Neut % (Auto) Lymph % (Auto) [place] % (Auto) Eos % (Auto) Baso % (Auto) Lymph # (Auto) [place] # (Auto) Eos # (Auto) Baso # (Auto) Abs Immat Gran (auto) Absolute Neuts (auto) Absolute Nucleated RBC Nucleated RBC % PT INR APTT Sodium Potassium Chloride Carbon Dioxide Anion Gap BUN Creatinine Estim Creat Clear Calc Estimated GFR Glucose POC Capillary Glucose 113 H Calcium Total Bilirubin AST ALT Alkaline Phosphatase Troponin I Total Protein Albumin Urine Color Urine Appearance Urine pH Ur Specific [place] Urine Protein Urine Glucose (UA) Urine Ketones Ur Blood (Man) Urine Nitrate Urine Bilirubin Urine Urobilinogen Leukocyte Esterase Rfl Discharge Plan Discharge Attending physician on discharge: Gallo Smith Consulting providers: Irish Hilario; Cara Do; Maico Kirk; Alexsander Ferrer; Franc aH Discharging Clinician: Paul Strickland Patient Disposition: Home Activity: as tolerated Diet: heart healthy Discharge Instructions: patient to follow up with her primary care provider as soon as possible, patient is instructed if any symptoms redevelop to go to nearest ER. patient to take a baby aspirin daily. Patient Instructions: Antibiotic Form, Angina (DC), Chronic Hypertension (DC) Patient Language: French Stand Alone Forms: General Discharge Information Follow-up/Referrals: Rakan Patel MD [Primary Care Provider] - Discharge Medications: New aspirin 81 mg tablet,delayed release (DR/EC) 81 mg PO DAILY Qty: 30 0RF Continued Veozah 45 mg tablet 45 mg PO DAILY montelukast [Singulair] 10 mg tablet 10 mg PO DAILY Qty: 90 2RF pantoprazole 40 mg tablet,delayed release (DR/EC) See Rx Instructions .ROUTE .COMPLEX Qty: 90 2RF Dose Instruction: TAKE 1 TABLET BY MOUTH EVERY DAY IN THE MORNING Rx Instructions: TAKE 1 TABLET BY MOUTH EVERY DAY IN THE MORNING methocarbamol 750 mg tablet 750 mg PO TID PRN (Reason: muscle spasm) Qty: 60 0RF amlodipine 5 mg tablet 5 mg PO DAILY atorvastatin 40 mg tablet 40 mg PO QPM albuterol sulfate 90 mcg/actuation HFA aerosol inhaler 2 inh INHALATION Q4-6H PRN (Reason: shortness of breath or wheezing) Qty: 8.5 2RF ipratropium-albuterol 0.5 mg-3 mg(2.5 mg base)/3 mL solution for nebulization 3 ml INHALATION Q4H PRN (Reason: shortness of breath or wheezing) Qty: 90 3RF meloxicam 7.5 mg tablet 7.5 mg PO BID Qty: 60 2RF gabapentin 600 mg tablet 600 mg PO QID Qty: 120 0RF valacyclovir [Valtrex] 500 mg tablet 500 mg PO DAILY Qty: 90 3RF Date of admission: 11/19/24 10:31 Primary Care Provider: Rakan Patel Admitting Provider: Gallo Smith Attending physician on admission: Paul Strickland Condition: Stable
--- NOTE | 2024-11-19 16:02 | PC.NURSE ---
REviewed discharge education, instructions, and medications with the patient. IV removed.
== END 2024-11-19 15:57 | disposition home or self-care (01) ==
LOC: ANHED 03:09 → ANHIMU 15:17
PROVIDERS: Admitting Provider Internal Medicine; Emergency Provider Physician Assistant; PCP Family Medicine; Visit Provider Family Medicine
DX: R53.1 Weakness (principal); I10 Essential (primary) hypertension; R51.9 Headache, unspecified; H53.8 Other visual disturbances; K21.9 Gastro-esophageal reflux disease without esophagitis; G47.33 Obstructive sleep apnea (adult) (pediatric); M54.2 Cervicalgia; G89.29 Other chronic pain; R91.1 Solitary pulmonary nodule; Z79.51 Long term (current) use of inhaled steroids; Z79.899 Other long term (current) drug therapy; Z86.73 Personal history of transient ischemic attack (TIA), and cerebral infarction without residual deficits; Z98.890 Other specified postprocedural states
CPT/HCPCS: 36415; 70450; 70496; 70498; 70553; 71045; 80053; 81003; 82948; 84484; 85025; 85610; 85730; 93005; 93306; 96374; 96375; 97161; 97165; 99285; A9270; A9579; G0378; Q9967

== ENCOUNTER 2025-01-14 08:02 | Outpatient (CLI) | payer MEDICARE, SELFPAY ==
--- NOTE | ~2025-01-14 | MR_ITS ---
MRI of the lumbar spine Clinical History: Spinal stenosis Technique: Axial T2-weighted and gradient images, and sagittal T1-weighted, T2-weighted, and STIR blair ges were acquired. Findings: No fracture identified. Minimal grade 1 anterolisthesis of L4 over L5 present. No bone michi ow signal reality seen. At L1-L2, L2-L3, L3-L4, there is no disc bulge or herniation. There is moderate facet arthropathy at these levels. No spinal canal stenosis or neural foraminal narrowing at these levels. At L4-L5, there is minimal disc bulge with severe facet arthropathy. No central canal stenosis or zoë ral foraminal narrowing. At L5-S1, there is diffuse disc bulge with superimposed central disc extrusion, which mildly effaces the thecal sac on the left side. There is probable impingement of descending left S1-S2 level nerve r oot. Neural foramina at this level are narrowed mildly on the left, and moderately on the right. Paravertebral soft tissues are otherwise unremarkable. Impression: Disc bulge with superimposed central to left paracentral disc extrusion at L5-S1, which effaces the t hecal sac and probably impinges the descending left S1-S2 level nerve root. Bilateral neural foraminal narrowing at L5-S1, as detailed above. Reviewed, dictated and finalized at location M. Impression: Disc bulge with superimposed central to left paracentral disc extrusion at L5-S 1, which effaces the thecal sac and probably impinges the descending left S1-S2 level nerve root. Bilateral neural foraminal narrowing at L5-S1, as detailed above.
== END 2025-01-14 08:03 | disposition home or self-care (01) ==
LOC: MICIMG 08:02
PROVIDERS: PCP Family Medicine; Visit Provider Nurse Practitioner Family
DX: M51.26 Other intervertebral disc displacement, lumbar region (principal); M48.07 Spinal stenosis, lumbosacral region; M48.061 Spinal stenosis, lumbar region without neurogenic claudication
CPT/HCPCS: 72148

== ENCOUNTER 2025-07-08 14:28 | Outpatient (CLI) | payer MEDICARE, SELFPAY ==
--- NOTE | ~2025-07-08 | MM_ITS ---
EXAMINATION: [facility] screening [facility] w [facility]ay[facility] HISTORY: Screening. Bilateral reduction mammoplasty. TECHNIQUE: Craniocaudal and mediolateral oblique 3-D tomosynthesis images were obtained and synthetic 2-D images were generated. CAD analysis was submitted and interpreted. COMPARISON: 2023 and 2018 BREAST PARENCHYMAL COMPOSITION: Dense: The breasts are heterogeneously dense, which may obscure small masses. FINDINGS: No suspicious masses are seen. There are no suspicious calcifications. Again seen is postsurgical distortion on both sides. No unexplained architectural distortion is seen. There are no skin or nipple abnormalities identified. There is no adenopathy seen on the images submitted. IMPRESSION: No mammographic evidence to suggest malignancy is seen. The patient may return to screening mammography as per ACR guidelines. BI-RADS 2 - Benign. Reviewed, dictated and finalized at location C. ITUTIONAL RESEARCH COORDINATOR
== END 2025-07-08 14:29 | disposition home or self-care (01) ==
LOC: MICIMG 14:29
PROVIDERS: PCP Family Medicine; Visit Provider Obstetrics & Gynecology
DX: Z12.31 Encounter for screening mammogram for malignant neoplasm of breast (principal)
CPT/HCPCS: 77063; 77067